=== PATIENT | female | born 1965 | race Caucasian/White ===

== ENCOUNTER 2016-09-29 10:06 | Emergency (ER) | payer BC ==
[~2016-09-29] VITALS: Ht 165.1 cm; Wt 85.0 kg
[~2016-09-29 10:06] MED LIST: ACET-1256 PO; ALBU1AER9 INH; CALCTAB5 PO; CHOL100010 PO; FLAX12003 PO; FRRS300 PO; GLUC10007 PO; MULT-506 PO; OMEG10007 PO; PHYT100T PO; PROP20TA67 PO; VITA100C4 PO
[2016-09-29 10:12] VITALS: TEMP 36.6; Ht 165.1 cm; Wt 85.0 kg
[2016-09-29 10:15] VITALS: O2SAT 99
[2016-09-29 10:58] VITALS: BP 128/77; PULSE 82; O2SAT 97
--- NOTE | 2016-09-29 13:17 | EMERGENCY ROOM VISIT NOTE ---
History Report prepared by Joss: Kristyn Madsen Under the Supervision of: Dr. Deiran Sadnoval M.D. First contact with patient: 10:10 Chief Complaint: CARDIAC ASSESSMENT Stated Complaint: TACHYCARDIA History of Present Illness The patient is a 51 year old female who presents to the Emergency Room as referred by [facility] for a cardiac assessment as she experienced an episode of palpitations and tachycardia just prior to arrival. Currently, patient states that she is feeling better as she had relief after taking Propranolol after the start of her symptoms. At the time of onset of symptoms, patient was at an appointment with [facility] when she suddenly experienced a sensation in her throat that she contracts when she is going into an episode of supraventricular tachycardia, which she notes history of for the past 30 years. Along with the sensation in her throat, patient also felt palpitations to her chest, and she became dizzy and hypotensive. After developing these symptoms, which are all consistent of her past episodes of SVT , patient took Propranolol, as she is instructed to PRN, which did help to relieve her symptoms. Throughout this episode, patient denies having chest pain , shortness of breath, nausea or vomiting. She also denies LOC or other acute complaints. Patient states that she did not experience any new symptoms during this episode that are different than she has had in the past, and as she is now feeling better, she does not wish for additional testing. Source of History: patient Onset: just prior to arrival Position: chest Symptom Intensity: no current pain Quality: other (palpitations) Timing: resolved Modifying Factors (Relieving): other (Propranolol) Associated Symptoms: No LOC, No SOB, No chest pain, No nausea, No vomiting Note: Patient felt dizzy and tachycardic. She was also hypotensive. Review of Systems See HPI for pertinent positives & negatives. A total of 10 systems reviewed and were otherwise negative. Past Medical & Surgical Medical Problems: (1) ATRIAL FIBRILLATION (2) CARDIAC DYSRHYTHMIA NOS (3) Heart disease (4) LYME DISEASE (5) PANIC DISORDER (6) PAROX ATRIAL TACHYCARDIA (7) SOCIAL PHOBIA Family History Lyme disease Social History Smoking Status: Never Smoker Alcohol Use: none Marital Status: Housing Status: lives with significant other Occupation Status: employed Current/Historical Medications Scheduled Acetaminophen (Tylenol), 1,000 MG PO PRN Calcium (Caltrate), 600 MG PO DAILY Cholecalciferol (Vitamin D), 1,000 INTER.UNIT PO DAILY Ferrous Sulfate (Iron Supplement *), 325 MG PO DAILY Fish Oil ([place]-3), 1-2 TABLETS PO DAILY Flaxseed (Linseed) (Flaxseed Oil), 1 CAPSULE PO DAILY Glucosamine Sulfate (Glucosamine), 1,000 MG PO DAILY Multivitamin (Multivitamin), 1 TAB PO DAILY Phytonadione (Vitamin K), 100 MCG PO DAILY Tocopheryl Acet,Dl-Alpha (Vitamin E), 100 INTER.UNIT PO DAILY Scheduled PRN Albuterol (Proair Hfa), 2 PUFFS INH 4-6 hrs PRN for SOB/Wheezing Propranolol (Inderal), 20 MG PO TID PRN for palpitations Allergies Coded Allergies: Penicillins (Verified Allergy, Intermediate, 02/02/15) RASH Cephalosporins (Unverified Allergy, Unknown, [facility], 09/29/16) Physical Exam Vital Signs Date Time Temp Pulse Resp B/P Pulse Ox O2 Delivery O2 Flow Rate FiO2 09/29/16 10:58 82 16 128/77 97 09/29/16 10:15 99 Room Air 09/29/16 10:14 89 09/29/16 10:12 36.6 91 18 109/71 95 Room Air Physical Exam GENERAL: Patient is a healthy-appearing well-nourished 51 year old female. HEAD: Normocephalic atraumatic EYES: Ocular movements intact pupils equal and react to light OROPHARYNX mucous membranes are moist no exudates present no erythema or edema present NECK: Supple no nuchal rigidity CHEST: Good equal expansion LUNGS: Clear and equal to auscultation CARDIAC: Normal S1 and S2 ABDOMEN: Soft nontender no guarding BACK: No CVA tenderness EXTREMITIES: No pain upon palpation normal muscle strength in all groups no clubbing cyanosis or edema NEURO: Patient is following commands is answering questions appropriately. Alert and oriented x3 Cranial Nerves 2-12 grossly intact Medical Decision & Procedures ECG Indication: palpitations Rate (beats per minute): 82 Rhythm: normal sinus Findings: no acute ischemic change, no ectopy ED Course 1013: Past medical records reviewed. The patient was evaluated in room B12. A complete history and physical examination was performed. 1030: I discussed my findings of the patients exam with her at this time. 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 Additional discharge instructions were discussed. She verbalized her understanding and agreement with the treatment plan, and she is now ready for disposition. Medical Decision Differential diagnosis: Etiologies such as premature contractions, electrolyte abnormality, cardiac dysrhythmia, thyroid dysfunction, pulmonary embolism, infection, gastrointestinal, as well as others were entertained. This is a 51-year-old female who presents emergency department complaining of an episode of tachycardia. I will note that the patient has been having these episodes of tachycardia since she was 21 years old. The patient normally takes her propanolol medication and follows up with cardiology. She was sent here by [facility] in [facility]. She currently has no complaints and is refusing IV blood work. The patient feels that she does not need any further workup as she is at her baseline and has been ongoing for the past 20 years. I recommended that she follow up with cardiology. The patient has demonstrated no significant defect in the decision-making capacity to make choices. The encounter had a good level of communication with language the patient can easily understand. I feel trust was present and conveyed that our action/intentions were the best interest of the patient. The patient was given all relevant information and reiterated the explained risks and benefits. The patient explained the reasoning for refusing treatment clearly. The patient possesses and expresses a set of values and goals, the ability to communicate and understand, and an ability to reason and deliberate. Despite acting emphatically, attentively and with the utmost patient's the patient declined further treatment. I offered options, negotiated, and explored every reasonable choice. I must respect the patient's autonomy and that they feel that their choices are best for them despite the associated risks of leaving without completing the evaluation. The patient was informed about the findings as listed above. All questions were answered and he was pleased with the treatment. Return instructions were outlined and the patient was discharged in stable condition. Impression Primary Impression: Supraventricular tachycardia Scribe Attestation The scribe's documentation has been prepared under my direction and personally reviewed by me in its entirety. I confirm that the note above accurately reflects all work, treatment, procedures, and medical decision making performed by me. Departure Information Dispostion Home / Self-Care Referrals Lisa Triana,C.R.N.P. (PCP) Forms IMPORTANT VISIT INFORMATION Patient Instructions A Signature Page, My [facility] Additional Instructions You have been examined and treated today on an emergency basis only. This is not a substitute for, or an effort to provide, complete comprehensive medical care. It is impossible to recognize and treat all injuries or illnesses in a single emergency department visit. It is therefore important that you follow up closely with DR Triana. Call as soon as possible for an appointment. Thank you for your time and consideration. I look forward to speaking with you again soon. Please don't hesitate to call us if you have any questions.
== END 2016-09-29 10:59 | disposition home or self-care (01) ==
LOC: EDBD 10:06 → C.EDB 10:08
DX: I47.1 Supraventricular tachycardia (principal); I48.91 Unspecified atrial fibrillation; I51.9 Heart disease, unspecified; A69.20 Lyme disease, unspecified; Z79.899 Other long term (current) drug therapy; Z88.0 Allergy status to penicillin; Z88.8 Allergy status to other drugs, medicaments and biological substances

== ENCOUNTER 2016-10-11 06:53 | Emergency (ER) | payer BC ==
[~2016-10-11] VITALS: Ht 165.1 cm; Wt 85.3 kg
[2016-10-11 06:57] VITALS: TEMP 36.9; Ht 165.1 cm; Wt 85.3 kg
--- NOTE | 2016-10-11 07:29 | EMERGENCY ROOM VISIT NOTE ---
History First contact with patient: 06:56 Chief Complaint: RESPIRATORY PROBLEMS Stated Complaint: DIFFICULTY BREATHING,WHEEZING,MUCUS THICK Nursing Triage Summary: coughing up thick mucus. having trouble breathing. congestion. History of Present Illness The patient is a 51 year old female who presents to the Emergency Room with complaints of shortness of breath. Shortness of breath started 2 days ago. It is associated with wheezing. Her symptoms are worse at nighttime and in the morning. She does not have ProAir to take PRN, but did not as "it makes my heart go fast " She also notes increased sputum production. She says she has baseline of chronic sputum production, but it has worsened x 2 days. The sputum is yellow. She does note that she has had anxiety since June and she started divorce proceedings at that time. She has been taking Diazepam daily. since that time. She denies symptoms of panic or increased anxiety in the past 2 days. She denies fevers, chills or nightsweats. Her appetite is always variable and this has not changed since symptoms started. She denies any long-haul flights, prolonged immobility, or recent surgery. She denies chest pain, palpitation, pleurisy, pre-syncope or syncope. She denies bowel or bladder symptoms. Review of Systems A 10 point review of systems was negative unless stated above. Past Medical/Surgical History Medical Problems: (1) ATRIAL FIBRILLATION (2) CARDIAC DYSRHYTHMIA NOS (3) Heart disease (4) LYME DISEASE (5) PANIC DISORDER (6) PAROX ATRIAL TACHYCARDIA (7) SOCIAL PHOBIA Family History Lyme disease Diabetes Malignancy, otherwise unspecified Social History Smoking Status: Never Smoker Smokeless Tobacco Use: No Alcohol Use: none Drug Use: none Marital Status: , Occupation Status: employed Current/Historical Medications Scheduled Acetaminophen (Tylenol), 1,000 MG PO PRN Azithromycin (Azithromycin), 1 TAB PO DAILY Calcium Carbonate (Calcium), 600 MG PO DAILY Cholecalciferol (Vitamin D), 1,000 UNIT PO DAILY Diltiazem Hcl Coated Beads (Diltiazem Hcl Er), 120 MG PO QAM Glucosamine Sulfate (Glucosamine), 1,000 MG PO DAILY Multivitamin (Multivitamin), 1 TAB PO DAILY [place]-3 Fatty Acids (Fish Oil), 1 CAP PO DAILY Sertraline HCl (Sertraline HCl), 50 MG PO QAM Tocopheryl Acet,Dl-Alpha (Vitamin E), 100 INTER.UNIT PO DAILY Scheduled PRN Albuterol Hfa (Ventolin Hfa), 2 PUFFS INH Q4-6 HOURS PRN for SOB/Wheezing Dextromethorphan-Guaifenesin (Mucinex Dm), 1 TAB PO Q12 PRN for PRN Propranolol (Inderal), 20 MG PO TID PRN for palpitations Allergies Coded Allergies: Penicillins (Verified Allergy, Intermediate, 10/11/16) RASH Cephalosporins (Unverified Allergy, Unknown, [facility], 10/11/16) Physical Exam Vital Signs Date Time Temp Pulse Resp B/P Pulse Ox O2 Delivery O2 Flow Rate FiO2 10/11/16 07:35 96 Room Air 10/11/16 06:57 36.9 95 18 116/75 96 Room Air 10/11/16 06:57 96 Room Air Pain Rating (0-10): 0 Physical Exam Constitutional: Vital signs as above were reviewed. Eyes: Pupils equal, round, and reactive to light. Extraocular muscles are intact. No proptosis. No photophobia. ENT: Mucous membranes are moist. Oropharynx is clear. No sinus tenderness. TMs are clear bilaterally. Cardiovascular: Heart with a regular rate and rhythm. Pulses are palpable and symmetric in all 4 extremities. No pedal edema appreciated. Respiratory: Subtle crackles noted at right base. No wheezes, rales, or rhonchi appreciated. No accessory muscle use. No retractions. No increased work of breathing. GI: Abdomen soft, nontender, nondistended. Normal active bowel sounds. No abdominal hernias appreciated. No rebound. No guarding. : No CVA tenderness appreciated. Musculoskeletal: No midline cervical or vertebral tenderness. No gross deformities. No bony tenderness. No calf swelling or tenderness. Integumentary: Warm, dry, no rashes appreciated. Neurological: Patient awake, alert, and oriented x 3. Cranial nerves two through 12 grossly intact. Motor 5 out of 5 strength bilateral upper and lower extremities. Lymph: No cervical lymphadenopathy appreciated. Medical Decision & Procedures ER Provider Diagnostic Interpretation: CLINICAL HISTORY: Shortness of breath. COMPARISON STUDY: 02/02/2015 FINDINGS: The cardiac and mediastinal contours remain stable. There is a stable 13 mm nodule at the right lung base. There is a subtle right basilar airspace opacity.[ There is no failure. There are no pleural effusions. IMPRESSION: Interval development of a subtle right basilar airspace opacity, consistent with a focal pneumonitis. Clinical and radiographic follow-up is recommended. Electronically signed by: Manohar Dotson M.D. 10/11/2016 7:57 AM Dictated Date/Time: 10/11/2016 7:55 AM Laboratory Results 10/11/16 07:29 10/11/16 07:29 Test 10/11/16 07:29 10/11/16 07:31 Red Blood Count 4.75 M/uL (4.2-5.4) Mean Corpuscular Volume 90.9 fL (80-100) Mean Corpuscular Hemoglobin 31.2 pg (25-34) Mean Corpuscular Hemoglobin Concent 34.3 g/dl (32-36) RDW Standard Deviation 43.8 fL (36.4-46.3) RDW Coefficient of Variation 13.2 % (11.5-14.5) Mean Platelet Volume 9.0 fL (7.4-10.4) Anion Gap 11.0 mmol/L (3-11) Est Creatinine Clear Calc Drug Dose 103.7 ml/min Estimated GFR () 117.1 Estimated GFR (Non- 101.0 BUN/Creatinine Ratio 7.4 (10-20) Calcium Level 9.0 mg/dl (8.5-10.1) Bedside D-Dimer 266 ng/mlFEU (0-450) Medications Administered Azithromycin 500 mg one dose ECG Change: EKG NSR No ectopy or pauses No acute ST or T wave changes Borderline left atrial enlargement ED Course 0700 - Patient evaluated Orders placed: CBC, BMP, EKG, CXR 07:20 - Reviewed with Dr. Loomis D-dimer ordered 08:00 - Labs reviewed; CBC and BMP WNL D-dimer negative CXR - New right basal opacification; stable right basal nodule 08:05 - Findings discussed with patient. Recommend discharge home, patient agreeable 08:20 - Azithromycin 500 mg one dose ordered 08:30 - Discharge completed; patient discharged in stable condition Medical Decision Patient presents to the ED with shortness of breath. Previous records were reviewed. Differential for presentation includes asthma, bronchitis, pneumonia, arrhythmia , pulmonary embolism. On examination, there was no evidence of wheezing. There were subtle right basilar crackles suggestive of PNA. CXR confirm presence of opacity. D-dimer was negative. No other findings suggestive of PE such as tachycardia, hypoxia or RV strain on EKG. Patient does have history of SVT so arrhythmia was considered. EKG however was unremarkable. Given CXR findings, patient likely has mild community acquired PNA. Curb score is 0, so outpatient treatment is appropriate. She was started on Azithromycin 500 mg in the ED and will be discharged with an additional 4 days of 250 mg per day. Patient was discharged in stable condition. She will follow-up with her PCP. Impression Primary Impression: Community acquired pneumonia Ruled Out: Asthma, Anxiety, SVT (supraventricular tachycardia) Departure Information Dispostion Home / Self-Care Condition GOOD Prescriptions Azithromycin (Azithromycin) 250 Mg Tab 1 TAB PO DAILY for 4 Days, #4 TAB START on Wednesday10/12/2016 Prov: Raul Castillo MD 10/11/16 Referrals Mazin Salguero M.D. (PCP) Patient Instructions My [facility] Additional Instructions You came to the ED for shortness of breath. We did a chest x-ray which did show a possible pneumonia in your right lung. You also have a stable lung nodule that has not changed compared to previous x- ray or CT scans. Your oxygen levels here in the ED are excellent and fortunately, you are not experiencing respiratory difficulties that require admission. As such you can continue your recovery at home. We will give you one dose of antibiotic today in the ED and will send you home with a prescription for an additional 4 days of antibiotics that you should start tomorrow. The antibiotic is Azithromycin. If your symptoms fail to improve, acutely worsen, please seek medical attention immediately by either calling your primary care provider or going to your nearest emergency department. Otherwise, please see your primary care provider in 3-5 days to ensure that your symptoms continue to improve. You will need a chest x-ray in 4-6 to ensure resolution of your pneumonia. It was a pleasure to be involved in your care.
[2016-10-11 07:41] LABS: HEMATOCRIT 43.2 % (37-47); MEAN CELL VOLUME 90.9 fL (80-100); MEAN CORPUSCULAR HEMOGLOBIN 31.2 pg (25-34); MEAN CORPUSCULAR HGB CONC 34.3 g/dl (32-36); PLATELET COUNT 248 K/uL (130-400); RED BLOOD COUNT 4.75 M/uL (4.2-5.4); WHITE BLOOD COUNT 5.27 K/uL (4.8-10.8)
[2016-10-11] MEDS ORDERED: DILT120C PO (07:54)
[2016-10-11] MEDS ORDERED: CALC-393 PO (07:54)
[2016-10-11] MEDS ORDERED: VTME100 PO (07:54)
[2016-10-11] MEDS ORDERED: VNTHFA/IN INH (07:54)
[2016-10-11] MEDS ORDERED: ZLF/50 PO (07:54)
[2016-10-11] MEDS ORDERED: CHOL100010 PO (07:54)
[2016-10-11] MEDS ORDERED: OMEG1CAP81 PO (07:55)
[2016-10-11] MEDS ORDERED: DEXT30TA7 PO (07:55)
[2016-10-11 07:58] LABS: BUN/CREATININE RATIO 7.4 (10-20); CREATININE 0.7 mg/dl (0.60-1.20); POTASSIUM 3.8 mmol/L (3.5-5.1)
--- NOTE | 2016-10-11 07:59 | DIAGNOSTIC IMAGING REPORT ---
CHEST 2 VIEWS ROUTINE CLINICAL HISTORY: Shortness of breath. COMPARISON STUDY: 02/02/2015 FINDINGS: The cardiac and mediastinal contours remain stable. There is a stable 13 mm nodule at the right lung base. There is a subtle right basilar airspace opacity.[ There is no failure. There are no pleural effusions. IMPRESSION: Interval development of a subtle right basilar airspace opacity, consistent with a focal pneumonitis. Clinical and radiographic follow-up is recommended. Electronically signed by: Manohar Dotson M.D. 10/11/2016 7:57 AM Dictated Date/Time: 10/11/2016 7:55 AM
[2016-10-11] MEDS ORDERED: ZTHM250 PO (08:23)
[2016-10-11] MEDS ORDERED: AZITHROMYCIN 250 MG TAB PO ONE (08:30)
--- NOTE | 2016-10-11 08:51 | EMERGENCY ROOM VISIT NOTE ---
History Report prepared by Muibe: Margaret Thompson Under the Supervision of: Dr. Derian Loomis D.O. First contact with patient: 06:56 Chief Complaint: RESPIRATORY PROBLEMS Stated Complaint: DIFFICULTY BREATHING,WHEEZING,MUCUS THICK Nursing Triage Summary: coughing up thick mucus. having trouble breathing. congestion. History of Present Illness The patient is a 51 year old female who presents to the Emergency Room with complaints of shortness of breath that started 2 days ago. It is associated with wheezing. Her symptoms are worse at nighttime and in the morning. She does not have ProAir to take PRN, but did not as "it makes my heart go fast". She also notes increased sputum production. She says she has baseline of chronic sputum production, but it has worsened x 2 days. The sputum is yellow. She does note that she has had anxiety since June and she started divorce proceedings at that time. She has been taking Diazepam daily since that time. She denies symptoms of panic or increased anxiety in the past 2 days. She denies fevers, chills or night-sweats. Her appetite is always variable and this has not changed since symptoms started. She denies any long-haul flights, prolonged immobility, or recent surgery. She denies chest pain, palpitation, pleurisy, pre-syncope or syncope. She denies bowel or bladder symptoms. 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 A total of 10 systems reviewed and were otherwise negative. Past Medical & Surgical Medical Problems: (1) ATRIAL FIBRILLATION (2) CARDIAC DYSRHYTHMIA NOS (3) Heart disease (4) LYME DISEASE (5) PANIC DISORDER (6) PAROX ATRIAL TACHYCARDIA (7) SOCIAL PHOBIA Family History Lyme disease Social History Smoking Status: Never Smoker Alcohol Use: none Marital Status: Housing Status: lives with significant other Occupation Status: employed Current/Historical Medications Scheduled Acetaminophen (Tylenol), 1,000 MG PO PRN Azithromycin (Azithromycin), 1 TAB PO DAILY Calcium Carbonate (Calcium), 600 MG PO DAILY Cholecalciferol (Vitamin D), 1,000 UNIT PO DAILY Diltiazem Hcl Coated Beads (Diltiazem Hcl Er), 120 MG PO QAM Glucosamine Sulfate (Glucosamine), 1,000 MG PO DAILY Multivitamin (Multivitamin), 1 TAB PO DAILY [place]-3 Fatty Acids (Fish Oil), 1 CAP PO DAILY Sertraline HCl (Sertraline HCl), 50 MG PO QAM Tocopheryl Acet,Dl-Alpha (Vitamin E), 100 INTER.UNIT PO DAILY Scheduled PRN Albuterol Hfa (Ventolin Hfa), 2 PUFFS INH Q4-6 HOURS PRN for SOB/Wheezing Dextromethorphan-Guaifenesin (Mucinex Dm), 1 TAB PO Q12 PRN for PRN Propranolol (Inderal), 20 MG PO TID PRN for palpitations Allergies Coded Allergies: Penicillins (Verified Allergy, Intermediate, 10/11/16) RASH Cephalosporins (Unverified Allergy, Unknown, [facility], 10/11/16) Physical Exam Vital Signs Date Time Temp Pulse Resp B/P Pulse Ox O2 Delivery O2 Flow Rate FiO2 10/11/16 07:35 96 Room Air 10/11/16 06:57 36.9 95 18 116/75 96 Room Air 10/11/16 06:57 96 Room Air Physical Exam CONSTITUTIONAL/VITAL SIGNS: Reviewed / noted above. GENERAL: Non-toxic in appearance. INTEGUMENTARY: Warm, dry, and [place]. HEAD: Normocephalic. EYES: without scleral icterus or trauma. ENT/OROPHARYNX: clear and moist. LYMPHADENOPATHY/NECK: Is supple without lymphadenopathy or meningismus. RESPIRATORY: Lungs clear and equal. CARDIOVASCULAR: Regular rate and rhythm. GI/ABDOMEN: Soft and nontender. No organomegaly or pulsatile mass. No rebound or guarding. Normal bowel sounds. EXTREMITIES: Warm and well perfused. BACK: No CVA tenderness. NEUROLOGICAL: Intact without focal deficits. PSYCHIATRIC: normal affect. MUSCULOSKELETAL: Normally developed with good muscle tone. Medical Decision & Procedures ER Provider Diagnostic Interpretation: This X-Ray was reviewed and interpreted by myself and the radiologist. CHEST 2 VIEWS ROUTINE IMPRESSION: Interval development of a subtle right basilar airspace opacity, consistent with a focal pneumonitis. Clinical and radiographic follow-up is recommended. Electronically signed by: Manohar Dotson M.D. 10/11/2016 7:57 AM Laboratory Results 10/11/16 07:29 10/11/16 07:29 Test 10/11/16 07:29 10/11/16 07:31 Red Blood Count 4.75 M/uL (4.2-5.4) Mean Corpuscular Volume 90.9 fL (80-100) Mean Corpuscular Hemoglobin 31.2 pg (25-34) Mean Corpuscular Hemoglobin Concent 34.3 g/dl (32-36) RDW Standard Deviation 43.8 fL (36.4-46.3) RDW Coefficient of Variation 13.2 % (11.5-14.5) Mean Platelet Volume 9.0 fL (7.4-10.4) Anion Gap 11.0 mmol/L (3-11) Est Creatinine Clear Calc Drug Dose 103.7 ml/min Estimated GFR () 117.1 Estimated GFR (Non- 101.0 BUN/Creatinine Ratio 7.4 (10-20) Calcium Level 9.0 mg/dl (8.5-10.1) Bedside D-Dimer 266 ng/mlFEU (0-450) Laboratory results as stated above per my review. ECG Indication: SOB/dyspnea Rate (beats per minute): 77 Rhythm: normal sinus (normal sinus rhythm) Findings: no acute ischemic change, no ectopy ED Course 0733: Previous medical records were reviewed. The patient was evaluated in room B7. A complete history and physical examination was performed. 0825: I reevaluated the patient. She is feeling much better. I discussed her results and discharge instructions and she verbalized complete understanding and agreement. 0830: Azithromycin 500 mg PO. Medical Decision the differential was considered includes acute myocardial infarction, acute coronary syndrome, myocarditis, pericarditis, pericardial effusions /tamponad, esophageal perforation, pulmonary embolism, pneumonia, pneumothorax, cardiomyopathy, congestive heart, anemia , COPD/asthma exacerbation. This is a 51-year-old female who presents to the ED with a chief complaint of shortness of breath. The patient acts she states that she is not experiencing any shortness of breath at this time. She states that it seemed worse at night when she was lying down. She feels that she has mucous buildup and congestion. She has tried Mucinex for this. Further details noted above. The patient's exam is completely normal. There is no wheezing on exam. She is in no respiratory distress. Her lungs are clear. Chest x-ray was suggestive of right base pneumonia. The patient was started on the Zithromax. She is felt to be stable for discharge. Seen with resident. Impression Primary Impression: Congestion of nasal sinus Additional Impression: Community acquired pneumonia Scribe Attestation The scribe's documentation has been prepared under my direction and personally reviewed by me in its entirety. I confirm that the note above accurately reflects all work, treatment, procedures, and medical decision making performed by me. Departure Information Dispostion Home / Self-Care Prescriptions Azithromycin (Azithromycin) 250 Mg Tab 1 TAB PO DAILY for 4 Days, #4 TAB START on Wednesday10/12/2016 Prov: Raul Castillo MD 10/11/16 Referrals Mazin Salguero M.D. (PCP) Patient Instructions My [facility] Problem Qualifiers
[2016-10-11 08:56] VITALS: BP 131/78; PULSE 89; O2SAT 95
== END 2016-10-11 08:56 | disposition home or self-care (01) ==
LOC: C.EDB 06:54
DX: J18.9 Pneumonia, unspecified organism (principal); J45.909 Unspecified asthma, uncomplicated; F41.9 Anxiety disorder, unspecified; I47.1 Supraventricular tachycardia; F40.10 Social phobia, unspecified; Z83.3 Family history of diabetes mellitus; Z79.899 Other long term (current) drug therapy

== ENCOUNTER → 2016-10-22 | Outpatient (CLI) | payer BC ==
[~2016-10-22] MED LIST changes: -ALBU1AER9 INH; +CALC-393 PO; -CALCTAB5 PO; +DEXT30TA7 PO; +DILT120C PO; -FLAX12003 PO; -FRRS300 PO; -OMEG10007 PO; +OMEG1CAP81 PO; -PHYT100T PO; -VITA100C4 PO; +VNTHFA/IN INH; +VTME100 PO; +ZLF/50 PO; +ZTHM250 PO
--- NOTE | 2016-10-22 10:39 | DIAGNOSTIC IMAGING REPORT ---
LUMBAR SPINE 5 VIEWS CLINICAL HISTORY: Low back pain. FINDINGS: 5 views of the lumbar spine are obtained. No prior studies are available for comparison at the time of dictation. The skeletal structures are osteopenic. There is no radiographic evidence of fracture or malalignment. Vertebral body height and alignment are maintained. The transverse and spinous processes are intact. There is no evidence of spondylolysis. Small anterior osteophytes are noted throughout. Mild degenerative disc space narrowing seen at L3-L4 and L5-S1. The remaining intervertebral disc spaces appear preserved. Mild facet arthropathy is noted in the lower lumbar region. The visualized bony pelvis appears intact. Mild sclerotic change is noted in the sacroiliac joints. There is a nonobstructed abdominal bowel gas pattern. Large phleboliths are noted in the pelvis. IMPRESSION: 1. There is no acute bony abnormality seen involving the lumbosacral spine. 2. Osteopenia and mild spondylotic change as above. Electronically signed by: Robbin Boyle M.D. 10/22/2016 10:38 AM Dictated Date/Time: 10/22/2016 10:36 AM
== END | disposition home or self-care (01) ==
LOC: C.RAD1850 10:02
PROVIDERS: ATTEND Internal Medicine
DX: Z02.71 Encounter for disability determination (principal); M85.88 Other specified disorders of bone density and structure, other site

== ENCOUNTER → 2017-01-22 | Outpatient (CLI) | payer OTHER ==
[~2017-01-22] MED LIST changes: +APPL300T3 PO; +AZIT-57 PO; +DOCU100C31 PO; +HYDR25CA PO; +MAGN250T8 PO; +POLY335019 PO; +SERT-234 PO; -ZTHM250 PO
[2017-01-22 12:54] LABS: BLOOD UREA NITROGEN 7 mg/dl (7-18); CALCIUM 9.3 mg/dl (8.5-10.1); CARBON DIOXIDE 29 mmol/L (21-32); CHLORIDE 105 mmol/L (98-107); CREATININE 0.67 mg/dl (0.60-1.20); GLUCOSE 90 mg/dl (70-99); SODIUM 140 mmol/L (136-145)
[2017-01-22 12:57] LABS: CHOLESTEROL 192 mg/dl (0-200); CHOLESTEROL/HDL RATIO 3.8; HDL CHOLESTEROL 50 mg/dl; LDL CHOLESTEROL CALCULATED 125 mg/dl; TRIGLYCERIDES 83 mg/dl (0-150); VERY LOW DENSITY LIPOPROT CALC 17 mg/dl
[2017-01-22 13:29] LABS: ESTIMATED AVERAGE GLUCOSE 114 mg/dl; HA1C FLAG Normal (Normal)
== END | disposition home or self-care (01) ==
LOC: C.LABPVFM 07:08
PROVIDERS: ATTEND Nurse Practitioner Family
DX: R73.01 Impaired fasting glucose (principal); Z30.8 Encounter for other contraceptive management

== ENCOUNTER → 2017-03-19 | Outpatient (CLI) | payer OTHER ==
[~2017-03-19] MED LIST changes: -APPL300T3 PO; -AZIT-57 PO; -DOCU100C31 PO; -HYDR25CA PO; -MAGN250T8 PO; -POLY335019 PO; -SERT-234 PO; +ZTHM250 PO
--- NOTE | 2017-03-19 15:22 | MAMMOGRAPHY REPORT ---
BILATERAL DIGITAL SCREENING MAMMOGRAM TOMOSYNTHESIS WITH CAD: 03/19/2017 CLINICAL HISTORY: Routine screening. TECHNIQUE: Breast tomosynthesis in addition to standard 2D mammography was performed. Current study was also evaluated with a Computer Aided Detection (CAD) system. COMPARISON: Comparison is made to exams dated: 09/17/2015 mammogram, 08/30/2014 mammogram, 3 mammogram, 07/11/2012 mammogram, 06/05/2011 mammogram, and 11/29/2009 mammogram - [facility]. BREAST COMPOSITION: There are scattered areas of fibroglandular density in both breasts. FINDINGS: No suspicious masses, calcifications, or areas of architectural distortion are noted in ei ther breast. There has been no significant interval change compared to prior exams. Bilateral benign -appearing calcifications are not significantly changed. Intramammary lymph nodes in bilateral upper outer quadrants are stable. IMPRESSION: ACR BI-RADS CATEGORY 2: BENIGN There is no mammographic evidence of malignancy. A 1 year screening mammogram is recommended. The pa tient will receive written notification of the results. Approximately 10% of breast cancers are not detected with mammography. A negative mammographic report should not delay biopsy if a clinically suggestive mass is present. Carolyn Mancia M.D. ah/:03/19/2017 13:10:04 Nurse Practitioner Per Diem: Nav CATES(Cresencio)(M), [facility] letter sent: Normal 1/2 BI-RADS Code: ACR BI-RADS Category 2: Benign
== END | disposition home or self-care (01) ==
LOC: C.MAMM 08:44
PROVIDERS: ATTEND Family Medicine
DX: Z12.31 Encounter for screening mammogram for malignant neoplasm of breast (principal)

== ENCOUNTER 2017-07-04 15:55 | Emergency (ER) | payer OTHER ==
[~2017-07-04] VITALS: Ht 165.1 cm; Wt 77.5 kg
[2017-07-04 16:07] VITALS: TEMP 37.1; Ht 165.1 cm; Wt 77.5 kg
[2017-07-04] MEDS ORDERED: POLY335019 PO (16:41)
[2017-07-04] MEDS ORDERED: DOCU100C31 PO (16:41)
[2017-07-04] MEDS ORDERED: HYDR25CA PO (16:41)
[2017-07-04] MEDS ORDERED: MAGN250T8 PO (16:41)
[2017-07-04] MEDS ORDERED: SERT-234 PO (16:41)
[2017-07-04] MEDS ORDERED: APPL300T3 PO (16:41)
--- NOTE | 2017-07-04 16:48 | EMERGENCY ROOM VISIT NOTE ---
History Report prepared by Joss: Elzbieta Castaneda Under the Supervision of: Dr. Connor Tuttle D.O. First contact with patient: 16:11 Chief Complaint: CONSTIPATION Stated Complaint: DIFFICULTY GOING TO THE BATHROOM History of Present Illness The patient is a 51 year old female who presents to the Emergency Room with complaints of persistent constipation starting a few weeks ago. She has been going to the bathroom because she feels like she needs to have a bowel movement , but has been mostly just passing gas. She has had mainly small bowel movements. She has tried taking Miralax and prunes. She has had some medium sized bowel movements after the Miralax and prunes. She last had a decent bowel movement 2 days ago. She feels bloated. She has never had this before. She denies any abdominal pain. She has not had a colonoscopy before. She has a history of heart problems and anxiety. She is not on any new medications. She denies any previous abdominal surgeries. She denies any tobacco or alcohol use. She denies any history of colon cancer. Source of History: patient Onset: few weeks ago Position: other (global) Quality: other (constipation) Timing: other (persistent) Modifying Factors (Relieving): other (miralax, prunes) Associated Symptoms: No abdominal pain Review of Systems See HPI for pertinent positives & negatives. A total of 10 systems reviewed and were otherwise negative. Past Medical & Surgical Medical Problems: (1) ATRIAL FIBRILLATION (2) CARDIAC DYSRHYTHMIA NOS (3) Heart disease (4) LYME DISEASE (5) PANIC DISORDER (6) PAROX ATRIAL TACHYCARDIA (7) SOCIAL PHOBIA Family History Lyme disease Social History Smoking Status: Never Smoker Alcohol Use: none Drug Use: none Marital Status: Housing Status: lives with significant other Occupation Status: employed Current/Historical Medications Scheduled Apple Cider Vinegar (Apple Cider Vinegar), 300 MG PO DAILY Cholecalciferol (Vitamin D), 1,000 UNIT PO DAILY Diltiazem Hcl Coated Beads (Diltiazem Hcl Er), 120 MG PO QAM Docusate Sodium (Docusate Sodium), 100 MG PO BID Hydroxyzine Pamoate (Vistaril), 25 MG PO TID Magnesium Oxide (Mg Supplement (Magnesium), 250 MG PO DAILY [place]-3 Fatty Acids (Fish Oil), 1 CAP PO DAILY Polyethylene Glycol 3350 (Miralax), 17 GM PO DAILY Sertraline (Zoloft), 150 MG PO DAILY Scheduled PRN Propranolol (Inderal), 20 MG PO TID PRN for palpitations Allergies Coded Allergies: Penicillins (Verified Allergy, Intermediate, 07/04/17) RASH Cephalosporins (Unverified Allergy, Unknown, [facility], 07/04/17) Physical Exam Vital Signs Date Time Temp Pulse Resp B/P (MAP) Pulse Ox O2 Delivery O2 Flow Rate FiO2 07/04/17 18:27 88 16 115/76 98 07/04/17 16:07 37.1 99 16 125/77 97 Room Air Physical Exam GENERAL: Patient is awake, alert, and in no acute distress. Patient is resting comfortably and showing no signs of anxiety EYES: The conjunctivae are clear. The pupils are round and reactive. EARS, NOSE, MOUTH AND THROAT: The nose is without any evidence of any deformity. Mucous membranes are moist tongue is midline NECK: The neck is nontender and supple. RESPIRATORY: Normal respiratory effort is noted there is no evidence of wheezing rhonchi or rales CARDIOVASCULAR: Regular rate and rhythm noted there no murmurs rubs or gallops normal S1 normal S2 GASTROINTESTINAL: The abdomen is mildly distended, but soft. No guarding or rigidity. MUSCULOSKELETAL/EXTREMITIES: There is no evidence of gross deformity full range of motion is noted in the hips and shoulders SKIN: There is no obvious evidence of any rash. There are no petechiae, pallor or cyanosis noted. NEUROLOGIC: Patient is awake alert and oriented x3 Medical Decision & Procedures ER Provider Diagnostic Interpretation: X-ray results as stated below per interpretation by me and the radiologist. PA CHEST RADIOGRAPH AND UPRIGHT AND SUPINE AP RADIOGRAPHS OF THE ABDOMEN CLINICAL HISTORY: Constipation. COMPARISON STUDY: Chest radiograph October 11, 2016. FINDINGS: A 1.3 cm nodular density projects over the right lower lung. There is no pneumothorax or pleural effusion. There is no evidence of pulmonary edema. Cardiomediastinal silhouette is normal. There is no free air. The bowel gas pattern is normal. Pelvic calcifications likely reflect phleboliths. There is a moderate amount of stool within the colon. IMPRESSION: 1. No free air or evidence of bowel obstruction. 2. Moderate amount of stool within the colon. 3. 1.3 cm nodular density which projects over the right lower lung. This could reflect a nipple shadow or the right lower lobe nodule shown on chest CT of July 09, 2010. A follow-up nonemergent chest CT is recommended. Electronically signed by: Kam Wellington M.D. 07/04/2017 5:31 PM Dictated Date/Time: 07/04/2017 5:27 PM Medications Administered Medications (Trade) Dose Ordered Sig/Dottie Route Start Time Stop Time Status Last Admin Dose Admin Magnesium Citrate (Citrate Of Magnesia Soln) 296 ml NOW ONCE PO 07/04/17 18:00 07/04/17 18:01 DC 07/04/17 18:00 296 ML ED Course 1616: The patient was evaluated in room C7. A complete history and physical examination were performed. 1751: Upon reevaluation, the patient is resting comfortably. I discussed the results and treatment plan with her. She verbalized agreement of the treatment plan. She was discharged home. 1800: Magnesium Citrate 296 ml PO. Medical Decision Prior records/ancillary studies reviewed. Triage Nursing notes reviewed. The patient's history was concerning for abdominal pain. Differential diagnosis: Etiologies such as appendicitis, diverticulitis, PUD, biliary pathology, UTI, pancreatitis, obstruction, mesenteric ischemia, aortic pathology, infections, inflammatory bowel disease, renal colic, as well as others were entertained. The patient is a 51-year-old female who presented to the emergency department for an evaluation of constipation. The patient does not appear to have a physical exam consistent with an acute surgical abdomen. She was not found have signs of bowel obstruction on x-ray. She was encouraged to use magnesium citrate as prescribed and continue all other medications as prescribed. Otherwise she was encouraged to return to emergency department immediately if symptoms change worsen or the need arises. Medication Reconcilliation Current Medication List: was personally reviewed by me Blood Pressure Screening Patient's blood pressure: Normal blood pressure Blood pressure disposition: Did not require urgent referral Impression Primary Impression: Constipation Scribe Attestation The scribe's documentation has been prepared under my direction and personally reviewed by me in its entirety. I confirm that the note above accurately reflects all work, treatment, procedures, and medical decision making performed by me. Departure Information Dispostion Home / Self-Care Referrals Mazin Salguero M.D. (PCP) Forms HOME CARE DOCUMENTATION FORM, IMPORTANT VISIT INFORMATION Patient Instructions Constipation, My [facility] Additional Instructions Continue all medications as prescribed. Call your family the morning to schedule a follow-up appointment. Drink half of the bottle of the magnesium citrate and then wait 4 hours. Finish the rest of the bottle in 4 hours. Weight 24 hours. If you do not have a significant bowel movement in that time. Be sure to follow-up with your family physician sooner. Otherwise continue the [place] lax as prescribed. Return to the emergency apartment immediately if symptoms change worsen or need arises. Problem Qualifiers Primary Impression: Constipation Constipation type: unspecified constipation type Qualified Codes: K59.00 - Constipation, unspecified
--- NOTE | 2017-07-04 17:32 | DIAGNOSTIC IMAGING REPORT ---
PA CHEST RADIOGRAPH AND UPRIGHT AND SUPINE AP RADIOGRAPHS OF THE ABDOMEN CLINICAL HISTORY: Constipation. COMPARISON STUDY: Chest radiograph October 11, 2016. FINDINGS: A 1.3 cm nodular density projects over the right lower lung. There is no pneumothorax or pleural effusion. There is no evidence of pulmonary edema. Cardiomediastinal silhouette is normal. There is no free air. The bowel gas pattern is normal. Pelvic calcifications likely reflect phleboliths. There is a moderate amount of stool within the colon. IMPRESSION: 1. No free air or evidence of bowel obstruction. 2. Moderate amount of stool within the colon. 3. 1.3 cm nodular density which projects over the right lower lung. This could reflect a nipple shadow or the right lower lobe nodule shown on chest CT of July 09, 2010. A follow-up nonemergent chest CT is recommended. Electronically signed by: Kam Wellington M.D. 07/04/2017 5:31 PM Dictated Date/Time: 07/04/2017 5:27 PM
[2017-07-04] MEDS ORDERED: MAGNESIUM CITRATE 296 ML/BTL PO ONE (18:00)
[2017-07-04 18:27] VITALS: BP 115/76; PULSE 88; O2SAT 98
== END 2017-07-04 18:28 | disposition home or self-care (01) ==
LOC: C.EDB 15:58 → C.EDC 18:28
DX: K59.00 Constipation, unspecified (principal); I48.91 Unspecified atrial fibrillation; I51.9 Heart disease, unspecified; F41.9 Anxiety disorder, unspecified; Z79.899 Other long term (current) drug therapy; Z88.0 Allergy status to penicillin; Z88.8 Allergy status to other drugs, medicaments and biological substances

== ENCOUNTER → 2017-07-14 | Outpatient (CLI) | payer OTHER ==
[~2017-07-14] MED LIST changes: -ACET-1256 PO; +APPL300T3 PO; -CALC-393 PO; -DEXT30TA7 PO; +DOCU100C31 PO; -GLUC10007 PO; +HYDR25CA PO; +MAGN250T8 PO; -MULT-506 PO; +POLY335019 PO; +SERT-234 PO; -VNTHFA/IN INH; -VTME100 PO; -ZLF/50 PO; -ZTHM250 PO
--- NOTE | 2017-07-14 08:24 | DIAGNOSTIC IMAGING REPORT ---
(CHEST) THORAX WITHOUT CT DOSE: 199.88 mGy.cm HISTORY: Lung nodule R91.[address] of the chest for f TECHNIQUE: Multiaxial CT images of the chest were performed without contrast. A dose lowering technique was utilized adhering to the principles of ALARA. COMPARISON: CT 07/09/2010. Chest series dated 07/04/2017 FINDINGS: There is a solitary pulmonary nodule posterior aspect right lower lobe unchanged compared to the prior CT study 2009. This is a maximum dimension of 1.1 cm. Shows no evidence for internal calcification. Margins are well-circumscribed. It is considered stable. Lungs otherwise are clear. This is a considerable improvement compared to the patient's prior CT study. There are no focal infiltrative changes. There are no additional nodular findings. Hilar and mediastinal regions show no significant adenopathy. IMPRESSION: 1. 1.1 cm well-circumscribed nodule right lung base. 2. This is unchanged compared to the CT study of 2009, and represents the nodular density seen on chest series of 07/02/2017. 3. Given its stability compared to 2009, no additional follow-up is indicated. This is considered a benign finding. The above report was generated using voice recognition software. It may contain grammatical, syntax or spelling errors. Electronically signed by: Philip Hirsch M.D. 07/14/2017 8:23 AM Dictated Date/Time: 07/14/2017 8:18 AM
== END | disposition home or self-care (01) ==
LOC: C.CTS 07:47
PROVIDERS: ATTEND Nurse Practitioner Family
DX: R91.1 Solitary pulmonary nodule (principal)

== ENCOUNTER → 2017-10-15 | Day surgery (SDC) | payer BC, OTHER ==
[2017-09-30 07:42] VITALS: Ht 165.1 cm; Wt 81.4 kg
[~2017-10-15] VITALS: Ht 165.1 cm; Wt 81.4 kg
[~2017-10-15] MED LIST changes: +LIDOCAINE HCL 2% 2 ML VIAL (20MG/ML) ONE; +MULT-506 PO; -OMEG1CAP81 PO; +PROPOFOL IV EMULSION 10 MG/ML 20 ML VIAL IV ONE; +SODIUM CHLORIDE 0.9% 500ML 500 ML IV ONE; +[UNRECOGNIZED DRUG - OTHER] PO
--- NOTE | 2017-10-15 09:25 | Endo History and Physical ---
History & Physical Date of Service: Oct 15, 2017. Chief Complaint: Screening Referring Physician: Dr. Salguero History of Present Illness 52 yo CF who presents for screening colonoscopy. Past Medical History Arthritis, Anxiety, Hypertension, Depression Past Surgical History Hx Cardiac Surgery: Yes (CARDIAC ABLATION) Hx Internal Defibrillator: No Hx Pacemaker: No Hx Abdominal Surgery: Yes (D&C) Hx of Implantable Prosthesis: No Hx Post-Op Nausea and Vomiting: No Hx Cancer Surgery: No Hx Thoracic Surgery: No Hx Orthopedic: No Hx Urinary Tract Surgery: No Family History None Social History Smoking Status: Current Some Day Smoker Hx Substance Use: No Hx Alcohol Use: Yes (RARELY) Allergies Coded Allergies: Cephalosporins (Unverified Allergy, Severe, DIFFICULTY BREATHING, 09/30/17) Penicillins (Verified Allergy, Intermediate, RASH, 09/30/17) Current Medications Reported Home Medications Medications Dose Route/Sig Max Daily Dose Days Date Category [Renovator] 1 Tab PO DAILY 09/30/17 Reported Multivitamin (Multivitamins) Tab 1 Tab PO DAILY 09/30/17 Reported Miralax (Polyethylene Glycol 3350) 1 Pow Pow 17 Gm PO DAILY PRN 07/04/17 Reported Docusate Sodium 100 Mg Cap 100 Mg PO BID PRN 07/04/17 Reported Apple Cider Vinegar 300 Mg Tab 300 Mg PO DAILY 07/04/17 Reported Magnesium (Magnesium Oxide (Mg Supplement) 250 Mg Tab 250 Mg PO DAILY 07/04/17 Reported Vistaril (Hydroxyzine Pamoate) 25 Mg Cap 25 Mg PO TID PRN 07/04/17 Reported Zoloft (Sertraline HCl) 100 Mg Tab 1.5 Tab PO QAM 07/04/17 Reported Diltiazem Hcl Er (Diltiazem Hcl Coated Beads) 120 Mg Cap 120 Mg PO QAM 10/11/16 Reported Vitamin D (Cholecalciferol) 1,000 Unit Tab 1,000 Unit PO DAILY 10/11/16 Reported Inderal (Propranolol HCl) 20 Mg Tab 20 Mg PO TID PRN 02/08/14 Reported Vital Signs Weight (Kilograms): 81.36 Height (Feet): 5 Height (Inches): 5 Physical Exam General Appearance: WD/WN, no apparent distress Respiratory/Chest: Auscultation: breath sounds normal Cardiovascular: Heart Auscultation: RRR Abdomen: Bowel Sounds: normal Inspection & Palpation: soft, non-distended, no tenderness, guarding & rebound Assessment and Plan Assessment: 52 yo CF who presents for screening colonoscopy. Plan: Proceed with colonoscopy.
--- NOTE | 2017-10-15 10:57 | Discharge Instructions ---
Endoscopy Patient Instructions Date / Procedure(s) Performed Oct 15, 2017. Colonoscopy Allergy Information Coded Allergies: Cephalosporins (Verified Allergy, Severe, DIFFICULTY BREATHING, 10/15/17) Penicillins (Verified Allergy, Intermediate, RASH, 10/15/17) Discharge Date / Findings Oct 15, 2017. Colon polyps Internal hemorrhoids Medication Instructions OK to resume all medications today as prescribed Reported Home Medications Medications Dose Route/Sig Max Daily Dose Days Date Category [Renovator] 1 Tab PO DAILY 09/30/17 Reported Multivitamin (Multivitamins) Tab 1 Tab PO DAILY 09/30/17 Reported Miralax (Polyethylene Glycol 3350) 1 Pow 17 Gm PO DAILY PRN 07/04/17 Reported Docusate Sodium 100 Mg Cap 100 Mg PO BID PRN 07/04/17 Reported Apple Cider Vinegar 300 Mg Tab 300 Mg PO DAILY 07/04/17 Reported Magnesium (Magnesium Oxide (Mg Supplement) 250 Mg Tab 250 Mg PO DAILY 07/04/17 Reported Vistaril (Hydroxyzine Pamoate) 25 Mg Cap 25 Mg PO TID PRN 07/04/17 Reported Zoloft (Sertraline HCl) 100 Mg Tab 1.5 Tab PO QAM 07/04/17 Reported Diltiazem Hcl Er (Diltiazem Hcl Coated Beads) 120 Mg Cap 120 Mg PO QAM 10/11/16 Reported Vitamin D (Cholecalciferol) 1,000 Unit Tab 1,000 Unit PO DAILY 10/11/16 Reported Inderal (Propranolol HCl) 20 Mg Tab 20 Mg PO TID PRN 02/08/14 Reported Provider Instructions Activity Restrictions - No exercising or heavy lifting for 24 hours. - Do not drink alcohol the day of the procedure. - Do not drive a car or operate machinery until the day after the procedure. - Do not make any important decisions or sign important papers in 24 hours after the procedure. Following Day: - Return to full activity which may include returning to work/school. Diet Start your diet with liquids and light foods (jello, soup, juice, toast). Then eat your usual diet if not nauseated. Treatment For Common After Affects For mild abdominal pain, bloating, or excessive gas: - Rest - Eat lightly - Lie on right side Follow-Up Information Follow-up with BLA[facility] as scheduled Anesthesia Information What You Should Know You have had a procedure that required some medicine to reduce anxiety and discomfort. This treatment is called moderate sedation. After receiving the treatment, you may be sleepy, but you will be able to breathe on your own. The effects of the treatment may last for several hours. Follow these instructions along with Activity/Diet recommendations noted above: * Do NOT do anything where dizziness or clumsiness would be dangerous. * Rest quietly at home today, then you can be up and about tomorrow. * Have a responsible person stay with you the rest of today. * You may have had an I.V. today. If so, you may take the dressing off later today. Recommendations Call your doctor if: * Trouble breathing * Continuous vomiting for more than 24 hours * Temperature above 101 degrees * Severe abdominal pain or bloating * Pain not relieved by pain medicine ordered * There is increased drainage or redness from any incision * A large amount of rectal bleeding greater than 2-3 tablespoons. (If you had a polyp/s removed or have hemorrhoids, a small amount of blood - from the rectum is to be expected.) * You have any unanswered questions or concerns. IN THE EVENT OF A SERIOUS EMERGENCY, GO TO THE NEAREST EMERGENCY ROOM Your discharge instructions were prepared by provider Sp Martinez. Patient Instructions Signature Page Shyanne Landaverde Patient (or Guardian) Signature/Date: I have read and understand the instructions given to me by my caregivers. Caregiver/RN/Doctor Signature/Date: The above-named patient and/or guardian has received patient instructions on this date. + Original Patient Signature Page (only) stays with chart. Please make copy for patient.
--- NOTE | 2017-10-15 11:01 | GI REPORT ---
Procedure Date: 10/15/2017 10:26 AM Procedure: Colonoscopy Indications: Screening for colorectal malignant neoplasm Medicines: Monitored Anesthesia Care Complications: No immediate complications. Estimated Blood Loss: Estimated blood loss: none. Procedure: Pre-Anesthesia Assessment: - Prior to the procedure, a History and Physical was performed, and patient medications and allergies were reviewed. The patient's tolerance of previous anesthesia was also reviewed. The risks and benefits of the procedure and the sedation options and risks were discussed with the patient. All questions were answered, and informed consent was obtained. Prior Anticoagulants: The patient has taken no previous anticoagulant or antiplatelet agents. ASA Grade Assessment: II - A patient with mild systemic disease. After reviewing the risks and benefits, the patient was deemed in satisfactory condition to undergo the procedure. After I obtained informed consent, the scope was passed under direct vision. Throughout the procedure, the patient's blood pressure, pulse, and oxygen saturations were monitored continuously. The Scope was introduced through the anus and advanced to the terminal ileum. The colonoscopy was performed without difficulty. The patient tolerated the procedure well. The quality of the bowel preparation was good. The terminal ileum, ileocecal valve, appendiceal orifice, and rectum were photographed. Findings: The perianal and digital rectal examinations were normal. A 3 mm polyp was found in the ascending colon. The polyp was sessile. The polyp was removed with a cold biopsy forceps. Resection and retrieval were complete. A 4 mm polyp was found in the rectum. The polyp was sessile. The polyp was removed with a cold snare. Resection and retrieval were complete. Non-bleeding internal hemorrhoids were found during retroflexion. The hemorrhoids were small. Impression: - One 3 mm polyp in the ascending colon, removed with a cold biopsy forceps. Resected and retrieved. - One 4 mm polyp in the rectum, removed with a cold snare. Resected and retrieved. - Non-bleeding internal hemorrhoids. Recommendation: - Resume previous diet. - Continue present medications. - Repeat colonoscopy for surveillance based on pathology results. - Return to primary care physician as previously scheduled. Sp Martinez, DO 10/15/2017 11:00:29 AM This report has been signed electronically. Note Initiated On: 10/15/2017 10:26 AM I attest to the content of the Intraoperative Record and orders documented therein, exceptions below
--- NOTE | 2017-10-15 11:14 | Anesthesiology Progress Note ---
Anesthesia Post Op Note Date & Time Oct 15, 2017 at 11:14 Vital Signs Pain Intensity: 0 Vital Signs Past 12 Hours Date Time Temp Pulse Resp B/P (MAP) Pulse Ox O2 Delivery O2 Flow Rate FiO2 10/15/17 10:58 58 16 118/56 (76) 98 Room Air 10/15/17 09:34 36.5 70 18 108/66 (80) 96 Room Air Notes Mental Status: alert / awake / arousable, participated in evaluation Pt Amnestic to Procedure: Yes Nausea / Vomiting: adequately controlled Pain: adequately controlled Airway Patency, RR, SpO2: stable & adequate BP & HR: stable & adequate Hydration State: stable & adequate Anesthetic Complications: no major complications apparent
[2017-10-15 11:29] VITALS: BP 105/54; PULSE 92; O2SAT 99
== END | disposition home or self-care (01) ==
LOC: C.GI 09:11
PROVIDERS: ATTEND Internal Medicine
DX: Z12.11 Encounter for screening for malignant neoplasm of colon (principal); D12.2 Benign neoplasm of ascending colon; K62.1 Rectal polyp; K64.8 Other hemorrhoids; Z88.0 Allergy status to penicillin; I10 Essential (primary) hypertension; F32.9 Major depressive disorder, single episode, unspecified; G47.33 Obstructive sleep apnea (adult) (pediatric); F17.200 Nicotine dependence, unspecified, uncomplicated; Z79.899 Other long term (current) drug therapy; Z98.890 Other specified postprocedural states

== ENCOUNTER 2017-11-19 13:06 | Emergency (ER) | payer OTHER ==
[~2017-11-19] VITALS: Ht 165.1 cm; Wt 81.6 kg
[~2017-11-19 13:06] MED LIST changes: -LIDOCAINE HCL 2% 2 ML VIAL (20MG/ML) ONE; -PROPOFOL IV EMULSION 10 MG/ML 20 ML VIAL IV ONE; -SODIUM CHLORIDE 0.9% 500ML 500 ML IV ONE
[2017-11-19 13:11] VITALS: TEMP 37; Ht 165.1 cm; Wt 81.6 kg
--- NOTE | 2017-11-19 13:41 | EMERGENCY ROOM VISIT NOTE ---
History Report prepared by Joss: Carlos Roberts Under the Supervision of: Dr. Connor Tuttle D.O. First contact with patient: 13:16 Chief Complaint: MENTAL HEALTH EVALUATION Stated Complaint: DEPRESSION History of Present Illness The patient is a 52 year old female who presents to the Emergency Room with concerns of her worsening depression and anxiety that she has been dealing with for sometime. The patient admits that she has been struggling with depression for a while, as well as anxiety, stress, memory loss, headaches, loss of appetite, and struggles with her self-worth. The patient states that she calls [facility] and the Crisis Hotline intermittently just so she has people to talk to. She does visit with a therapist commonly, and is currently going through a change as her original therapist is moving. She was also placed in [facility] as an inpatient following her first visit with her Therapist. She feels that her symptoms now are NOT as bad as they were at the time of this inpatient stay. She is currently denying any suicidal thoughts, but she does think about running away sometimes. She is currently living alone and does not have a home, she states that "I am a bum." The family member at bedside notes that she was at an appointment with her Therapist this morning who recommended she come to the emergency department. The patient finished that "sometimes I hate myself, sometimes I think I am ugly" "sometimes I do not care if I am here or not." Source of History: patient Onset: Many years Position: other (Psych) Quality: other (Depression/Anxiety) Associated Symptoms: + headache Note: Negative suicidal Review of Systems See HPI for pertinent positives & negatives. A total of 10 systems reviewed and were otherwise negative. Past Medical & Surgical Medical Problems: (1) ATRIAL FIBRILLATION (2) CARDIAC DYSRHYTHMIA NOS (3) Heart disease (4) LYME DISEASE (5) PANIC DISORDER (6) PAROX ATRIAL TACHYCARDIA (7) SOCIAL PHOBIA Family History Lyme disease Social History Smoking Status: Never Smoker Alcohol Use: none Drug Use: none Marital Status: Housing Status: lives with significant other Occupation Status: employed Current/Historical Medications Scheduled Cholecalciferol (Vitamin D), 1,000 UNIT PO DAILY Diltiazem Hcl Coated Beads (Diltiazem Hcl Er), 120 MG PO QAM Multivitamin (Multivitamin), 1 TAB PO DAILY Sertraline (Zoloft), 150 MG PO QAM Scheduled PRN Docusate Sodium (Docusate Sodium), 100 MG PO BID PRN for Constipation Hydroxyzine Pamoate (Vistaril), 25 MG PO TID PRN for Anxiety Melatonin (Melatonin), 5 MG PO HS PRN for Sleep Propranolol (Inderal), 20 MG PO TID PRN for palpitations Allergies Coded Allergies: Cephalosporins (Verified Allergy, Severe, DIFFICULTY BREATHING, 11/19/17) Penicillins (Verified Allergy, Intermediate, RASH, 11/19/17) Physical Exam Vital Signs Date Time Temp Pulse Resp B/P (MAP) Pulse Ox O2 Delivery O2 Flow Rate FiO2 11/19/17 15:11 78 16 123/76 98 Room Air 11/19/17 13:11 37.0 101 20 129/77 96 Room Air Physical Exam GENERAL: Patient is awake, alert, and in no acute distress. Patient is keeping her eyes closed, responding to questions appropriately. EYES: The conjunctivae are clear. The pupils are round and reactive. EARS, NOSE, MOUTH AND THROAT: The nose is without any evidence of any deformity. Mucous membranes are moist tongue is midline NECK: The neck is nontender and supple. RESPIRATORY: Normal respiratory effort is noted there is no evidence of wheezing rhonchi or rales CARDIOVASCULAR: Regular rate and rhythm noted there no murmurs rubs or gallops normal S1 normal S2 GASTROINTESTINAL: The abdomen is soft. Bowel sounds are present in all quadrants. Abdomen is nontender MUSCULOSKELETAL/EXTREMITIES: There is no evidence of gross deformity full range of motion is noted in the hips and shoulders SKIN: There is no obvious evidence of any rash. There are no petechiae, pallor or cyanosis noted. NEUROLOGIC: Patient is awake alert and oriented x3 strength is symmetric patellar reflexes are 2+ bilaterally PSYCH: Patient's affect was flat, patient was very depressed and hopeless. Currently denying any active suicidal ideation, but thought process is very tangental. Medical Decision & Procedures Laboratory Results 11/19/17 14:07 Red Blood Count 4.58, Mean Corpuscular Volume 93.7, Mean Corpuscular Hemoglobin 32.5, Mean Corpuscular Hemoglobin Concent 34.7, Mean Platelet Volume 8.7, Neutrophils (%) (Auto) 73.2, Lymphocytes (%) (Auto) 18.9, Monocytes (%) (Auto) 6.4, Eosinophils (%) (Auto) 0.9, Basophils (%) (Auto) 0.3, Neutrophils # (Auto) 6.67, Lymphocytes # (Auto) 1.72, Monocytes # (Auto) 0.58, Eosinophils # (Auto) 0.08, Basophils # (Auto) 0.03 11/19/17 14:07 Test 11/19/17 14:01 11/19/17 14:07 Urine Color PINK Urine Appearance SL CLOUDY (CLEAR) Urine pH 5.5 (4.5-7.5) Urine Specific [place] 1.010 (1.000-1.030) Urine Protein TRACE (NEG) Urine Glucose (UA) NEG (NEG) Urine Ketones NEG (NEG) Urine Occult Blood 3+ (NEG) Urine Nitrite NEG (NEG) Urine Bilirubin NEG (NEG) Urine Urobilinogen NEG (NEG) Urine Leukocyte Esterase TRACE (NEG) Urine RBC >30 /hpf (0-4) Urine WBC 5-10 /hpf (0-5) Urine Epithelial Cells >30 /lpf (0-5) Urine Bacteria NEG (NEG) Urine Opiates Screen NEG (NEG) Urine Methadone, Qualitative NEG (NEG) Urine Barbiturates NEG (NEG) Urine Phencyclidine (PCP) Level NEG (NEG) Ur Amphetamine/Methamphetamine NEG (NEG) MDMA (Ecstasy) Screen NEG (NEG) Urine Benzodiazepines Screen NEG (NEG) Urine Cocaine Metabolite NEG (NEG) Urine Marijuana (THC) NEG (NEG) White Blood Count 9.11 K/uL (4.8-10.8) Red Blood Count 4.58 M/uL (4.2-5.4) Hemoglobin 14.9 g/dL (12.0-16.0) Hematocrit 42.9 % (37-47) Mean Corpuscular Volume 93.7 fL (80-100) Mean Corpuscular Hemoglobin 32.5 pg (25-34) Mean Corpuscular Hemoglobin Concent 34.7 g/dl (32-36) Platelet Count 284 K/uL (130-400) Mean Platelet Volume 8.7 fL (7.4-10.4) Neutrophils (%) (Auto) 73.2 % Lymphocytes (%) (Auto) 18.9 % Monocytes (%) (Auto) 6.4 % Eosinophils (%) (Auto) 0.9 % Basophils (%) (Auto) 0.3 % Neutrophils # (Auto) 6.67 K/uL (1.4-6.5) Lymphocytes # (Auto) 1.72 K/uL (1.2-3.4) Monocytes # (Auto) 0.58 K/uL (0.11-0.59) Eosinophils # (Auto) 0.08 K/uL (0-0.5) Basophils # (Auto) 0.03 K/uL (0-0.2) RDW Standard Deviation 43.8 fL (36.4-46.3) RDW Coefficient of Variation 12.7 % (11.5-14.5) Immature Granulocyte % (Auto) 0.3 % Immature Granulocyte # (Auto) 0.03 K/uL (0.00-0.02) Anion Gap 8.0 mmol/L (3-11) Est Creatinine Clear Calc Drug Dose 93.6 ml/min Estimated GFR () 107.0 Estimated GFR (Non- 92.3 BUN/Creatinine Ratio 11.6 (10-20) Calcium Level 8.9 mg/dl (8.5-10.1) Total Bilirubin 1.0 mg/dl (0.2-1) Direct Bilirubin 0.1 mg/dl (0-0.2) Aspartate Amino Transf (AST/SGOT) 14 U/L (15-37) Alanine Aminotransferase (ALT/SGPT) 27 U/L (12-78) Alkaline Phosphatase 58 U/L (45-117) Total Protein 7.5 gm/dl (6.4-8.2) Albumin 3.8 gm/dl (3.4-5.0) Thyroid Stimulating Hormone (TSH) 1.640 uIu/ml (0.300-4.500) Ethyl Alcohol mg/dL < 3.0 mg/dl (0-3) Laboratory results per my review. Medications Administered Medications (Trade) Dose Ordered Sig/Dottie Route Start Time Stop Time Status Last Admin Dose Admin Lorazepam (Ativan Tab) 0.5 mg NOW STAT SL 11/19/17 15:14 11/19/17 15:16 DC 11/19/17 15:14 0.5 MG Acetaminophen (Tylenol Tab) 1,000 mg NOW STAT PO 11/19/17 15:14 11/19/17 15:16 DC 11/19/17 15:14 1,000 MG ED Course 1324: The patient was evaluated in room A8. A complete history and physical examination were performed. 1514: Ordered Tylenol 1000 mg PO, Ativan 0.5 mg SL. 1646: The patient has been accepted to [facility] facility. The patient will be discharged when transport is arranged. Medical Decision Differential diagnosis: Etiologies such as mood disorder, infection, hypoglycemia, electrolyte abnormalities, cardiac sources, intracerebral event, toxicologic, neurologic, as well as others were entertained. Nursing notes reviewed. The patient is a 52-year-old female who presented to emergency department for an evaluation of mental health problems. The patient has very significant depression and anxiety issues. This is started to affect her activities as well as her lifestyle significantly. The patient does have an outpatient therapist. She does take medications. The patient was medically cleared in the emergency department. She was evaluated by the mental health trimming caser. The patient was requesting inpatient treatment. A bed search is currently underway. She was treated with medication for headache as well as treated for anxiety while in the emergency department. She was reevaluated multiple times. The patient was accepted to [facility] for inpatient psychiatric treatment. The 201 form as well as the transfer paperwork was filled out by myself. Medication Reconcilliation Current Medication List: was personally reviewed by me Blood Pressure Screening Patient's blood pressure: Normal blood pressure Impression Primary Impression: Depression Additional Impression: Acute anxiety Scribe Attestation The scribe's documentation has been prepared under my direction and personally reviewed by me in its entirety. I confirm that the note above accurately reflects all work, treatment, procedures, and medical decision making performed by me. Departure Information Dispostion [facility] Acute Care ([facility] ) Referrals Mazin Salguero M.D. (PCP) Patient Instructions My [facility] Problem Qualifiers Primary Impression: Depression Depression Type: unspecified Qualified Codes: F32.9 - Major depressive disorder, single episode, unspecified
[2017-11-19 14:17] LABS: BASO % 0.3 %; BASO ABS # 0.03 K/uL (0-0.2); EOS % 0.9 %; EOS ABS # 0.08 K/uL (0-0.5); HEMATOCRIT 42.9 % (37-47); HEMOGLOBIN 14.9 g/dL (12.0-16.0); IG# 0.03 K/uL (0.00-0.02); LYMPH % 18.9 %; LYMPH ABS # 1.72 K/uL (1.2-3.4); MEAN CELL VOLUME 93.7 fL (80-100); MEAN CORPUSCULAR HEMOGLOBIN 32.5 pg (25-34); MEAN CORPUSCULAR HGB CONC 34.7 g/dl (32-36); MEAN PLATELET VOLUME 8.7 fL (7.4-10.4); MONO % 6.4 %; MONO ABS # 0.58 K/uL (0.11-0.59); NEUT % 73.2 %; NEUT ABS # 6.67 K/uL (1.4-6.5); PLATELET COUNT 284 K/uL (130-400); RED CELL DISTRIBUTION WIDTH CV 12.7 % (11.5-14.5); RED CELL DISTRIBUTION WIDTH SD 43.8 fL (36.4-46.3); WHITE BLOOD COUNT 9.11 K/uL (4.8-10.8)
[2017-11-19] MEDS ORDERED: MELA5TAB19 PO (14:38)
[2017-11-19 14:41] LABS: ALBUMIN 3.8 gm/dl (3.4-5.0); CALCIUM 8.9 mg/dl (8.5-10.1); CREATININE 0.75 mg/dl (0.60-1.20); POTASSIUM 3.5 mmol/L (3.5-5.1)
[2017-11-19 14:54] LABS: TOTAL PROTEIN 7.5 gm/dl (6.4-8.2)
[2017-11-19] MEDS ORDERED: LORAZEPAM 0.5 MG TAB SL STA (15:14)
[2017-11-19] MEDS ORDERED: ACETAMINOPHEN 500 MG TAB PO STA (15:14)
[2017-11-19 18:50] VITALS: BP 127/76; PULSE 75; O2SAT 98
== END 2017-11-19 18:51 ==
LOC: C.EDB 13:08 → C.EDA 18:51
DX: F32.9 Major depressive disorder, single episode, unspecified (principal); F41.9 Anxiety disorder, unspecified; I48.91 Unspecified atrial fibrillation; I51.9 Heart disease, unspecified; Z86.19 Personal history of other infectious and parasitic diseases; F40.10 Social phobia, unspecified; Z79.899 Other long term (current) drug therapy; Z88.0 Allergy status to penicillin; Z88.1 Allergy status to other antibiotic agents

== ENCOUNTER 2017-12-17 13:24 | Emergency (ER) | payer OTHER ==
[~2017-12-17] VITALS: Ht 165.1 cm; Wt 85.6 kg
[~2017-12-17 13:24] MED LIST changes: -APPL300T3 PO; +DILT-213 PO; -DILT120C PO; -MAGN250T8 PO; +MELA5TAB19 PO; -POLY335019 PO; -[UNRECOGNIZED DRUG - OTHER] PO
[2017-12-17 13:31] VITALS: TEMP 36.8; Ht 165.1 cm; Wt 85.6 kg
[2017-12-17] MEDS ORDERED: QUET1TAB34 PO (14:38)
[2017-12-17] MEDS ORDERED: MIRT15TA3 PO (14:38)
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
[2017-12-17 15:19] LABS: HEMATOCRIT 41.1 % (37-47); MEAN CELL VOLUME 94.7 fL (80-100); MEAN CORPUSCULAR HEMOGLOBIN 32.3 pg (25-34); MEAN CORPUSCULAR HGB CONC 34.1 g/dl (32-36); PLATELET COUNT 244 K/uL (130-400); RED CELL DISTRIBUTION WIDTH CV 12.4 % (11.5-14.5); RED CELL DISTRIBUTION WIDTH SD 42.9 fL (36.4-46.3); WHITE BLOOD COUNT 8.08 K/uL (4.8-10.8)
[2017-12-17 15:37] LABS: ALBUMIN 3.6 gm/dl (3.4-5.0); CALCIUM 8.6 mg/dl (8.5-10.1); CREATININE 0.76 mg/dl (0.60-1.20)
--- NOTE | 2017-12-17 18:02 | EMERGENCY ROOM VISIT NOTE ---
History Report prepared by Joss: Mague Erazo Under the Supervision of: Dr. Ge Osullivan M.D. First contact with patient: 13:55 Chief Complaint: OTHER COMPLAINT Stated Complaint: NUMBNESS IN ARMS & LEGS, "NOT FEELING RIGHT" History of Present Illness The patient is a 52 year old female who presents to the Emergency Room with complaints of persistent tingling sensation in both hands since this afternoon. She has a history of chronic intermittent numbness and tingling sensations in her feet and hands for 15 years. She describes the numbness as a fire sensation and she can still feel her hands and feet during the episodes. She notes that at baseline the tingling and fire sensations are in her feet intermittently throughout the day. She notes the sensations begin after she has been sitting for more than 15 minutes at a time. She notes that she often has trouble walking initially and has almost fallen a couple of times due to the symptoms. She has informed her PCP of her symptoms, though she has not informed her PCP of the walking difficulties. She notes that she was driving to the bank today when she began to feel the fire and tingling sensation in her hands, which is abnormal for her. She notes that her hands normally develop a fire and tingling sensation when she goes to sleep. She was concerned regarding the fire and tingling sensations in her hands because they have not resolved. She wants to know why she has been having these issues for several years. She denies following up with a neurologist. She notes that she has trouble catching her breath from time to time, though denies any current shortness of breath. The niece states that the patient seems more down than normal. She has a history of anxiety and depression. She has been on her psychiatric medication for over a year. She denies any numbness or weakness to one side of her body. She denies any problems with her speech or swallowing. She denies any history of neuropathy or MS. She notes that she has a history of stress headaches. She denies any vomiting, diarrhea, fevers, or chest pain. She has a history of arthritis and lung disease. Source of History: patient Onset: this afternoon Position: hand (bilateral) Quality: other (tingling and fire sensation) Timing: other (persistent) Associated Symptoms: + numbness (fire sensation and tingling), No fevers, No chest pain, No SOB, No vomiting, No diarrhea, No weakness (to one side of body) Note: She notes walking difficulties. Review of Systems See HPI for pertinent positives & negatives. A total of 10 systems reviewed and were otherwise negative. Past Medical & Surgical Medical Problems: (1) ATRIAL FIBRILLATION (2) CARDIAC DYSRHYTHMIA NOS (3) Heart disease (4) LYME DISEASE (5) PANIC DISORDER (6) PAROX ATRIAL TACHYCARDIA (7) SOCIAL PHOBIA Family History Lyme disease Social History Smoking Status: Never Smoker Alcohol Use: none Drug Use: none Marital Status: Housing Status: lives with significant other Occupation Status: employed Current/Historical Medications Scheduled Cholecalciferol (Vitamin D), 1,000 UNIT PO DAILY Diltiazem Hcl Coated Beads (Diltiazem Hcl Er), 120 MG PO QAM Mirtazapine (Remeron), 15 MG PO HS Multivitamin (Multivitamin), 1 TAB PO DAILY Quetiapine Fumarate (Seroquel), 100 MG PO HS Sertraline (Zoloft), 150 MG PO QAM Scheduled PRN Docusate Sodium (Docusate Sodium), 100 MG PO BID PRN for Constipation Hydroxyzine Pamoate (Vistaril), 25 MG PO TID PRN for Anxiety Melatonin (Melatonin), 5 MG PO HS PRN for Sleep Propranolol (Inderal), 20 MG PO TID PRN for palpitations Allergies Coded Allergies: Cephalosporins (Verified Allergy, Severe, DIFFICULTY BREATHING, 12/17/17) Penicillins (Verified Allergy, Intermediate, RASH, 12/17/17) Physical Exam Vital Signs Date Time Temp Pulse Resp B/P (MAP) Pulse Ox O2 Delivery O2 Flow Rate FiO2 12/17/17 17:44 70 20 127/84 100 Room Air 12/17/17 15:01 70 20 119/75 98 Room Air 12/17/17 13:31 36.8 99 18 134/86 96 Room Air Physical Exam Constitutional: Vital signs reviewed. Eyes: Pupils are equal round reactive to light. Conjunctiva are noninjected. Binocular diplopia. No monocular diplopia. No change with looking up, down her left or right. No change with distance from her face. ENT: Pharynx is clear without erythema or exudate. Mucous membranes are moist. Neck supple without meningeal signs. Respiratory: Clear to auscultation bilaterally. Breath sounds are equal bilaterally. Cardiovascular: Regular rate and rhythm. No rubs or gallops. GI: Soft, nondistended and nontender. Bowel sounds are present. Musculoskeletal: No peripheral edema. No lower extremity tenderness. Integumentary: No cyanosis. Neurological: The patient is awake and alert. Cranial nerves II-XII are intact. Motor is 5 out of 5 all extremities. Sensation is intact to light touch all extremities. Normal speech. No pronator drift. No limb ataxia. Psychiatric: Normal affect. Medical Decision & Procedures Laboratory Results 12/17/17 15:05 12/17/17 15:05 Test 12/17/17 15:05 Red Blood Count 4.34 M/uL (4.2-5.4) Mean Corpuscular Volume 94.7 fL (80-100) Mean Corpuscular Hemoglobin 32.3 pg (25-34) Mean Corpuscular Hemoglobin Concent 34.1 g/dl (32-36) RDW Standard Deviation 42.9 fL (36.4-46.3) RDW Coefficient of Variation 12.4 % (11.5-14.5) Mean Platelet Volume 9.0 fL (7.4-10.4) Anion Gap 7.0 mmol/L (3-11) Est Creatinine Clear Calc Drug Dose 94.6 ml/min Estimated GFR () 105.3 Estimated GFR (Non- 90.8 BUN/Creatinine Ratio 11.9 (10-20) Calcium Level 8.6 mg/dl (8.5-10.1) Total Bilirubin 0.3 mg/dl (0.2-1) Aspartate Amino Transf (AST/SGOT) 14 U/L (15-37) Alanine Aminotransferase (ALT/SGPT) 18 U/L (12-78) Alkaline Phosphatase 63 U/L (45-117) Total Protein 7.0 gm/dl (6.4-8.2) Albumin 3.6 gm/dl (3.4-5.0) Globulin 3.4 gm/dl (2.5-4.0) Albumin/Globulin Ratio 1.1 (0.9-2) Thyroid Stimulating Hormone (TSH) 1.620 uIu/ml (0.300-4.500) Free Thyroxine 0.61 ng/dl (0.80-1.60) Laboratory results as reviewed by me. ED Course 1443: The patient was evaluated in room A10. A complete history and physical exam was performed. Medical Decision This is a 52-year-old female who presents with paresthesias and double vision. Differential diagnosis includes neuropathy, demyelinating disease, intracranial mass, intracranial hemorrhage, CVA, metabolic derangement. I did perform a limited focused review of portions of the patient's old chart on the electronic medical record. The patient was seen for depression November 19, 2017 and transferred to [facility]. Resident Physician Supervision Note: I did evaluate and examine this patient myself. I did guide management for the patient. I agree with the resident's [Dr. Brink] assessment as discussed. Please see the resident's dictation for further details. I did evaluate the patient as noted above. Patient is presenting with paresthesias which she has had for 15 years. While examining the patient she stated that she developed double vision. She has never had double vision in the past. It does appear to be binocular. IV access was established. The patient was placed on a continuous media monitor. I did order and personally review the patient's 12-lead EKG and chest x-ray as described above. I did order and review the patient's blood work as noted in the electronic medical record. I did order an MRI of the brain as well as MRA of the brain and neck. This is pending at this time. If the results are negative we will consult neurology and dispel as appropriate. Please see the resident's note for further details. Medication Reconcilliation Current Medication List: was personally reviewed by me Blood Pressure Screening Patient's blood pressure: Normal blood pressure Impression Primary Impression: Paresthesias Additional Impression: Diplopia Scribe Attestation The scribe's documentation has been prepared under my direct and personally reviewed by me in its entirety. I confirm that the note above accurately reflects all work, treatment, procedures, and medical decision making performed by me. Departure Information Dispostion Still a Patient Referrals Mazin Salguero M.D. (PCP) Patient Instructions My [facility] Problem Qualifiers
--- NOTE | 2017-12-17 21:11 | DIAGNOSTIC IMAGING REPORT ---
MR ANGIOGRAM OF THE BRAIN CLINICAL HISTORY: Numbness in the hands and feet. COMPARISON STUDY: MRI of the brain performed concurrently on 12/17/2017. TECHNIQUE: 3-D [id number] MR angiography of the intracranial circulation is performed. 3-D tumble views are created and assessed. IV contrast was not administered for this examination. The examination is modestly degraded by motion artifact. FINDINGS: The internal carotid arteries are widely patent bilaterally, as are the anterior and middle cerebral arteries. The vertebrobasilar system and posterior cerebral arteries are widely patent. The vertebral arteries are codominant. There is no aneurysm, high-grade stenosis, or focal vessel cutoff seen throughout the intracranial circulation. The brain parenchyma is normal as visualized. IMPRESSION: Unremarkable MR angiogram of the brain. Electronically signed by: Robbin Boyle M.D. 12/17/2017 9:10 PM Dictated Date/Time: 12/17/2017 9:08 PM
--- NOTE | 2017-12-17 21:30 | DIAGNOSTIC IMAGING REPORT ---
MRI OF THE BRAIN COMBO CLINICAL HISTORY: Numbness in the hands and feet. COMPARISON STUDY: CT of the brain dated 04/11/2011. TECHNIQUE: MRI of the brain was performed utilizing various T1 and T2-weighted sequences in the axial, sagittal, and coronal planes. Contrast-enhanced sequences were acquired following the administration of 8.5 cc of Gadavist. FINDINGS: Brain parenchyma: The brain parenchyma is normal in appearance. There is no hemorrhage or mass effect. There is no restricted diffusion to suggest acute ischemia. No enhancing mass lesion is identified on the postcontrast images. Chirinos-white matter differentiation is preserved. No extra-axial fluid collection is seen. The cerebellar tonsils are normal in configuration. Ventricles, sulci, and cisterns: Normal in configuration. Pituitary and sella: Unremarkable. Intracranial vasculature: Normal flow voids are maintained at the skull base. Orbits: The bony orbits are grossly intact. Orbital contents are normal in appearance. Sinuses and mastoids: There is complete opacification of the left maxillary antrum. A retention cyst is noted in the right maxillary antrum. The remaining paranasal sinuses and the mastoid air cells are clear. Calvarium: Unremarkable. Cervical cord: Partially visualized cervical spinal cord is normal in morphology and signal intensity. IMPRESSION: 1. No acute intracranial abnormality. 2. There is opacification of the left maxillary antrum Electronically signed by: Robbin Boyle M.D. 12/17/2017 9:29 PM Dictated Date/Time: 12/17/2017 9:26 PM
--- NOTE | 2017-12-17 21:36 | DIAGNOSTIC IMAGING REPORT ---
MR ANGIOGRAM OF THE NECK COMBO CLINICAL HISTORY: Numbness of the hands and feet. COMPARISON STUDY: No priors. TECHNIQUE: Axial 3-D [id number] MR angiography of the neck is performed. Subsequently, following the IV administration of 8.5 cc of Gadavist. Coronal MR angiogram of the neck was performed to corroborate the findings. 3-D reformats are created and assessed. All measurements were calculated based on NASCET criteria. FINDINGS: Visualized portions of the thoracic aorta are normal in caliber. The aortic arch demonstrates bovine variant anatomy. The subclavian arteries are widely patent bilaterally. The right common carotid artery is widely patent, as are the right internal and external carotid arteries. The left common carotid artery is widely patent, as are the left internal and external carotid arteries. The vertebral arteries are widely patent. The vertebral arteries are codominant. The visualized intracranial vessels at the skull base appear patent. IMPRESSION: Unremarkable MR angiogram of the neck. Electronically signed by: Robbin Boyle M.D. 12/17/2017 9:35 PM Dictated Date/Time: 12/17/2017 9:33 PM
[2017-12-17 22:36] VITALS: BP 121/83; PULSE 99; O2SAT 96
== END 2017-12-17 22:37 | disposition home or self-care (01) ==
LOC: C.EDB 13:26 → C.EDA 22:37
DX: R20.2 Paresthesia of skin (principal); H53.2 Diplopia; I48.91 Unspecified atrial fibrillation; I51.9 Heart disease, unspecified; F41.0 Panic disorder [episodic paroxysmal anxiety]; F40.10 Social phobia, unspecified; Z86.59 Personal history of other mental and behavioral disorders; Z86.19 Personal history of other infectious and parasitic diseases; Z88.1 Allergy status to other antibiotic agents; Z88.0 Allergy status to penicillin

== ENCOUNTER → 2017-12-21 | Outpatient (CLI) | payer OTHER ==
[~2017-12-21] MED LIST changes: +MIRT15TA3 PO; +QUET1TAB34 PO
[2017-12-21 17:49] LABS: BLOOD UREA NITROGEN 17 mg/dl (7-18); CALCIUM 9.2 mg/dl (8.5-10.1); CARBON DIOXIDE 26 mmol/L (21-32); CREATININE 0.81 mg/dl (0.60-1.20); GLUCOSE 90 mg/dl (70-99); SODIUM 136 mmol/L (136-145)
== END | disposition home or self-care (01) ==
LOC: C.LABPVFM 13:41
PROVIDERS: ATTEND Nurse Practitioner Family
DX: R14.0 Abdominal distension (gaseous) (principal); R19.7 Diarrhea, unspecified; R73.01 Impaired fasting glucose

== ENCOUNTER 2018-01-05 22:33 | Emergency (ER) | payer OTHER ==
[~2018-01-05] VITALS: Ht 165.1 cm; Wt 88.3 kg
[2018-01-05 22:35] VITALS: TEMP 36.7; O2SAT 93; Ht 165.1 cm; Wt 88.3 kg
[2018-01-05] MEDS ORDERED: SODIUM CHLORIDE 0.9% 1000ML 1,000 ML IV ONE (23:15)
[2018-01-05 23:59] LABS: BASO % 0.5 %; BASO ABS # 0.04 K/uL (0-0.2); EOS % 2.9 %; EOS ABS # 0.24 K/uL (0-0.5); HEMATOCRIT 41.2 % (37-47); HEMOGLOBIN 14.2 g/dL (12.0-16.0); IG# 0.04 K/uL (0.00-0.02); LYMPH ABS # 1.99 K/uL (1.2-3.4); MEAN CELL VOLUME 93.8 fL (80-100); MEAN CORPUSCULAR HEMOGLOBIN 32.3 pg (25-34); MEAN CORPUSCULAR HGB CONC 34.5 g/dl (32-36); MEAN PLATELET VOLUME 9.5 fL (7.4-10.4); MONO % 10.9 %; NEUT % 61.2 %; NEUT ABS # 5.08 K/uL (1.4-6.5); PLATELET COUNT 237 K/uL (130-400); RED CELL DISTRIBUTION WIDTH CV 12.8 % (11.5-14.5); RED CELL DISTRIBUTION WIDTH SD 43.7 fL (36.4-46.3); WHITE BLOOD COUNT 8.29 K/uL (4.8-10.8)
[2018-01-06 00:12] LABS: ALBUMIN 3.8 gm/dl (3.4-5.0); CALCIUM 8.6 mg/dl (8.5-10.1); CREATININE 0.74 mg/dl (0.60-1.20); POTASSIUM 3.9 mmol/L (3.5-5.1); TOTAL PROTEIN 7.5 gm/dl (6.4-8.2)
[2018-01-06 01:48] VITALS: BP 110/68; PULSE 78; O2SAT 99
--- NOTE | 2018-01-06 23:05 | EMERGENCY ROOM VISIT NOTE ---
History First contact with patient: 23:14 Chief Complaint: WEAKNESS Stated Complaint: WEAKNESS Nursing Triage Summary: Pt. arrives via ALS transport from home. Pt. states that she has had weakness of arms and legs for years and has history of lymes disease. Pt. reports that she called EMS tonight because her friend received a call from a doctor's office telling her that she needed to go to the hospital because of a lab test being elevated. The patient states she was looking up foods high in Vitamin K for her friend then "I just dropped to the floor." Pt. also with history of anxiety and depression per EMS. Pt. A/O x4 and able to move arms and legs off bed upon arriving to ED. History of Present Illness The patient is a 52 year old female who presents to the Emergency Room with complaints of bilateral leg weakness. Patient states that she was at home trying to help take care of a friend who is getting ready to go to the hospital due to abnormal outpatient labs. The patient herself was looking up foods that were high in vitamin K for her friend, which she states that she began to feel weak in her legs, and had to lay herself on the ground. The patient did not fall and was able to ambulate afterwards. She evidently has a long-standing history of similar symptoms for the past 15 years. The patient has not had fever or chills. She is concerned about her friend who is also being seen by another provider. The patient has a history of mental health disease. She rates her current discomfort a 1/10. Review of Systems More than 10 systems were reviewed and otherwise negative with the exception of history of present illness. Past Medical/Surgical History Medical Problems: (1) ATRIAL FIBRILLATION (2) CARDIAC DYSRHYTHMIA NOS (3) Heart disease (4) LYME DISEASE (5) PANIC DISORDER (6) PAROX ATRIAL TACHYCARDIA (7) SOCIAL PHOBIA Family History Lyme disease Social History Smoking Status: Never Smoker Alcohol Use: none Drug Use: none Marital Status: Housing Status: lives with significant other Occupation Status: employed Current/Historical Medications Scheduled Cholecalciferol (Vitamin D), 1,000 UNIT PO DAILY Diltiazem Hcl Coated Beads (Diltiazem Hcl Er), 120 MG PO QAM Mirtazapine (Remeron), 15 MG PO HS Multivitamin (Multivitamin), 1 TAB PO DAILY Quetiapine Fumarate (Seroquel), 100 MG PO HS Sertraline (Zoloft), 150 MG PO QAM Scheduled PRN Docusate Sodium (Docusate Sodium), 100 MG PO BID PRN for Constipation Hydroxyzine Pamoate (Vistaril), 25 MG PO TID PRN for Anxiety Melatonin (Melatonin), 5 MG PO HS PRN for Sleep Propranolol (Inderal), 20 MG PO TID PRN for palpitations Physical Exam Vital Signs Date Time Temp Pulse Resp B/P (MAP) Pulse Ox O2 Delivery O2 Flow Rate FiO2 01/06/18 01:48 78 18 110/68 99 01/06/18 00:31 124/73 98 Room Air 01/06/18 00:30 70 15 01/06/18 00:01 98/86 01/06/18 00:00 80 17 01/05/18 23:59 111/76 01/05/18 23:57 109/72 01/05/18 23:57 70 16 109/72 95 Room Air 77 118/82 78 111/76 01/05/18 23:31 117/68 01/05/18 23:30 71 18 95 01/05/18 22:44 77 01/05/18 22:35 93 Room Air 01/05/18 22:35 36.7 79 14 105/71 93 Room Air Physical Exam VITALS: Vitals are noted on the nurse's note and reviewed by myself. Vital signs stable. GENERAL: Well-developed, well-nourished, white female, who is in no acute distress and resting comfortably. Patient is cooperative with the examination. HEART: Regular rate and rhythm without murmurs gallops or rubs. LUNGS: Clear to auscultation bilaterally without wheezes, rales or rhonchi. No retractions or accessory muscle use. ABDOMEN: Positive normal bowel sounds x 4. Soft, nontender, without masses or organomegaly. No guarding or rebound tenderness. MUSCULOSKELETAL: No muscle atrophy, erythema, or edema noted. Full range of motion in all extremities. No tenderness to palpation. Normal gait. Strength 5/5 throughout. NEURO: Patient was alert and oriented to person place and time. CN II through XII grossly intact. No focal neurological deficits. Medical Decision & Procedures Laboratory Results 01/05/18 22:52 Red Blood Count 4.39, Mean Corpuscular Volume 93.8, Mean Corpuscular Hemoglobin 32.3, Mean Corpuscular Hemoglobin Concent 34.5, Mean Platelet Volume 9.5, Neutrophils (%) (Auto) 61.2, Lymphocytes (%) (Auto) 24.0, Monocytes (%) (Auto) 10.9, Eosinophils (%) (Auto) 2.9, Basophils (%) (Auto) 0.5, Neutrophils # (Auto ) 5.08, Lymphocytes # (Auto) 1.99, Monocytes # (Auto) 0.90, Eosinophils # (Auto ) 0.24, Basophils # (Auto) 0.04 01/05/18 22:52 Test 01/05/18 22:52 01/05/18 23:26 01/06/18 00:46 White Blood Count 8.29 K/uL (4.8-10.8) Red Blood Count 4.39 M/uL (4.2-5.4) Hemoglobin 14.2 g/dL (12.0-16.0) Hematocrit 41.2 % (37-47) Mean Corpuscular Volume 93.8 fL (80-100) Mean Corpuscular Hemoglobin 32.3 pg (25-34) Mean Corpuscular Hemoglobin Concent 34.5 g/dl (32-36) Platelet Count 237 K/uL (130-400) Mean Platelet Volume 9.5 fL (7.4-10.4) Neutrophils (%) (Auto) 61.2 % Lymphocytes (%) (Auto) 24.0 % Monocytes (%) (Auto) 10.9 % Eosinophils (%) (Auto) 2.9 % Basophils (%) (Auto) 0.5 % Neutrophils # (Auto) 5.08 K/uL (1.4-6.5) Lymphocytes # (Auto) 1.99 K/uL (1.2-3.4) Monocytes # (Auto) 0.90 K/uL (0.11-0.59) Eosinophils # (Auto) 0.24 K/uL (0-0.5) Basophils # (Auto) 0.04 K/uL (0-0.2) RDW Standard Deviation 43.7 fL (36.4-46.3) RDW Coefficient of Variation 12.8 % (11.5-14.5) Immature Granulocyte % (Auto) 0.5 % Immature Granulocyte # (Auto) 0.04 K/uL (0.00-0.02) Anion Gap 6.0 mmol/L (3-11) Est Creatinine Clear Calc Drug Dose 98.7 ml/min Estimated GFR () 108.7 Estimated GFR (Non- 93.8 BUN/Creatinine Ratio 19.0 (10-20) Calcium Level 8.6 mg/dl (8.5-10.1) Magnesium Level 2.4 mg/dl (1.8-2.4) Total Bilirubin 0.3 mg/dl (0.2-1) Aspartate Amino Transf (AST/SGOT) 19 U/L (15-37) Alanine Aminotransferase (ALT/SGPT) 24 U/L (12-78) Alkaline Phosphatase 55 U/L (45-117) Total Protein 7.5 gm/dl (6.4-8.2) Albumin 3.8 gm/dl (3.4-5.0) Globulin 3.7 gm/dl (2.5-4.0) Albumin/Globulin Ratio 1.0 (0.9-2) Chemistry Specimen Hemolysis Lyme Disease IgG Antibody NEG (NEG) Lyme Disease IgM Antibody NEG (NEG) Bedside Troponin I < 0.030 ng/ml (0-0.045) Urine Color YELLOW Urine Appearance CLEAR (CLEAR) Urine pH 7.5 (4.5-7.5) Urine Specific [place] 1.008 (1.000-1.030) Urine Protein NEG (NEG) Urine Glucose (UA) NEG (NEG) Urine Ketones NEG (NEG) Urine Occult Blood NEG (NEG) Urine Nitrite NEG (NEG) Urine Bilirubin NEG (NEG) Urine Urobilinogen NEG (NEG) Urine Leukocyte Esterase NEG (NEG) Medications Administered Medications (Trade) Dose Ordered Sig/Dottie Route Start Time Stop Time Status Last Admin Dose Admin Sodium Chloride 1,000 ml @ 999 mls/hr Q1H1M ONCE IV 01/05/18 23:15 01/06/18 00:15 DC 01/05/18 23:31 999 MLS/HR ED Course Physical exam and history were performed. Nursing notes, EMR, and Medication List were personally reviewed. Patient appears to have reports of weakness in both of her legs that was exacerbated tonight, causing her to lay herself on the ground. On examination the patient appears well and nontoxic. She does not have obvious neurologic deficit. She is able to ambulate and her reflexes are intact. IV access was established and labs are obtained. The patient was hydrated with normal saline. Patient's blood work is as above and was reviewed. She does not have a significantly elevated white blood cell count, gross anemia, bandemia, or significant electrolyte imbalance. Transaminases are not diagnostic. Troponin 1 is negative. Remaining labs are fairly noncontributory. On reevaluation the patient was sleeping very comfortably in her emergency department bed. She continues to be in no acute distress, and is without neurologic deficit. I discussed options of care with the patient, and she does seem well for discharge home. She will need to follow with her primary care physician for ongoing care and evaluation. I do suspect there is some component of mental health to her visit today, and this will need to be followed up by her PCP. She was otherwise invited back to the ER with any new, worsening, or concerning symptoms. The chart was completed utilizing [employer] Speech Voice Recognition Software. Grammatical errors, random word insertions, pronoun errors, and incomplete sentences are an occasional consequence of this system due to software limitations, ambient noise, and hardware issues. Any formal questions or concerns about the content, text, or information contained within the body of this dictation should be directly addressed to the provider for clarification. . Medical Decision Differential diagnosis: Etiologies such as metabolic, infection, hypo/hyperglycemia, electrolyte abnormalities, cardiac sources, intracerebral event, toxicologic, neurologic, as well as others were entertained. Impression Primary Impression: Weakness of both legs Departure Information Dispostion Home / Self-Care Condition GOOD Forms HOME CARE DOCUMENTATION FORM, IMPORTANT VISIT INFORMATION Patient Instructions My [facility] Additional Instructions You were seen and evaluated today on an emergency basis only. This is not a substitute for, or an effort to provide, complete comprehensive medical care. It is not possible to recognize and treat all injuries or illnesses in a single emergency department visit. For this reason it is recommended that you followup with your primary care physician next week for recheck of your condition. You are welcome to return to the emergency department anytime with new, worsening, or concerning symptoms.
== END 2018-01-06 01:48 | disposition home or self-care (01) ==
LOC: EDBD 22:33 → C.EDA 22:34
DX: R53.1 Weakness (principal); I48.91 Unspecified atrial fibrillation; I25.10 Atherosclerotic heart disease of native coronary artery without angina pectoris

== ENCOUNTER → 2018-01-05 | Outpatient (CLI) | payer OTHER | END | disposition home or self-care (01) | LOC: C.LABPVFM 13:26 | PROVIDERS: ATTEND Nurse Practitioner Family | DX: R14.0 Abdominal distension (gaseous) (principal) ==

== ENCOUNTER 2018-02-08 08:25 | Inpatient (IN) | payer OTHER ==
[~2018-02-08] VITALS: Ht 165.1 cm; Wt 88.6 kg
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
[2018-02-08 09:20] LABS: BASO % 0.3 %; BASO ABS # 0.02 K/uL (0-0.2); EOS % 1.8 %; EOS ABS # 0.12 K/uL (0-0.5); HEMATOCRIT 42.5 % (37-47); HEMOGLOBIN 14.6 g/dL (12.0-16.0); IG# 0.02 K/uL (0.00-0.02); LYMPH % 16.4 %; MEAN CELL VOLUME 94.9 fL (80-100); MEAN CORPUSCULAR HEMOGLOBIN 32.6 pg (25-34); MEAN CORPUSCULAR HGB CONC 34.4 g/dl (32-36); MONO % 8.5 %; MONO ABS # 0.57 K/uL (0.11-0.59); NEUT % 72.7 %; NEUT ABS # 4.86 K/uL (1.4-6.5); PLATELET COUNT 222 K/uL (130-400); RED CELL DISTRIBUTION WIDTH SD 45.1 fL (36.4-46.3); WHITE BLOOD COUNT 6.69 K/uL (4.8-10.8)
[2018-02-08] MEDS ORDERED: ALBU18002 INH (09:28)
[2018-02-08] MEDS ORDERED: HYDR-3124 PO (09:28)
[2018-02-08] MEDS ORDERED: NAPR1TAB9 PO (09:28)
[2018-02-08] MEDS ORDERED: GLUC10007 PO (09:28)
[2018-02-08] MEDS ORDERED: CALC-214 PO (09:28)
[2018-02-08] MEDS ORDERED: OMEGCAP2 PO (09:28)
[2018-02-08] MEDS ORDERED: MELA1CAP PO (09:28)
[2018-02-08 09:47] LABS: CALCIUM 8.8 mg/dl (8.5-10.1); CREATININE 0.76 mg/dl (0.60-1.20); POTASSIUM 4.2 mmol/L (3.5-5.1); TOTAL PROTEIN 7.5 gm/dl (6.4-8.2)
[2018-02-08] MEDS ORDERED: ALUMINUM/MAGNESIUM SUSP 30 ML UDC PO PRN (11:30)
[2018-02-08] MEDS ORDERED: GLUCOSAMINE SULFATE 500 MG CAP PO PRN (11:30)
[2018-02-08] MEDS ORDERED: PROPRANOLOL HCL 20 MG TAB PO PRN (11:30)
[2018-02-08] MEDS ORDERED: hydrOXYzine HCL 25 MG TAB PO PRN ×2 (11:30)
[2018-02-08] MEDS ORDERED: NON-FORMULARY MEDICATION (Melatonin 1 MG) PO PRN (11:30)
[2018-02-08] MEDS ORDERED: BISMUTH SUBSALICYLATE PER ML OMNICELL CHARGE PO PRN (11:30)
[2018-02-08] MEDS ORDERED: SODIUM CHLORIDE 0.65% NA SOLN 45 ML (OCEAN) PRN (11:30)
[2018-02-08] MEDS ORDERED: NAPROXEN 250 MG TAB PO PRN (11:30)
[2018-02-08] MEDS ORDERED: ACETAMINOPHEN 325 MG TAB PO PRN (11:30)
[2018-02-08] MEDS ORDERED: MAGNESIUM HYDROXIDE SUSP 30 ML UDC PO PRN (11:30)
[2018-02-08 13:00] VITALS: O2SAT 97
[2018-02-08] MEDS ORDERED: GABA-112 PO (14:04)
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
[2018-02-08 14:46] VITALS: BP 103/69; PULSE 77; TEMP 36.8; BMI 32.5
[2018-02-08 14:50] VITALS: Ht 165.1 cm; Wt 88.6 kg
[2018-02-08] MEDS ORDERED: VENLAFAXINE HCL XR 37.5 MG CAPXR PO ONE (15:00)
[2018-02-08] MEDS ORDERED: ALBUTEROL HFA 8 GM INHALER INH SCH (16:00)
[2018-02-08] MEDS: MIRTAZAPINE TAB 15 MG TAB PO SCH (21:39)
[2018-02-08] MEDS: QUETIAPINE FUMARATE 100 MG TAB PO SCH (21:39)
[2018-02-08] MEDS: GABAPENTIN 100 MG CAP PO SCH (21:39)
[2018-02-09 06:21] VITALS: BP_SYST 107; BP_SYST 111; BP_DIAS 70; BP_DIAS 76; PULSE 82; PULSE 87; TEMP 36.8
[2018-02-09] MEDS: DILTIAZEM HCL 120 MG CAPCR PO SCH (08:29)
[2018-02-09] MEDS: CALCIUM 600MG + VIT D 400 IU TAB PO SCH (08:29)
[2018-02-09] MEDS: VENLAFAXINE HCL XR 75 MG CAPXR PO SCH (08:32)
[2018-02-09] MEDS: GABAPENTIN 100 MG CAP PO SCH ×3 (08:32→21:09)
[2018-02-09] MEDS: MULTIVITAMIN TAB PO SCH (08:32)
[2018-02-09] MEDS: CHOLECALCIFEROL 1000 INTER.UNIT TAB PO SCH (08:33)
[2018-02-09] MEDS: SERTRALINE HCL 100 MG TAB PO SCH (08:33)
[2018-02-09] MEDS: OMEGA-3 (PURIFIED FISH OIL) 1 GM CAP PO SCH (08:33)
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
[2018-02-09 08:51] VITALS: BP 103/64; PULSE 79
[2018-02-09] MEDS ORDERED: SERTRALINE HCL 100 MG TAB PO SCH (09:00)
[2018-02-09] MEDS: MIRTAZAPINE TAB 15 MG TAB PO SCH (21:09)
[2018-02-09] MEDS: QUETIAPINE FUMARATE 100 MG TAB PO SCH (21:10)
[2018-02-10 06:59] VITALS: BP_SYST 107; BP_SYST 117; BP_DIAS 73; BP_DIAS 78; PULSE 84; PULSE 93; TEMP 36.4
[2018-02-10] MEDS: DILTIAZEM HCL 120 MG CAPCR PO SCH (07:29)
[2018-02-10] MEDS: CALCIUM 600MG + VIT D 400 IU TAB PO SCH (07:29)
[2018-02-10] MEDS: VENLAFAXINE HCL XR 75 MG CAPXR PO SCH (07:29)
[2018-02-10] MEDS: SERTRALINE HCL 100 MG TAB PO SCH (07:30)
[2018-02-10] MEDS: MULTIVITAMIN TAB PO SCH (07:30)
[2018-02-10] MEDS: OMEGA-3 (PURIFIED FISH OIL) 1 GM CAP PO SCH (07:30)
[2018-02-10] MEDS: CHOLECALCIFEROL 1000 INTER.UNIT TAB PO SCH (07:30)
[2018-02-10] MEDS: GABAPENTIN 100 MG CAP PO SCH ×3 (07:30→22:23)
--- NOTE | 2018-02-10 10:54 | Psychiatric Progress Notes ---
Progress Note Date of Service February 10, 2018. Interval History 52-year-old female with known depression and anxiety, currently treated at [facility] , admitted with severe depression and suicidality, having attempted to jump from a car last week. Chief Complaint "I still feel anxious.". Subjective Patient was seen & assessed interval progress reviewed with Treatment Team. Nursing reports that additional information was obtained from the patient's sister in law who said that she has observed the patient to be spending money, and being preoccupied with this friend Stanislaw. She confirms that Stanislaw has been banned from family activities. The patient today continues to talk about Stanislaw and wants us to call him to tell him about what meds she's on. When I ask the purpose of the contact, she says that she forgets her meds, and can't tell him what they are. She says that her mood is improved since admission, but is still anxious about managing her life outside of the hospital. She would eventually like to get her own place, renting either an apartment or house with a roommate but isn't sure when she would be able to do that. She talks about her spending, saying that she used to go out to dinner a lot, but then stopped. She said she started crying more and so started to eat out again. She has also been taking others out to dinner as a kindness to some friends who are less fortunate. She feels like she is helping them and paying them back for past kindnesses extended to her. She goes on to say that she recently bought some friends a picnic table, planters and soil as a gift. She said that she realizes she will need to get a job as well if her disability is denied. She is in the process of this currently. In the past she has gone to [employer], and was assisted to become a nurses aid, but says "My body gave out.". 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 She denies any further SI, and denies side effects to meds. Review of Systems Constitutional: No fever, No chills, No sweats, No weight loss, No weakness, No fatigue, No problem reported ENT: No hearing loss, No unusual epistaxis, No nasal symptoms, No sore throat, No tinnitus, No dental problems, No trouble swallowing, No problem reported Respiratory: No cough, No sputum, No wheezing, No shortness of breath, No dyspnea on exertion, No dyspnea at rest, No hemoptysis, No problem reported Cardiovascular: No chest pain, No orthopnea, No PND, No edema, No claudication , No palpitations, No problem reported Abdomen: No pain, No nausea, No vomiting, No diarrhea, No constipation, No GI bleeding, No problem reported Neurologic: No memory loss, No paralysis, No weakness, No numbness/tingling, No vertigo, No balance problems, No problem reported Psychiatric: + depression symptoms (improving) Integumentary: No rash, No itch, No new/changing skin lesions, No color change , No bleeding, No problem reported Sleep Information Total Hours of Sleep: 7.00 Meal Information Percent of Breakfast Consumed: 100 Percent of Lunch Consumed: 100 Percent of Dinner Consumed: 100 Mental Status Exam During interview pt is: alert and oriented, cooperative Appearance: appropriately dressed, appropriately groomed Eye contact is: fair Motor behavior is: steady gait & station, no abnormal motor movements Speech: normal in rate, rhythm & volume Affect: blunted Mood is: depressed Thought process: goal directed Thought content: reality based without delusions Suicidal thought are: denied, Plan: present (cut wrists or jump from a care), Intent: present (attempted to jump from car last week. ) Homicidal thoughts are: denied Hallucinations: denies auditory, denies visual Cognition: attention grossly intact, language grossly intact Intelligence estimated to be: average Insight: impaired Judgement: impaired Impression adjusting well to the structure and support of the milieu. Will continue the cross taper to Effexor by DCing Zoloft and increasing Effexor to 150 mg for tomorrow. Family meeting planned for this afternoon with her daughter. Plan (1) Depression 02/08 - Will taper Zoloft in favor of a trial of Effexor XR. Zoloft decrease to 100 mg. and start Effexor XR 37.5 mg today increasing to 75 mg tomorrow. R/B/A reviewed and accepted including black box warning. - Obtain OP records from current providers and coordinate aftercare - Family meeting if indicated - Assist the patient to explore healthy coping strategies. - Consider the benefit of Psych Rehab - Q 15 min checks for safety - Encourage participation in group and individual counseling 02/10 - DC Zoloft -Increase Effexor to 150 mg. daily - Family meeting with daughter this afternoon. (2) Supraventricular tachycardia 02/08 - Continue home meds including propranolol and ditiazem Discharge / Aftercare Planning Primary Care Physician: Name: [facility] [address] [place] [address] [address] [place] Appointment Notes: as needed [facility] Date of Appointment: Feb 25, 2018 Time of Appointment: 10:00 Therapist: Name: [facility]- Tanisha Conn Date of Appointment: Feb 18, 2018 Time of Appointment: 11:00 Service And Repair Supervisor: Name: n/a Visit Code E&M Code: 44867 Inventory Assets Strengths: Support from daughter and friend Needs: Support from daughter and friend to learn additional healthy coping strategies Risk Factors Assessment : Yes /single/: Yes Health problems: Yes Mental Health Diagnoses: Yes Substance use disorders: No Previous attempt: No Family history of suicide: No Previous psychiatric stay: Yes Smoker: No Protective Factors Assessment Zoroastrianism beliefs: Yes : No Responsible for young children: No Employed: No Stable relationships: Yes Good rapport with provider: Yes Data Vital Signs Last 24 Hrs: Date Time Temp Pulse Resp B/P (MAP) Pulse Ox O2 Delivery O2 Flow Rate FiO2 02/10/18 06:59 36.4 84 16 117/78 93 107/73 Meds Administered Last 24 Hrs: Meds Administered (Past 24Hrs) Medications (Trade) Dose Ordered Sig/Dottie Route Start Time Stop Time Status Last Admin Dose Admin Cholecalciferol (Vitamin D Tab) 1,000 inter.unit DAILY PO 02/09/18 09:00 03/11/18 08:59 02/10/18 07:30 1,000 INTER.UNIT Diltiazem HCl (Cardizem Cd Cap) 120 mg QAM PO 02/09/18 09:00 03/11/18 08:59 02/10/18 07:29 120 MG Mirtazapine (Remeron Tab) 15 mg HS PO 02/08/18 21:00 03/10/18 20:59 02/09/18 21:09 15 MG Multivitamins (Multivitamin Tab) 1 tab DAILY PO 02/09/18 09:00 03/11/18 08:59 02/10/18 07:30 1 TAB Quetiapine Fumarate (seroQUEL TAB) 100 mg HS PO 02/08/18 21:00 03/10/18 20:59 02/09/18 21:10 100 MG Calcium/Vitamin D (Caltrate Plus Tab) 1 tab DAILY PO 02/09/18 09:00 03/11/18 08:59 02/10/18 07:29 1 TAB Fish Oil (Fishs Eddy-3 (Purified Fish Oil) Cap) 1 gm DAILY PO 02/09/18 09:00 03/11/18 08:59 02/10/18 07:30 1 GM Gabapentin (Neurontin Cap) 100 mg TID PO 02/08/18 22:00 03/10/18 21:59 02/10/18 07:30 100 MG Sertraline HCl (Zoloft Tab) 100 mg QAM PO 02/09/18 09:00 02/10/18 10:35 DC 02/10/18 07:30 100 MG Venlafaxine HCl (effeXOR EXTENDED REL CAP) 75 mg QAM PO 02/09/18 09:00 02/10/18 10:35 DC 02/10/18 07:29 75 MG Venlafaxine HCl (effeXOR EXTENDED REL CAP) 37.5 mg 1500 ONCE PO 02/08/18 15:00 02/08/18 15:01 DC 02/08/18 15:25 37.5 MG Lab Results Last 24 Hrs: 02/08/18 09:03 Red Blood Count 4.48, Mean Corpuscular Volume 94.9, Mean Corpuscular Hemoglobin 32.6, Mean Corpuscular Hemoglobin Concent 34.4, Mean Platelet Volume 9.0, Neutrophils (%) (Auto) 72.7, Lymphocytes (%) (Auto) 16.4, Monocytes (%) (Auto) 8.5, Eosinophils (%) (Auto) 1.8, Basophils (%) (Auto) 0.3, Neutrophils # (Auto) 4.86, Lymphocytes # (Auto) 1.10, Monocytes # (Auto) 0.57, Eosinophils # (Auto) 0.12, Basophils # (Auto) 0.02 02/08/18 09:03 Test 02/08/18 08:45 02/08/18 09:03 02/09/18 07:05 Urine Color YELLOW Urine Appearance CLEAR (CLEAR) Urine pH 6.0 (4.5-7.5) Urine Specific [place] 1.008 (1.000-1.030) Urine Protein NEG (NEG) Urine Glucose (UA) NEG (NEG) Urine Ketones NEG (NEG) Urine Occult Blood TRACE (NEG) Urine Nitrite NEG (NEG) Urine Bilirubin NEG (NEG) Urine Urobilinogen NEG (NEG) Urine Leukocyte Esterase NEG (NEG) Urine WBC (Auto) 1-5 /hpf (0-5) Urine RBC (Auto) 0-4 /hpf (0-4) Urine Hyaline Casts (Auto) 0 /lpf (0-5) Urine Epithelial Cells (Auto) 5-10 /lpf (0-5) Urine Bacteria (Auto) NEG (NEG) Urine Synthetic Stimulants see note Urine Opiates Screen NEG (NEG) Urine Methadone, Qualitative NEG (NEG) Urine Barbiturates NEG (NEG) Urine Phencyclidine (PCP) Level NEG (NEG) Ur Amphetamine/Methamphetamine NEG (NEG) MDMA (Ecstasy) Screen NEG (NEG) Urine Benzodiazepines Screen NEG (NEG) Urine Cocaine Metabolite NEG (NEG) Cannabinoids Comment see note Urine Synthetic Cannabinoids NEGATIVE (Negative) Ur Synthetic Cannabinoids Confirm (()) Urine Marijuana (THC) NEG (NEG) White Blood Count 6.69 K/uL (4.8-10.8) Red Blood Count 4.48 M/uL (4.2-5.4) Hemoglobin 14.6 g/dL (12.0-16.0) Hematocrit 42.5 % (37-47) Mean Corpuscular Volume 94.9 fL (80-100) Mean Corpuscular Hemoglobin 32.6 pg (25-34) Mean Corpuscular Hemoglobin Concent 34.4 g/dl (32-36) Platelet Count 222 K/uL (130-400) Mean Platelet Volume 9.0 fL (7.4-10.4) Neutrophils (%) (Auto) 72.7 % Lymphocytes (%) (Auto) 16.4 % Monocytes (%) (Auto) 8.5 % Eosinophils (%) (Auto) 1.8 % Basophils (%) (Auto) 0.3 % Neutrophils # (Auto) 4.86 K/uL (1.4-6.5) Lymphocytes # (Auto) 1.10 K/uL (1.2-3.4) Monocytes # (Auto) 0.57 K/uL (0.11-0.59) Eosinophils # (Auto) 0.12 K/uL (0-0.5) Basophils # (Auto) 0.02 K/uL (0-0.2) RDW Standard Deviation 45.1 fL (36.4-46.3) RDW Coefficient of Variation 13.0 % (11.5-14.5) Immature Granulocyte % (Auto) 0.3 % Immature Granulocyte # (Auto) 0.02 K/uL (0.00-0.02) Anion Gap 5.0 mmol/L (3-11) Est Creatinine Clear Calc Drug Dose 96.3 ml/min Estimated GFR () 105.3 Estimated GFR (Non- 90.8 BUN/Creatinine Ratio 18.6 (10-20) Calcium Level 8.8 mg/dl (8.5-10.1) Total Bilirubin 0.6 mg/dl (0.2-1) Direct Bilirubin 0.1 mg/dl (0-0.2) Aspartate Amino Transf (AST/SGOT) 14 U/L (15-37) Alanine Aminotransferase (ALT/SGPT) 22 U/L (12-78) Alkaline Phosphatase 48 U/L (45-117) Total Protein 7.5 gm/dl (6.4-8.2) Albumin 4.0 gm/dl (3.4-5.0) Thyroid Stimulating Hormone (TSH) 1.400 uIu/ml (0.300-4.500) Salicylates Level < 1.7 mg/dl (2.8-20) Acetaminophen Level < 2 ug/ml (10-30) Ethyl Alcohol mg/dL < 3.0 mg/dl (0-3) Fasting Glucose 96 mg/dl (70-99) Triglycerides Level 94 mg/dl (0-150) Cholesterol Level 249 mg/dl (0-200) HDL Cholesterol 63 mg/dl LDL Cholesterol, Calculated 167 mg/dl VLDL Cholesterol, Calculated 19 mg/dl Cholesterol/HDL Ratio 4.0 Problem Qualifiers (1) Depression: Depression Type: major depressive disorder Major depression recurrence: recurrent Major depression episode severity: severe Psychotic features: without psychotic features
[2018-02-10] MEDS: QUETIAPINE FUMARATE 100 MG TAB PO SCH (22:23)
[2018-02-10] MEDS: MIRTAZAPINE TAB 15 MG TAB PO SCH (22:23)
[2018-02-11 06:36] VITALS: BP_SYST 119; BP_DIAS 77; BP_DIAS 80; PULSE 112; PULSE 98; TEMP 36.6
[2018-02-11] MEDS: CALCIUM 600MG + VIT D 400 IU TAB PO SCH (08:10)
[2018-02-11] MEDS: GABAPENTIN 100 MG CAP PO SCH ×3 (08:11→21:41)
[2018-02-11] MEDS: MULTIVITAMIN TAB PO SCH (08:11)
[2018-02-11] MEDS: CHOLECALCIFEROL 1000 INTER.UNIT TAB PO SCH (08:11)
[2018-02-11] MEDS: DILTIAZEM HCL 120 MG CAPCR PO SCH (08:11)
[2018-02-11] MEDS: OMEGA-3 (PURIFIED FISH OIL) 1 GM CAP PO SCH (08:11)
[2018-02-11] MEDS: VENLAFAXINE HCL XR 150 MG CAPXR PO SCH (08:11)
--- NOTE | 2018-02-11 11:22 | Psychiatric Progress Notes ---
Progress Note Date of Service February 11, 2018. Interval History 52-year-old female with known depression and anxiety, currently treated at [facility] , admitted with severe depression and suicidality, having attempted to jump from a car last week. Chief Complaint "Today is a good day". Subjective Patient was seen & assessed interval progress reviewed with Treatment Team. Staff reports the patient had a phone session with her daughter yesterday. Pt is planning to live with her daughter post-discharge, with additional outpatient supports. Pt was seen today to assess progress since admission. Pt reports feeling like the day has started out well. She states the meeting with her daughter was "good" and that she is feeling better. Pt continues to process concerns about feeling lonely and inquires about ways to help her supports "handle me". Pt continues to participate in group programming regularly and has been finding it beneficial. Pt denies thoughts of SI, but states, "it still scares me - to think about what my life could be". Pt continues to share with this provider her difficulty adjusting from being highly functional to having several inpatient psychiatric admissions. Pt was encouraged to continue this process of wellness, which she is agreeable to. Pt denies onset of new psychiatric concerns today. Review of Systems Psych: denies symptoms other than stated above Constitutional: denied Cardiovascular: denied GI: denied Neurologic: denied Remainder of 10 body systems also reviewed and denied other than noted above. Sleep Information Total Hours of Sleep: 6.25 Meal Information Percent of Breakfast Consumed: 100 Percent of Lunch Consumed: 100 Percent of Dinner Consumed: 75 Mental Status Exam During interview pt is: alert and oriented, cooperative Appearance: appropriately dressed, appropriately groomed Eye contact is: good Motor behavior is: steady gait & station, no abnormal motor movements Speech: normal in rate, rhythm & volume Affect: blunted (overall, but smiling and responsive at times) Mood is: depressed Thought process: goal directed, clear, coherent Thought content: reality based without delusions Suicidal thought are: denied, Plan: present (cut wrists or jump from a care), Intent: present (attempted to jump from car last week. ) Homicidal thoughts are: denied Hallucinations: denies auditory, denies visual Cognition: attention grossly intact, language grossly intact Intelligence estimated to be: average Insight: fair Judgement: fair Impression Pt reports feeling good about the family session with her daughter, continuing to work on putting additional outpatient supports in place. Plan is for her to live with her daughter after discharge. Pt denies side effects or concerns with cross taper to Effexor and is feeling "more energized". Discussed sustaining 150mg dose for a period of time, and outpatient adjustments can be made as necessary. Pt is feeling more comfortable with the idea of discharge, and feels she may be ready to go Wednesday. Reviewed the importance of stability and stringing several good days together prior to discharge to decrease risk of decompensation. Pt requires ongoing inpatient mental health treatment at this time to encourage development and use of health coping skills to manage depression and anxiety, continue to observe for side effects to recent medication changes, and ensuring patient is no longer a risk of harm to self or others. Plan (1) Depression 02/08 - Will taper Zoloft in favor of a trial of Effexor XR. Zoloft decrease to 100 mg. and start Effexor XR 37.5 mg today increasing to 75 mg tomorrow. R/B/A reviewed and accepted including black box warning. - Obtain OP records from current providers and coordinate aftercare - Family meeting if indicated - Assist the patient to explore healthy coping strategies. - Consider the benefit of Psych Rehab - Q 15 min checks for safety - Encourage participation in group and individual counseling 02/10 - DC Zoloft -Increase Effexor to 150 mg. daily - Family meeting with daughter this afternoon. 02/11 - Continue Effexor 150mg daily - Encourage development and use of healthy coping skills (2) Supraventricular tachycardia 02/08 - Continue home meds including propranolol and ditiazem Discharge / Aftercare Planning Primary Care Physician: Name: [address] [place] Appointment Notes: as needed Psychiatrist: [facility] Date of Appointment: Feb 25, 2018 Time of Appointment: 10:00 Appointment Notes: [address] [place] [address] Therapist: Name: LATOYARobb Conn Date of Appointment: Feb 18, 2018 Time of Appointment: 11:00 Appointment Notes: [address] [facility] [place] [address] Maintenance Person: Name: n/a Visit Code E&M Code: 60083 Inventory Assets Strengths: Support from daughter and friend Needs: Support from daughter and friend to learn additional healthy coping strategies Risk Factors Assessment : Yes /single/: Yes Health problems: Yes Mental Health Diagnoses: Yes Substance use disorders: No Previous attempt: No Family history of suicide: No Previous psychiatric stay: Yes Smoker: No Protective Factors Assessment Mosque beliefs: Yes : No Responsible for young children: No Employed: No Stable relationships: Yes Good rapport with provider: Yes Data Vital Signs Last 24 Hrs: Date Time Temp Pulse Resp B/P (MAP) Pulse Ox O2 Delivery O2 Flow Rate FiO2 02/11/18 06:36 36.6 98 18 119/77 112 119/80 Meds Administered Last 24 Hrs: Meds Administered (Past 24Hrs) Medications (Trade) Dose Ordered Sig/Dottie Route Start Time Stop Time Status Last Admin Dose Admin Venlafaxine HCl (effeXOR EXTENDED REL CAP) 150 mg QAM PO 02/11/18 09:00 03/13/18 08:59 02/11/18 08:11 150 MG Problem Qualifiers (1) Depression: Depression Type: major depressive disorder Major depression recurrence: recurrent Major depression episode severity: severe Psychotic features: without psychotic features
[2018-02-11] MEDS: QUETIAPINE FUMARATE 100 MG TAB PO SCH (21:41)
[2018-02-11] MEDS: MIRTAZAPINE TAB 15 MG TAB PO SCH (21:41)
[2018-02-12 07:09] VITALS: BP_SYST 103; BP_SYST 113; BP_DIAS 70; BP_DIAS 74; PULSE 84; PULSE 89; TEMP 36.8
[2018-02-12] MEDS: CALCIUM 600MG + VIT D 400 IU TAB PO SCH (08:47)
[2018-02-12] MEDS: CHOLECALCIFEROL 1000 INTER.UNIT TAB PO SCH (08:48)
[2018-02-12] MEDS: OMEGA-3 (PURIFIED FISH OIL) 1 GM CAP PO SCH (08:48)
[2018-02-12] MEDS: MULTIVITAMIN TAB PO SCH (08:48)
[2018-02-12] MEDS: GABAPENTIN 100 MG CAP PO SCH ×3 (08:48→21:17)
[2018-02-12] MEDS: VENLAFAXINE HCL XR 150 MG CAPXR PO SCH (08:48)
[2018-02-12] MEDS: DILTIAZEM HCL 120 MG CAPCR PO SCH (08:48)
--- NOTE | 2018-02-12 12:52 | Psychiatric Progress Notes ---
Progress Note Date of Service February 12, 2018. Interval History 52-year-old female with known depression and anxiety, currently treated at [facility] , admitted with severe depression and suicidality, having attempted to jump from a car. Chief Complaint "my memory makes all this hard". Subjective Patient was seen & assessed interval progress reviewed with Nursing. more relaxed yesterday following phone meeting with daughter. Was having difficulty safety planning given the holiday weekend. has agreed to attend [facility] for structure following discharge. Review of Systems Psych: denies symptoms other than stated above Constitutional: denied Cardiovascular: denied GI: denied Neurologic: denied Remainder of 10 body systems also reviewed and denied other than noted above. Sleep Information Total Hours of Sleep: 7.50 Meal Information Percent of Breakfast Consumed: 100 Percent of Lunch Consumed: 100 Percent of Dinner Consumed: 100 Mental Status Exam During interview pt is: alert and oriented, cooperative Appearance: appropriately dressed, appropriately groomed Eye contact is: good Motor behavior is: steady gait & station, no abnormal motor movements Speech: normal in rate, rhythm & volume Affect: constricted Mood is: depressed Thought process: goal directed, clear, coherent Thought content: reality based without delusions Suicidal thought are: denied, Plan: denied, Intent: denied Homicidal thoughts are: denied Hallucinations: denies auditory, denies visual Cognition: attention grossly intact, language grossly intact Intelligence estimated to be: average Insight: fair Judgement: fair Impression Patient is encourage to use visual prompts/written materials from her patient handbook Plan (1) Depression 02/08 - Will taper Zoloft in favor of a trial of Effexor XR. Zoloft decrease to 100 mg. and start Effexor XR 37.5 mg today increasing to 75 mg tomorrow. R/B/A reviewed and accepted including black box warning. - Obtain OP records from current providers and coordinate aftercare - Family meeting if indicated - Assist the patient to explore healthy coping strategies. - Consider the benefit of Psych Rehab - Q 15 min checks for safety - Encourage participation in group and individual counseling 02/10 - DC Zoloft -Increase Effexor to 150 mg. daily - Family meeting with daughter this afternoon. 02/11 - Continue Effexor 150mg daily - Encourage development and use of healthy coping skills (2) Supraventricular tachycardia 02/08 - Continue home meds including propranolol and ditiazem Discharge / Aftercare Planning Primary Care Physician: Name: [facility] [address] [place] Appointment Notes: as needed Psychiatrist: [facility] Date of Appointment: Feb 25, 2018 Time of Appointment: 10:00 Appointment Notes: [address] [facility] [place] [address] [facility]rapist: [facility] Date of Appointment: Feb 18, 2018 Time of Appointment: 11:00 Appointment Notes: [address] [facility] [place] [address] Technical Coordinator: Name: n/a Visit Code E&M Code: 63019 Inventory Assets Strengths: Support from daughter and friend Needs: Support from daughter and friend to learn additional healthy coping strategies Risk Factors Assessment : Yes /single/: Yes Health problems: Yes Mental Health Diagnoses: Yes Substance use disorders: No Previous attempt: No Family history of suicide: No Previous psychiatric stay: Yes Smoker: No Protective Factors Assessment Jainism beliefs: Yes : No Responsible for young children: No Employed: No Stable relationships: Yes Good rapport with provider: Yes Data Vital Signs Last 24 Hrs: Date Time Temp Pulse Resp B/P (MAP) Pulse Ox O2 Delivery O2 Flow Rate FiO2 02/12/18 07:09 36.8 89 16 103/70 84 113/74 Meds Administered Last 24 Hrs: Meds Administered (Past 24Hrs) Medications (Trade) Dose Ordered Sig/Dottie Route Start Time Stop Time Status Last Admin Dose Admin Venlafaxine HCl (effeXOR EXTENDED REL CAP) 150 mg QAM PO 02/11/18 09:00 03/13/18 08:59 02/12/18 08:48 150 MG Problem Qualifiers (1) Depression: Depression Type: major depressive disorder Major depression recurrence: recurrent Major depression episode severity: severe Psychotic features: without psychotic features
[2018-02-12] MEDS: MIRTAZAPINE TAB 15 MG TAB PO SCH (21:17)
[2018-02-12] MEDS: QUETIAPINE FUMARATE 100 MG TAB PO SCH (21:17)
[2018-02-13 07:03] VITALS: BP_SYST 103; BP_SYST 106; BP_DIAS 68; BP_DIAS 69; PULSE 81; PULSE 99; TEMP 36.6
[2018-02-13] MEDS: CALCIUM 600MG + VIT D 400 IU TAB PO SCH (08:13)
[2018-02-13] MEDS: VENLAFAXINE HCL XR 150 MG CAPXR PO SCH (08:14)
[2018-02-13] MEDS: OMEGA-3 (PURIFIED FISH OIL) 1 GM CAP PO SCH (08:14)
[2018-02-13] MEDS: DILTIAZEM HCL 120 MG CAPCR PO SCH (08:14)
[2018-02-13] MEDS: GABAPENTIN 100 MG CAP PO SCH ×2 (08:14→13:29)
[2018-02-13] MEDS: MULTIVITAMIN TAB PO SCH (08:14)
[2018-02-13] MEDS: CHOLECALCIFEROL 1000 INTER.UNIT TAB PO SCH (08:15)
[2018-02-13] MEDS ORDERED: EFFSR150 PO (08:49)
--- NOTE | 2018-02-13 08:54 | Discharge Instructions ---
Discharge Information Report Includes Report will include the: Discharge Instructions & Summary Admission Admission Date / Time: February 08, 2018 at 11:21 Reason for Admission: Depression Discharge Discharge Diagnosis / Problem: same Condition at Discharge: Fair Discharge Goals Goal(s): Improve function, Improve disease control Activity Recommendations Activity Limitations: resume your previous activity . Instructions / Follow-Up Instructions / Follow-Up . SPECIAL CARE INSTRUCTIONS: 1. Follow through with your scheduled aftercare appointments. If unable to keep an appointment, please call to reschedule. 2. Take your medication only as prescribed. Medication should not be changed or stopped without the approval of your doctor. In the event of worsening symptoms or concerns about side effects, contact your doctor immediately. 3. Utilize new healthy coping skills, anger management skills, and stress management skills learned during your hospitalization. Journal feelings and process them with a support person. Identify stressors or situations that may result in relapse, deterioration or inappropriate behaviors and develop a plan to deal with those issues. 4. If your coping skills are ineffective and you are in crisis, contact your outpatient providers for direction. If unable to reach your providers, please call the CAN HELP LINE AT or go to the closest Emergency Room. 5. Avoid alcohol and un-prescribed drugs. 6. You have been provided with the Mental Health Advance Directives Pamphlet for your review. AFTERCARE APPOINTMENTS: * Please call your insurance company prior to your scheduled appointment to confirm your aftercare providers are covered. Take your insurance information to your appointments. . Discharge / Aftercare Planning Primary Care Physician: Name: [address] [place] Appointment Notes: as needed [facility]: [facility] Date of Appointment: Feb 25, 2018 Time of Appointment: 10:00 [facility]ment Notes[facility] [address] [facility] [place] [id number] Therapist: Name Of Therapist: MARK Conn Date of Appointment: Feb 18, 2018 Time of Appointment: 11:00 Appointment Comments: [address] [facility] [place] [id number] Motorcycle Maker: Name: n/a . Follow-Up Care Plan for Follow-Up Care: CONTENTS OF TRANSITION OF CARE RECORD WERE REVIEWED WITH THE PATIENT Current Hospital Diet Patient's current hospital diet: Regular Diet Discharge Diet Recommended Diet: Regular Diet Procedures Procedures Performed: No Pending Studies Pending Studies at Discharge: No Medical Emergencies . Who to Call and When: Medical Emergencies: For questions or emergencies related to your hospital stay, please contact the Inpatient Behavioral Health Unit at [phone]. A leadership intern is on-call 12/04 for the Behavioral Health Unit for emergencies At any time you feel your situation is an emergency, you may also call 911 immediately. . Non-Emergent Contact Non-Emergency issues call your: Primary Care Provider Call Non-Emergent contact if: you have any medication questions Advance Directives Existing Advance Directive: No Do You Have an Existing Mental: No Existing Living Will: No Existing Power of Child Center Assistant: No Advance Directives Info Given: To Pt/S.O. Advance Directives Reason: Declines as Mental Health Visit. Discharge Summary Admission HPI Per the Admitting provider: The patient is a 52-year-old woman with depression and anxiety dating back to the . She is currently in treatment with Joy LICEA at [facility] and therapist Tanisha. She indicates that she first became depressed as a child and was depressed off and on until she got her first treatment in 1998. This occurred at a time when she was from her fianc and felt that she could not function. She has poor memory of any medication trials at that time. She was also on our mental health unit here at [facility] in [address] the care of Dr. Maradiaga. Similarly, she was having suicidal ideation at that time. She was treated with trazodone and Celexa. The patient thinks that she remembers doing well on Celexa and thinks that she stopped taking it because she was better but questions her own memory of these events. She started seeing the provider at [facility] a year or more ago and has been on Zoloft at escalating doses. About 1 year ago, she was hospitalized at [facility] for depression and feeling "out of control". More recently, the patient seems to be denying any specific stressors that precipitated the worsening of her mood , however has deteriorated to the point of having suicidal thinking and has made at least one attempt. Apparently she was driving with her friend Stanislaw in his car last week, was wearing a seatbelt, but attempted to open the car door to jump. This upset Stanislaw, and an argument ensued. Yesterday, she was feeling extremely "upset", having thoughts of suicide. She admits that she tried to open the knife drawer to get a knife to cut her wrists, but for some reason the door would not open. She then decided to present to the [facility] for evaluation but admits that she did not tell them she was having suicidal ideation, and was safety planned home to follow-up with her outpatient provider on Wednesday. From the [facility], she proceeded to go to her daughter's where she did tell her about the suicidal thinking and the daughter brought her to the emergency department. The patient admits to severe depression over the course of the last f4 or 5 days. She has also been having suicidal thinking in that time. She reports good sleep however due to her current medications. Her appetite varies and she reports having put on about 25 pounds over an unspecified time, but has started to take some of that weight off. her energy is described as "tired" and describes that her mind races with worry. She describes that her anxiety is chronic but denies panic attacks. She denies auditory or visual hallucinations. She denies self-injurious behaviors other than thoughts to bite her fingers which she has never followed through on. She denies any eating disordered behaviors. When asked about any problems with anger she says yes but will only refer to the recent argument with her friend Stanislaw after she attempted to jump from the car. She denies discrete episodes of euphoric mood, sleeplessness or pleasure seeking behaviors that would be congruent with a bipolar disorder. Hospital Course (1) Depression 02/08 - Will taper Zoloft in favor of a trial of Effexor XR. Zoloft decrease to 100 mg. and start Effexor XR 37.5 mg today increasing to 75 mg tomorrow. R/B/A reviewed and accepted including black box warning. - Obtain OP records from current providers and coordinate aftercare - Family meeting if indicated - Assist the patient to explore healthy coping strategies. - Consider the benefit of Psych Rehab - Q 15 min checks for safety - Encourage participation in group and individual counseling 02/10 - DC Zoloft -Increase Effexor to 150 mg. daily - Family meeting with daughter this afternoon. 5/25 - Continue Effexor 150mg daily - Encourage development and use of healthy coping skills (2) Supraventricular tachycardia 02/08 - Continue home meds including propranolol and ditiazem Risk Factors Assessment : Yes /single/: Yes Health problems: Yes Mental Health Diagnoses: Yes Substance use disorders: No Previous attempt: No Family history of suicide: No Previous psychiatric stay: Yes Smoker: No Protective Factors Assessment Christianity beliefs: Yes : No Responsible for young children: No Employed: No Stable relationships: Yes Good rapport with provider: Yes Day of Discharge Assessment Reviewed safety plan with patient and current supports. She denies issues overnight and is tolerating medication well. She continues to deny SI and has arranged for daughter to pick her up this afternoon. The patient presented as alert and cooperative. The patient was casually dressed and groomed. Eye contact was fair. No psychomotor restlessness or agitation was noted. Speech was normal in rate, rhythm, and volume. Affect was mood congruent. The patients mood appeared euthymic. Thought processes were clear, coherent and goal directed without evidence of loose associations or flight of ideas. Thought content/perception was reality based without delusions. The patient denied suicidal and homicidal ideation. The patient denied hallucinations and did not appear to be responding to internal stimuli. Laboratory Test 02/08/18 08:45 02/08/18 09:03 02/09/18 07:05 Urine Color YELLOW Urine Appearance CLEAR Urine pH 6.0 Urine Specific Valentine 1.008 Urine Protein NEG Urine Glucose (UA) NEG Urine Ketones NEG Urine Occult Blood TRACE Urine Nitrite NEG Urine Bilirubin NEG Urine Urobilinogen NEG Urine Leukocyte Esterase NEG Urine WBC (Auto) 1-5 Urine RBC (Auto) 0-4 Urine Hyaline Casts (Auto) 0 Urine Epithelial Cells (Auto) 5-10 Urine Bacteria (Auto) NEG Urine Synthetic Stimulants see note Urine Opiates Screen NEG Urine Methadone, Qualitative NEG Urine Barbiturates NEG Urine Phencyclidine (PCP) Level NEG Ur Amphetamine/Methamphetamine NEG MDMA (Ecstasy) Screen NEG Urine Benzodiazepines Screen NEG Urine Cocaine Metabolite NEG Cannabinoids Comment see note Urine Synthetic Cannabinoids NEGATIVE Ur Synthetic Cannabinoids Confirm Urine Marijuana (THC) NEG White Blood Count 6.69 Red Blood Count 4.48 Hemoglobin 14.6 Hematocrit 42.5 Mean Corpuscular Volume 94.9 Mean Corpuscular Hemoglobin 32.6 Mean Corpuscular Hemoglobin Concent 34.4 Platelet Count 222 Mean Platelet Volume 9.0 Neutrophils (%) (Auto) 72.7 Lymphocytes (%) (Auto) 16.4 Monocytes (%) (Auto) 8.5 Eosinophils (%) (Auto) 1.8 Basophils (%) (Auto) 0.3 Neutrophils # (Auto) 4.86 Lymphocytes # (Auto) 1.10 Monocytes # (Auto) 0.57 Eosinophils # (Auto) 0.12 Basophils # (Auto) 0.02 RDW Standard Deviation 45.1 RDW Coefficient of Variation 13.0 Immature Granulocyte % (Auto) 0.3 Immature Granulocyte # (Auto) 0.02 Sodium Level 140 Potassium Level 4.2 Chloride Level 110 Carbon Dioxide Level 26 Anion Gap 5.0 Blood Urea Nitrogen 14 Creatinine 0.76 Est Creatinine Clear Calc Drug Dose 96.3 Estimated GFR () 105.3 Estimated GFR (Non- 90.8 BUN/Creatinine Ratio 18.6 Random Glucose 96 Calcium Level 8.8 Total Bilirubin 0.6 Direct Bilirubin 0.1 Aspartate Amino Transferase (AST) 14 Alanine Aminotransferase (ALT) 22 Alkaline Phosphatase 48 Total Protein 7.5 Albumin 4.0 Thyroid Stimulating Hormone (TSH) 1.400 Salicylates Level < 1.7 Acetaminophen Level < 2 Ethyl Alcohol mg/dL < 3.0 Fasting Glucose 96 Triglycerides Level 94 Cholesterol Level 249 HDL Cholesterol 63 LDL Cholesterol, Calculated 167 VLDL Cholesterol, Calculated 19 Cholesterol/HDL Ratio 4.0 Total Time Total Time Spent (min): Greater than 30 minutes Total Time Included: examination of the patient, medication reconciliation Tobacco Cessation at Discharge Smoking Status: Never Smoker FDA approved Prescription: non-smoker Problem Qualifiers (1) Depression: Depression Type: major depressive disorder Major depression recurrence: recurrent Major depression episode severity: severe Psychotic features: without psychotic features
== END 2018-02-13 14:00 | disposition home or self-care (01) | DRG 885 ==
LOC: C.EDB 08:26 → C.MHU 11:21
PROVIDERS: ADMIT Psychiatry & Neurology Psychiatry; ATTEND Psychiatry & Neurology Psychiatry
DX: F33.9 Major depressive disorder, recurrent, unspecified (principal); I47.1 Supraventricular tachycardia; R45.851 Suicidal ideations; F41.9 Anxiety disorder, unspecified; Z79.899 Other long term (current) drug therapy; Z88.0 Allergy status to penicillin; Z88.1 Allergy status to other antibiotic agents; Z81.8 Family history of other mental and behavioral disorders

== ENCOUNTER 2021-08-18 06:58 | Observation (INO) ==
[2021-08-18] MEDS ORDERED: ADENOSINE IV SOLN 3 MG/ML 2 ML VIAL IV STA ×3 (07:23→08:40)
[2021-08-18] MEDS ORDERED: SODIUM CHLORIDE 0.9% 1000ML 1,000 ML IV ONE ×2 (07:23→10:11)
--- NOTE | 2021-08-18 07:26 | Emergency Department Note ---
Impression & Plan Atrial fibrillation with rapid ventricular response, Shortness of breath, Weakness ED Provider Note NAME: TONIA ANDREWS AGE: 55 SEX: F : 1965 ARRIVES VIA: Walk-In INFORMANT: Patient ED PROVIDER(S): Josesito Hernández DO CHIEF COMPLAINT: Chest pain and shortness of breath HPI: Patient is a 55-year-old female who presents to the ER for chest pain, shortness of breath, associated with increased heart rate which started over gi. It has been coming and going intermittently. She notes that she had a for the most part yesterday and persistently this morning. She offers that she does have bad memory and does not remember everything. Denies any belly pain nausea vomiting or diarrhea. No dysuria urgency or frequency. She does feel gaseous. No fevers. She believes that she previously had an ablation but does not remember for what rhythms. ROS: See above HPI for pertinent positives & negatives. A total of 10 systems reviewed and were otherwise negative. PAST MEDICAL HISTORY:See Below PAST SURGICAL HISTORY:See Below FAMILY HISTORY:See Below SOCIAL HISTORY:See Below HOME MEDICATIONS:See Below ALLERGIES:See Below VITALS:See Below PHYSICAL EXAMINATION: GENERAL: Sitting up in bed, alert, well appearing, well nourished, no distress, non-toxic EYE EXAM: normal conjunctiva. OROPHARYNX: no exudate, no erythema, lips, buccal mucosa, and tongue normal and mucous membranes are moist NECK: supple, no nuchal rigidity, no adenopathy, non-tender LUNGS: Clear to auscultation. Normal chest wall mechanics HEART: Tachycardic and irregular regular, S1 normal and S2 normal ABDOMEN: abdomen soft, non-tender, normo-active bowel sounds, no masses, no rebound or guarding. UPPER EXTREMITIES: upper extremities are grossly normal. LOWER EXTREMITIES: No pitting edema. NEURO EXAM: Normal sensorium, cranial nerves II-XII grossly intact, normal speech, no gross weakness of arms, no gross weakness of legs. MEDICAL DECISION MAKING: Patient is a 55-year-old female who presents the ER for increased heart rate. Upon evaluation she is found to be tachycardic with heart rate in the 190s. She was given initially 6 of adenosine and then 2 boluses of 12. She would not break. IV was established but order was obtained and showed no significant leukocytosis or anemia. BMP with a slightly low CO2 at 20. Troponin was negative. She was asymptomatic while in the ER. Chest x-ray shows subtle infiltrates and she does have some upper respiratory symptoms question if this is Covid. She was switched to Lopressor and her heart rate trended down to the 140s but she became a little hypotensive with this. She was given a bolus of f luids. Consulted cardiology as well as the hospitalist for further evaluation. Systolic pressures remained 99 or above for the majority of the time in the ER. She was never really symptomatic and when she sits up. She was not initially cardioverted has her pressures only dropped after the Lopressor and uncertain of when she actually went into this. Triage Nursing notes reviewed. Limited review of prior medical records performed Vital Signs: reviewed and remarkable for tachy Differential diagnosis: Differential diagnoses includes but is not limited to acute coronary syndrome, myocardial infarction, pericarditis, pulmonary embolus, aortic dissection, pneumonia, pneumothorax, musculoskeletal, shingles, esophageal. ER treatment provided: See below Diagnostics interpreted by me: ECG: SVT rate of 181 Normal axis No PVCs T wave flattening with ST depressions in the lateral leads QTC 448 Cardiac Monitoring: An order was placed for continuous cardiac monitoring. The monitor shows a rate of 154 with sinus rhythm. Laboratory studies: As stated above and show below. Imaging studies: Chest x-ray with bilateral infiltrates Consultation(s): Consult Steven Andrea from cardiology Discussed with Clare Galvan from the hospital service Procedures: none Critical Care: I have personally spent 35 minutes of critical care time in the direct management of this patient. This includes bedside care, interpretation of diagnostic studies, and testing, discussion with consultants, patient, and family members, and other required patient management activities. This 35 minutes is in excess of all separately billable procedures. Past Med/Surg History Medical History Abdominal bloating Arthritis Atrial fibrillation (04/06/13) Bronchitis Depression Depression with anxiety Encounter for immunization Encounter for pre-operative examination Encounter for routine gynecological examination Encounter for tubal ligation counseling Generalized anxiety disorder History of Lyme disease Lipid screening Lyme disease (04/06/13) Panic disorder (04/06/13) Seasonal allergies Sleep apnea Stomach problems Urinary problem Surgical History History of cardiac radiofrequency ablation (RFA) Hx of oral surgery Hx of removal of cyst Family History Grandfather (Paternal) Myocardial infarction Grandfather (Maternal) Stroke Other Cancer Diabetes Heart disease No pertinent family history in first degree relatives Ovarian cancer Denies family history of Prostate cancer Breast cancer Colorectal cancer Social History Smoking Status: Never smoker Second Hand Exposure: Yes (social occassions); Hx Alcohol Use: No Hx Substance Use: No (has medical marijuana card, not currently using) Preferred Language: Filipino Communication Ability: Effective Beliefs That Will Affect Care: None marital status: Current Living Situation: Alone and Family Current Living Situation Comment: Lives with daughter and/or father current occupational status: disabled Feels Safe at Home: Yes caffeine: Yes (coffee) Dental Care, Regularly: Yes Physical Activity Frequency: 3-4 Times per Week Seatbelt Use: always Sunscreen Use: Yes Assistive Devices: Cane and Glasses Allergies Allergies Allergy/AdvReac Type Severity Reaction Status Date / Time Cephalosporins Allergy Severe DIFFICULTY Verified 08/18/21 08:56 BREATHING Penicillins Allergy Intermediate RASH Verified 08/18/21 08:56 Home Meds Home Medications Medication Instructions Recorded Confirmed cholecalciferol (vitamin D3) 25 1,000 unit PO QAM cap 02/10/19 08/18/21 mcg (1,000 unit) capsule multivitamin with iron (Daily 1 tab PO QAM 03/11/19 08/18/21 Multiple Vitamins/Iron) omega-3 fatty acids 1,000 mg 1,000 mg PO DAILY PRN 03/11/19 08/18/21 capsule (Fish Oil Concentrate) glucosamine sulfate 2KCl 1,000 mg 1,000 mg PO DAILY tab 09/15/19 08/18/21 tablet Previous Rx's Medication Instructions Recorded hydroxyzine HCl 25 mg tablet 25 mg PO TID PRN #30 tab 03/11/19 melatonin 1 mg tablet 1 mg PO HS PRN #30 tab 03/11/19 propranolol 20 mg tablet 20 mg PO TID PRN #30 tab 03/11/19 ibuprofen 600 mg tablet 600 mg PO Q6H #30 tab 05/19/19 albuterol sulfate 90 mcg/actuation 2 puff INH .q4-6h PRN #8.5 g 05/30/20 aerosol inhaler (ProAir HFA) diltiazem HCl 120 mg 120 mg PO QAM #90 cap 06/02/21 capsule,extended release 24 hr Results & Data (ED) Vital Signs Vital Signs - 24 hr 08/18/21 07:08 08/18/21 08:47 08/18/21 11:31 Temperature 36.0 C L 37 C Temperature Source Oral Oral Pulse Rate 146 H Pulse Rate [Apical] 168 H 153 H Pulse Rhythm Regular Pulse Rhythm [Apical] Regular Regular Pulse Strength Normal Pulse Strength [Apical] Normal Respiratory Rate 20 20 16 Respiratory Effort / Characteristics Non-Labored Spontaneous Non-Labored Spontaneous Respiratory Depth Normal Normal Normal Respiratory Pattern Regular Regular Blood Pressure 105/86 Blood Pressure [Right Arm] 121/73 84/66 L Blood Pressure Mean 92 Blood Pressure Mean [Right Arm] 89 72 Blood Pressure Position Sitting Blood Pressure Position [Right Arm] Lying Pulse Oximetry 98 98 96 Oxygen Delivery Method Room Air Room Air Room Air Sepsis Recent Fever Within 48 Hours No Sepsis New/Unexplained Change in Mental Status No Sepsis Action Taken by Nursing No Action Required Laboratory Data Result diagrams: 08/18/21 07:21 08/18/21 07:21 Lab Results 08/18/21 08/18/21 08/18/21 Range/Units 07:21 07:21 09:07 WBC 10.26 (4.8-10.8) K/uL RBC 4.50 (4.2-5.4) M/uL Hgb 14.2 (12.0-16.0) g/dL Hct 42.1 (37-47) % MCV 93.6 (80-100) fL MCH 31.6 (25-34) pg MCHC 33.7 (32-36) g/dL RDW Std Deviation 45.6 (36.4-46.3) fL RDW Coeff of Chaya 13.4 (11.5-14.5) % Plt Count 404 H (130-400) K/uL MPV 9.6 (7.4-10.4) fL Immature Gran % (Auto) 0.4 % Neut % (Auto) 56.8 % Lymph % (Auto) 30.0 % Nye % (Auto) 10.4 % Eos % (Auto) 1.9 % Baso % (Auto) 0.5 % Neut # (Auto) 5.83 (1.4-6.5) K/uL Lymph # (Auto) 3.08 (1.2-3.4) K/uL Nye # (Auto) 1.07 H (0.11-0.59) K/uL Eos # (Auto) 0.19 (0-0.5) K/uL Baso # (Auto) 0.05 (0-0.2) K/uL Immature Gran # (Auto) 0.04 H (0.00-0.02) K/uL Sodium 141 (136-145) mmol/L Potassium 4.2 (3.5-5.1) mmol/L Chloride 110 H (98-107) mmol/L Carbon Dioxide 20 L (21-32) mmol/L Anion Gap 11.0 (3-11) BUN 15 (7-18) mg/dl Creatinine 0.84 (0.6-1.2) mg/dl Est Cr Clr Drug Dosing 85.6 ml/min Est GFR ( Amer) 91.3 ml/min Est GFR (Non-Af Amer) 78.8 ml/min BUN/Creatinine Ratio 17.5 (10-20) Glucose 111 H (70-99) mg/dl Calcium 8.9 (8.5-10.1) mg/dl Total Bilirubin 0.6 (0.2-1) mg/dl AST 18 (15-37) U/L ALT 23 (12-78) U/L Alkaline Phosphatase 71 (45-117) U/L Troponin I < 0.015 (0-0.045) ng/ml Total Protein 7.2 (6.4-8.2) gm/dl Albumin 3.3 L (3.4-5.0) gm/dl Globulin 3.9 (2.5-4.0) gm/dl Albumin/Globulin Ratio 0.9 (0.9-2) Lipase 109 (73-393) U/L Adenovirus (PCR) (NotDetected) B. pertussis DNA (PCR) (NotDetected) B.parapertussis DNA PCR (NotDetected) C. pneumoniae DNA (PCR) (NotDetected) Coronavirus OC43 (PCR) (NotDetected) Coronavirus HKU1 (PCR) (NotDetected) Coronavirus 229E (PCR) (NotDetected) SARS-CoV-2 (PCR) NEGATIVE (Negative) Coronavirus NL63 (PCR) (NotDetected) Human Metapneumovir PCR (NotDetected) Influenza Type A (PCR) (NotDetected) Influenza Type B (PCR) (NotDetected) M. pneumoniae (PCR) (NotDetected) Parainfluenza 1 (PCR) (NotDetected) Parainfluenza 2 (PCR) (NotDetected) Parainfluenza 3 (PCR) (NotDetected) Parainfluenza 4 (PCR) (NotDetected) RSV (PCR) (NotDetected) Entero/Rhino (PCR) (NotDetected) 08/18/21 Range/Units 09:07 WBC (4.8-10.8) K/uL RBC (4.2-5.4) M/uL Hgb (12.0-16.0) g/dL Hct (37-47) % MCV (80-100) fL MCH (25-34) pg MCHC (32-36) g/dL RDW Std Deviation (36.4-46.3) fL RDW Coeff of Chaya (11.5-14.5) % Plt Count (130-400) K/uL MPV (7.4-10.4) fL Immature Gran % (Auto) % Neut % (Auto) % Lymph % (Auto) % Nye % (Auto) % Eos % (Auto) % Baso % (Auto) % Neut # (Auto) (1.4-6.5) K/uL Lymph # (Auto) (1.2-3.4) K/uL Nye # (Auto) (0.11-0.59) K/uL Eos # (Auto) (0-0.5) K/uL Baso # (Auto) (0-0.2) K/uL Immature Gran # (Auto) (0.00-0.02) K/uL Sodium (136-145) mmol/L Potassium (3.5-5.1) mmol/L Chloride (98-107) mmol/L Carbon Dioxide (21-32) mmol/L Anion Gap (3-11) BUN (7-18) mg/dl Creatinine (0.6-1.2) mg/dl Est Cr Clr Drug Dosing ml/min Est GFR ( Amer) ml/min Est GFR (Non-Af Amer) ml/min BUN/Creatinine Ratio (10-20) Glucose (70-99) mg/dl Calcium (8.5-10.1) mg/dl Total Bilirubin (0.2-1) mg/dl AST (15-37) U/L ALT (12-78) U/L Alkaline Phosphatase (45-117) U/L Troponin I (0-0.045) ng/ml Total Protein (6.4-8.2) gm/dl Albumin (3.4-5.0) gm/dl Globulin (2.5-4.0) gm/dl Albumin/Globulin Ratio (0.9-2) Lipase (73-393) U/L Adenovirus (PCR) Not Detected (NotDetected) B. pertussis DNA (PCR) Not Detected (NotDetected) B.parapertussis DNA PCR Not Detected (NotDetected) C. pneumoniae DNA (PCR) Not Detected (NotDetected) Coronavirus OC43 (PCR) Not Detected (NotDetected) Coronavirus HKU1 (PCR) Not Detected (NotDetected) Coronavirus 229E (PCR) Not Detected (NotDetected) SARS-CoV-2 (PCR) Not Detected (Negative) Coronavirus NL63 (PCR) Not Detected (NotDetected) Human Metapneumovir PCR Not Detected (NotDetected) Influenza Type A (PCR) Not Detected (NotDetected) Influenza Type B (PCR) Not Detected (NotDetected) M. pneumoniae (PCR) Not Detected (NotDetected) Parainfluenza 1 (PCR) Not Detected (NotDetected) Parainfluenza 2 (PCR) Not Detected (NotDetected) Parainfluenza 3 (PCR) Not Detected (NotDetected) Parainfluenza 4 (PCR) Not Detected (NotDetected) RSV (PCR) Not Detected (NotDetected) Entero/Rhino (PCR) Not Detected (NotDetected) Administered Medications Metoprolol Tartrate (Metoprolol Tartrate 1 Mg/Ml Vial) 5 mg IV Q5M PRN PRN Reason: Tachycardia Stop: 09/17/21 09:06 Last Admin: 08/18/21 09:34 Dose: 5 mg Documented by: [id number] Admin: 08/18/21 09:14 Dose: 5 mg Documented by: [id number] Discontinued Medications Adenosine (Adenosine Iv Soln 3 Mg/Ml 2 Ml Vial) 6 mg IV NOW STA Stop: 08/18/21 07:24 Last Admin: 08/18/21 08:32 Dose: 6 mg Documented by: [id number] Adenosine (Adenosine Iv Soln 3 Mg/Ml 2 Ml Vial) 12 mg IV NOW STA Stop: 08/18/21 08:40 Last Admin: 08/18/21 08:41 Dose: 12 mg Documented by: [id number] Adenosine (Adenosine Iv Soln 3 Mg/Ml 2 Ml Vial) 12 mg IV NOW STA Stop: 08/18/21 08:41 Last Admin: 08/18/21 08:41 Dose: 12 mg Documented by: [id number] Sodium Chloride (Nss 1000ml) 1,000 mls @ 999 mls/hr IV .Q1H1M ONE Stop: 08/18/21 08:23 Last Infusion: 08/18/21 11:33 Dose: 0 mls/hr Documented by: [id number] Admin: 08/18/21 08:33 Dose: 999 mls/hr Documented by: [id number] Sodium Chloride (Nss 1000ml) 1,000 mls @ 999 mls/hr IV .Q1H1M ONE Stop: 08/18/21 11:11 Last Admin: 08/18/21 11:34 Dose: 999 mls/hr Documented by: [id number] Imaging Data Radiologist's Impression: Chest X-Ray 08/18/21 07:22 XR chest 1V portable CLINICAL HISTORY: Chest Pain. COMPARISON STUDY: 12/26/2018 TECHNIQUE: 1 view of the chest FINDINGS: Single frontal view of the chest demonstrates the cardiomediastinal silhouette to be within normal limits. Patchy interstitial and alveolar opacities are present particularly at the lung bases bilaterally. The findings are most characteristic of a viral type pneumonitis. Covid 19 pneumonia should be excluded. There is no evidence for pleural effusion. There is no evidence for vascular congestion. There is no acute osseous pathology. IMPRESSION: Patchy interstitial and alveolar opacities are seen particularly at the lung bases bilaterally characteristic of a viral type pneumonitis and probable early Covid 19 pneumonia. ACT 112: Negative or not required by law. Electronically signed by: Keven Zeng M.D. 08/18/2021 8:17 AM Discharge Plan Visit Data Chief Complaint: Respiratory Problems Stated Complaint: BRONCHITIS?,CRACKLING/WHEEZING,TIGHTNESS IN CHEST ED Provider: Josesito Hernández Discharge Problem: Atrial fibrillation with rapid ventricular response, Shortness of breath, Weakness Forms Stand Alone Forms: [facility] [place] [facility] Prescriptions Prescriptions: No Action cholecalciferol (vitamin D3) 1,000 unit capsule 1,000 unit PO QAM RF: 0 omega-3 fatty acids [Fish Oil Concentrate] 1,000 mg capsule 1,000 mg PO DAILY PRN (Reason: NEEDED) RF: 0 multivitamin with iron [Daily Multiple Vitamins/Iron] tablet 1 tab PO QAM RF: 0 hydroxyzine HCl 25 mg tablet 25 mg PO TID PRN (Reason: anxiety) Qty: 30 RF: 0 propranolol 20 mg tablet 20 mg PO TID PRN (Reason: palpitations) Qty: 30 RF: 0 melatonin 1 mg tablet 1 mg PO HS PRN (Reason: sleep) Qty: 30 RF: 0 albuterol sulfate [ProAir HFA] 90 mcg/actuation HFA aerosol inhaler 2 puff INH .q4-6h PRN (Reason: shortness of breath or wheezing) Qty: 8.5 RF: 3 glucosamine sulfate 2KCl 1,000 mg tablet 1,000 mg PO DAILY RF: 0 diltiazem HCl 120 mg capsule,extended release 24hr 120 mg PO QAM Qty: 90 RF: 3 ibuprofen 600 mg tablet 600 mg PO Q6H Qty: 30 RF: 0 Referrals Referrals: Chai Macedo, [Primary Care Provider] -
[2021-08-18 07:49] LABS: Basophils # (auto) 0.05 K/uL (0-0.2); Basophils % (auto) 0.5 %; Eosinophils # (auto) 0.19 K/uL (0-0.5); Eosinophils % (auto) 1.9 %; Hematocrit (blood only) 42.1 % (37-47); Hemoglobin 14.2 g/dL (12.0-16.0); Immature Granulocytes # (auto) 0.04 K/uL (0.00-0.02); Immature Granulocytes % (auto) 0.4 %; Lymphocytes # (auto) 3.08 K/uL (1.2-3.4); Mean Corpuscular Hemoglobin 31.6 pg (25-34); Mean Corpuscular Hgb Conc 33.7 g/dL (32-36); Mean Corpuscular Volume 93.6 fL (80-100); Mean Platelet Volume 9.6 fL (7.4-10.4); Monocytes # (auto) 1.07 K/uL (0.11-0.59); Monocytes % (auto) 10.4 %; Neutrophils # (auto) 5.83 K/uL (1.4-6.5); Neutrophils % (auto) 56.8 %; Platelet Count 404 K/uL (130-400); RDW Coefficient of Variation 13.4 % (11.5-14.5); RDW Standard Deviation 45.6 fL (36.4-46.3); White Blood Count 10.26 K/uL (4.8-10.8)
[2021-08-18 08:06] LABS: Alanine Aminotransferase 23 U/L (12-78); Albumin Level 3.3 gm/dl (3.4-5.0); Aspartate Aminotransferase 18 U/L (15-37); BUN Creatinine Ratio 17.5 (10-20); Blood Urea Nitrogen 15 mg/dl (7-18); Calcium 8.9 mg/dl (8.5-10.1); Carbon Dioxide 20 mmol/L (21-32); Chloride 110 mmol/L (98-107); Creatinine Clr Calc Pharmacy 85.6 ml/min; Est GFR (African American) 91.3 ml/min; Est GFR (Non-African American) 78.8 ml/min; Glucose 111 mg/dl (70-99); Lipase 109 U/L (73-393); Potassium 4.2 mmol/L (3.5-5.1); Sodium 141 mmol/L (136-145)
[2021-08-18 08:11] LABS: Albumin Globulin Ratio 0.9 (0.9-2); Alkaline Phosphatase 71 U/L (45-117); Bilirubin,Total 0.6 mg/dl (0.2-1); Globulin 3.9 gm/dl (2.5-4.0); Total Protein 7.2 gm/dl (6.4-8.2); Troponin I < 0.015 ng/ml (0-0.045)
--- NOTE | 2021-08-18 08:18 | XRay Report ---
XR chest 1V portable CLINICAL HISTORY: Chest Pain. COMPARISON STUDY: 12/26/2018 TECHNIQUE: 1 view of the chest FINDINGS: Single frontal view of the chest demonstrates the cardiomediastinal silhouette to be within normal li mits. Patchy interstitial and alveolar opacities are present particularly at the lung bases bilateral ly. The findings are most characteristic of a viral type pneumonitis. Covid 19 pneumonia should be ex cluded. There is no evidence for pleural effusion. There is no evidence for vascular congestion. Ther e is no acute osseous pathology. IMPRESSION: Patchy interstitial and alveolar opacities are seen particularly at the lung bases bilate rally characteristic of a viral type pneumonitis and probable early Covid 19 pneumonia. ACT 112: Negative or not required by law. Electronically signed by: Keven Zeng M.D. 08/18/2021 8:17 AM
[2021-08-18] MEDS: METOPROLOL TARTRATE 1 MG/ML VIAL IV PRN ×2 (09:14→09:34)
--- NOTE | 2021-08-18 11:41 | History & Physical Report ---
Date of Service August 18, 2021 Assessment & Plan (1) Supraventricular tachycardia: Plan: Patient presented with SVT that was persistent at home for at least 4 days. Came in when she developed ankle edema, shortness of breath and cough likely secondary to pulmonary edema seen on chest x-ray, and significant fatigue SVT was not converting after 4 rounds of adenosine and 2 doses of IV Lopressor, however she did become hypotensive from the Lopressor. She was lightheaded with sitting up in bed and had evidence of pulmonary edema on examination but was not hypoxic. -Admitted to PCU -Cardiology took her to the EP lab after admission and was able to terminate the tachycardia with catheter introduction and pacing -She was to be discharged in the evening after recovery from the procedure, but then she did not feel comfortable driving herself home without further observation overnight -Monitor on telemetry overnight -Follow electrolytes and replete as needed -Continue diltiazem but cardiology increased 180 mg daily -Continue propranolol as needed SVT plus vagal maneuvers after discharge (2) Shortness of breath: Plan: Likely secondary to mild pulmonary edema secondary to SVT as well as the SVT itself Was given 1 dose of IV Lasix Not hypoxic Monitor Likely will not need diuretics on discharge (3) Hyperlipidemia: Plan: Continue omega-3 fatty acid on discharge (4) Anxiety and depression: Plan: Continue hydroxyzine as needed (5) Memory impairment: Plan: Reports she has difficulty with short-term memory since having Lyme disease She is on disability for issues with this plus chronic pain due to arthritis (6) Impaired fasting glucose: Plan: Hemoglobin A1c 5.7% in 2019 Follow with PCP (7) Sleep apnea: Plan: Mild, cannot tolerate CPAP Plan: DVT prophylaxis-SCDs Disposition-admit to PCU History of Present Illness Chief Complaint: Fatigue, rapid heartbeat, chest pressure Primary Care Provider: hCai Macedo, This patient is a 55-year-old female with a history of SVT/AVNRT with ablation in 2013, atrial fibrillation, osteoarthritis, Lyme disease, gluten sensitivity, and perimenopausal symptoms, who presents to the ER with rapid heartbeat that is been ongoing since . She took her as needed propranolol and it improved somewhat the first day but then came back. She finally got to the point where her legs were feeling very heavy, her ankles were starting to swell and she was starting to hear herself wheeze and felt crackly in her chest and had a slight cough She had some chest pressure as well. In the ER, she was found to be in SVT with heart rates in the upper 160s. She was given adenosine x3 and IV Lopressor x2 without converting. Her rate did not slow down at all, but her blood pressure dropped to the 80s systolic and she felt lightheaded. When I saw her, she continued to feel lightheaded even with sitting up in bed. Troponin was negative. I discussed her case with cardiology who came to the ER and attempted to give adenosine again without conversion. She will be admitted for SVT. Cardiology plans on taking her for possible AALIYAH with cardioversion later this afternoon. Allergies Allergy/AdvReac Type Severity Reaction Status Date / Time Cephalosporins Allergy Severe DIFFICULTY Verified 08/18/21 08:56 BREATHING Penicillins Allergy Intermediate RASH Verified 08/18/21 08:56 Home Medications Medication Instructions Recorded Confirmed Type cholecalciferol (vitamin D3) 25 1,000 unit PO QAM cap 02/10/19 08/18/21 History mcg (1,000 unit) capsule hydroxyzine HCl 25 mg tablet 25 mg PO TID PRN #30 tab 03/11/19 08/18/21 Rx melatonin 1 mg tablet 1 mg PO HS PRN #30 tab 03/11/19 08/18/21 Rx multivitamin with iron (Daily 1 tab PO QAM 03/11/19 08/18/21 History Multiple Vitamins/Iron) omega-3 fatty acids 1,000 mg 1,000 mg PO DAILY PRN 03/11/19 08/18/21 History capsule (Fish Oil Concentrate) ibuprofen 600 mg tablet 600 mg PO Q6H #30 tab 05/19/19 08/18/21 Rx glucosamine sulfate 2KCl 1,000 mg 1,000 mg PO DAILY tab 09/15/19 08/18/21 History tablet albuterol sulfate 90 mcg/actuation 2 puff INH .q4-6h PRN #8.5 g 05/30/20 08/18/21 Rx aerosol inhaler (ProAir HFA) diltiazem HCl 180 mg 180 mg PO DAILY #30 cap 08/18/21 Rx capsule,extended release 24 hr, controlled propranolol 20 mg tablet 20 mg PO TID PRN #30 tab 08/18/21 Rx Past Med/Surg History Medical History Abdominal bloating Arthritis Atrial fibrillation (04/06/13) s/p RFA. Still has occasional palpitations, takes Propranolol as needed Bronchitis Depression Depression with anxiety Encounter for immunization Encounter for pre-operative examination Encounter for routine gynecological examination Encounter for tubal ligation counseling Generalized anxiety disorder History of Lyme disease Lipid screening Lyme disease (04/06/13) Panic disorder (04/06/13) Seasonal allergies HAS ALBUTEROL FOR THIS, HAS NOT USED X 3 YEARS Sleep apnea COULD NOT TOLERATE CPAP Stomach problems Urinary problem Surgical History History of cardiac radiofrequency ablation (RFA) Hx of oral surgery Hx of removal of cyst AXILLA AND NECK Family History Grandfather (Paternal) Myocardial infarction Grandfather (Maternal) Stroke Other Cancer Diabetes Heart disease No pertinent family history in first degree relatives Ovarian cancer Denies family history of Prostate cancer Breast cancer Colorectal cancer Social History Smoking Status: Never smoker Second Hand Exposure: Yes (social occassions); Hx Alcohol Use: No Hx Substance Use: No Preferred Language: Faroese Communication Ability: Effective Pmo Consultant Required: No Beliefs That Will Affect Care: None marital status: Current Living Situation: Family Current Living Situation Comment: Lives with daughter and/or father current occupational status: disabled Feels Safe at Home: Yes Safety Concerns: Feels Safe At This Time caffeine: Yes (coffee) Dental Care, Regularly: Yes Physical Activity Frequency: 3-4 Times per Week Seatbelt Use: always Sunscreen Use: Yes Assistive Devices: Cane and Glasses Review of Systems Review of Systems: All systems reviewed & are unremarkable except as noted in HPI & below Physical Exam Constitutional: WD/WN, vitals as above Eyes: PERRL, conjunctivae normal, anicteric sclerae ENMT: external ear and nose normal, oropharynx normal Neck: trachea midline, no thyromegaly Respiratory: normal respiratory effort; no cough Auscultation: + crackles (Bibasilar); no rhonchi and no wheezes Cardiovascular: Rate/Rhythm: regular rhythm and + tachycardic Heart Sounds: no murmur Extremities: + edema (Trace ankle edema bilaterally) Chest (Breasts): Chest: normal inspection of chest Gastrointestinal (Abdomen): normal bowel sounds, soft, nontender, no hepatosplenomegaly Musculoskeletal: Extremities: extremities normal to inspection; no cyanosis and no clubbing Skin: no rashes, warm and dry Neurologic: moves all extremities and awake; no focal motor deficits Psychiatric: A+Ox3, euthymic affect Lymphatic: no lymphedema Results & Data Results & Data ([facility]) Vital Signs (Past 12 Hours) Vital Signs Temp Pulse Pulse Resp BP BP Pulse Ox 08/18/21 11:31 153 H 16 84/66 L 96 08/18/21 08:47 37 C 168 H 20 121/73 98 08/18/21 07:08 36.0 C L 146 H 20 105/86 98 Laboratory Results 08/18/21 08/18/21 08/18/21 Range/Units 09:07 09:07 07:21 WBC (4.8-10.8) K/uL RBC (4.2-5.4) M/uL Hgb (12.0-16.0) g/dL Hct (37-47) % MCV (80-100) fL MCH (25-34) pg MCHC (32-36) g/dL RDW Std Deviation (36.4-46.3) fL RDW Coeff of Chaya (11.5-14.5) % Plt Count (130-400) K/uL MPV (7.4-10.4) fL Immature Gran % (Auto) % Neut % (Auto) % Lymph % (Auto) % [place]ois % (Auto) % Eos % (Auto) % Baso % (Auto) % Neut # (Auto) (1.4-6.5) K/uL Lymph # (Auto) (1.2-3.4) K/uL [place] # (Auto) (0.11-0.59) K/uL Eos # (Auto) (0-0.5) K/uL Baso # (Auto) (0-0.2) K/uL Immature Gran # (Auto) (0.00-0.02) K/uL Sodium 141 (136-145) mmol/L Potassium 4.2 (3.5-5.1) mmol/L Chloride 110 H (98-107) mmol/L Carbon Dioxide 20 L (21-32) mmol/L Anion Gap 11.0 (3-11) BUN 15 (7-18) mg/dl Creatinine 0.84 (0.6-1.2) mg/dl Est Cr Clr Drug Dosing 85.6 ml/min Est GFR ( Amer) 91.3 ml/min Est GFR (Non-Af Amer) 78.8 ml/min BUN/Creatinine Ratio 17.5 (10-20) Glucose 111 H (70-99) mg/dl Calcium 8.9 (8.5-10.1) mg/dl Total Bilirubin 0.6 (0.2-1) mg/dl AST 18 (15-37) U/L ALT 23 (12-78) U/L Alkaline Phosphatase 71 (45-117) U/L Troponin I < 0.015 (0-0.045) ng/ml Total Protein 7.2 (6.4-8.2) gm/dl Albumin 3.3 L (3.4-5.0) gm/dl Globulin 3.9 (2.5-4.0) gm/dl Albumin/Globulin Ratio 0.9 (0.9-2) Lipase 109 (73-393) U/L Adenovirus (PCR) Not Detected (NotDetected) B. pertussis DNA (PCR) Not Detected (NotDetected) B.parapertussis DNA PCR Not Detected (NotDetected) C. pneumoniae DNA (PCR) Not Detected (NotDetected) Coronavirus OC43 (PCR) Not Detected (NotDetected) Coronavirus HKU1 (PCR) Not Detected (NotDetected) Coronavirus 229E (PCR) Not Detected (NotDetected) SARS-CoV-2 (PCR) Not Detected NEGATIVE (Negative) Coronavirus NL63 (PCR) Not Detected (NotDetected) Human Metapneumovir PCR Not Detected (NotDetected) Influenza Type A (PCR) Not Detected (NotDetected) Influenza Type B (PCR) Not Detected (NotDetected) M. pneumoniae (PCR) Not Detected (NotDetected) Parainfluenza 1 (PCR) Not Detected (NotDetected) Parainfluenza 2 (PCR) Not Detected (NotDetected) Parainfluenza 3 (PCR) Not Detected (NotDetected) Parainfluenza 4 (PCR) Not Detected (NotDetected) RSV (PCR) Not Detected (NotDetected) Entero/Rhino (PCR) Not Detected (NotDetected) 08/18/21 Range/Units 07:21 WBC 10.26 (4.8-10.8) K/uL RBC 4.50 (4.2-5.4) M/uL Hgb 14.2 (12.0-16.0) g/dL Hct 42.1 (37-47) % MCV 93.6 (80-100) fL MCH 31.6 (25-34) pg MCHC 33.7 (32-36) g/dL RDW Std Deviation 45.6 (36.4-46.3) fL RDW Coeff of Chaya 13.4 (11.5-14.5) % Plt Count 404 H (130-400) K/uL MPV 9.6 (7.4-10.4) fL Immature Gran % (Auto) 0.4 % Neut % (Auto) 56.8 % Lymph % (Auto) 30.0 % [place]ois % (Auto) 10.4 % Eos % (Auto) 1.9 % Baso % (Auto) 0.5 % Neut # (Auto) 5.83 (1.4-6.5) K/uL Lymph # (Auto) 3.08 (1.2-3.4) K/uL [place] # (Auto) 1.07 H (0.11-0.59) K/uL Eos # (Auto) 0.19 (0-0.5) K/uL Baso # (Auto) 0.05 (0-0.2) K/uL Immature Gran # (Auto) 0.04 H (0.00-0.02) K/uL Sodium (136-145) mmol/L Potassium (3.5-5.1) mmol/L Chloride (98-107) mmol/L Carbon Dioxide (21-32) mmol/L Anion Gap (3-11) BUN (7-18) mg/dl Creatinine (0.6-1.2) mg/dl Est Cr Clr Drug Dosing ml/min Est GFR ( Amer) ml/min Est GFR (Non-Af Amer) ml/min BUN/Creatinine Ratio (10-20) Glucose (70-99) mg/dl Calcium (8.5-10.1) mg/dl Total Bilirubin (0.2-1) mg/dl AST (15-37) U/L ALT (12-78) U/L Alkaline Phosphatase (45-117) U/L Troponin I (0-0.045) ng/ml Total Protein (6.4-8.2) gm/dl Albumin (3.4-5.0) gm/dl Globulin (2.5-4.0) gm/dl Albumin/Globulin Ratio (0.9-2) Lipase (73-393) U/L Adenovirus (PCR) (NotDetected) B. pertussis DNA (PCR) (NotDetected) B.parapertussis DNA PCR (NotDetected) C. pneumoniae DNA (PCR) (NotDetected) Coronavirus OC43 (PCR) (NotDetected) Coronavirus HKU1 (PCR) (NotDetected) Coronavirus 229E (PCR) (NotDetected) SARS-CoV-2 (PCR) (Negative) Coronavirus NL63 (PCR) (NotDetected) Human Metapneumovir PCR (NotDetected) Influenza Type A (PCR) (NotDetected) Influenza Type B (PCR) (NotDetected) M. pneumoniae (PCR) (NotDetected) Parainfluenza 1 (PCR) (NotDetected) Parainfluenza 2 (PCR) (NotDetected) Parainfluenza 3 (PCR) (NotDetected) Parainfluenza 4 (PCR) (NotDetected) RSV (PCR) (NotDetected) Entero/Rhino (PCR) (NotDetected) Diagnostic Findings Chest x-ray image personally reviewed by me-consistent with pulmonary edema Code Status & VTE Plan Code Status Full code VTE Prophylaxis Plan VTE Prophylaxis will be ordered: Yes PG Care Time/CCT Total # of Minutes Spent Total Time Spent with Patient: Total time spent is greater than 50% in coordination of care (as documented) at patient's floor/unit and/or counseling patient: Coding Level of Care Code 41672 Initial Inpt Care Lvl 3 Diagnoses Shortness of breath R06.02 Hyperlipidemia E78.5 Anxiety and depression F41.9; F32.9 Memory impairment R41.3 Supraventricular tachycardia I47.1 Impaired fasting glucose R73.01 Sleep apnea G47.30
[2021-08-18] MEDS ORDERED: ADENOSINE IV SOLN 3 MG/ML 2 ML VIAL IV ONE ×3 (12:40→14:36)
[2021-08-18 12:47] LABS: Adenovirus PCR Not Detected (NotDetected); Bordetella parapertussis PCR Not Detected (NotDetected); Bordetella pertussis PCR Not Detected (NotDetected); Chlamydia pneumoniae PCR Not Detected (NotDetected); Coronavirus 229E PCR Not Detected (NotDetected); Coronavirus CoV-2 (COVID19)PCR Not Detected (NotDetected); Coronavirus HKU1 PCR Not Detected (NotDetected); Coronavirus NL63 PCR Not Detected (NotDetected); Coronavirus OC43PCR Not Detected (NotDetected); Human Metapneumovirus PCR Not Detected (NotDetected); Influenza A PCR Not Detected (NotDetected); Influenza B PCR Not Detected (NotDetected); Mycoplasma pneumoniae PCR Not Detected (NotDetected); Parainfluenza Virus 1 PCR Not Detected (NotDetected); Parainfluenza Virus 2 PCR Not Detected (NotDetected); Parainfluenza Virus 3 PCR Not Detected (NotDetected); Parainfluenza Virus 4 PCR Not Detected (NotDetected); Respiratory Syncytial VirusPCR Not Detected (NotDetected); Rhinovirus/Enterovirus PCR Not Detected (NotDetected)
--- NOTE | 2021-08-18 14:27 | Electrocardiogram Report ---
Test Reason : Blood Pressure : / mmHG Vent. Rate : 181 BPM Atrial Rate : 197 BPM P-R Int : 000 ms QRS Dur : 094 ms QT Int : 258 ms P-R-T Axes : 000 037 236 degrees QTc Int : 448 ms Supraventricular tachycardia Nonspecific ST and T wave abnormality Abnormal ECG When compared with ECG of 26-DEC-2018 22:12, Vent. rate has increased BY [address] now depressed in Lateral leads Nonspecific T wave abnormality, worse in Inferior leads Nonspecific T wave abnormality now evident in Anterolateral leads Confirmed by David Andrea ([id number]) on 08/18/2021 2:27:16 PM Referred By: REFERRED SELF Confirmed By:Daniel Andrea
[2021-08-18] MEDS ORDERED: fentaNYL citrate 100 MCG/2 ML VIAL ONE (14:36)
[2021-08-18] MEDS ORDERED: MIDAZOLAM HCL 5 MG/ML 1 ML VIAL ONE (14:36)
--- NOTE | 2021-08-18 14:37 | Pre Anesthesia Assessment ---
Date of Service August 18, 2021 Pre Sedation Assessment Vital Signs Temp Pulse Pulse Resp BP BP Pulse Ox 08/18/21 14:31 159 H 16 100/76 93 08/18/21 13:35 160 H 17 122/85 95 08/18/21 11:31 153 H 16 84/66 L 96 08/18/21 08:47 37 C 168 H 20 121/73 98 08/18/21 07:08 36.0 C L 146 H 20 105/86 98 Cardiovascular + regular rhythm and + tachycardic Respiratory + respiratory effort normal Pre-Sedation Airway Assessment Smoking Status: Never smoker Hx Sleep Apnea: No Hx Difficult Intubation: No Short, Thick Neck: No Thyromental Distance: > or= 3.5 Finger Breadths Oral Cavity: + WNL Mallampati Class: III ASA: ASA3 NPO Status Date of Last Intake of Fluids: 08/17/21 Date of Last Intake of Solid Food: 08/17/21 Procedure Planning Contraindications for Sedation: none Current Medications Reviewed: Yes Notes The planned sedation has been discussed with the patient. Informed Consent was obtained. I have identified the patient, determined the appropriateness of sedation and have assessed the patient immediately prior to the procedure. All medicine(s) and interventions are by my order.
--- NOTE | 2021-08-18 15:17 | Electrophysiology Report ---
Date of Service August 18, 2021 Electrophysiology Procedure Electrophysiology Procedure Report Procedure performed: Electrophysiologic testing and program stimulation. Ultrasound-guided vascular access Staff electronic assembler: David Andrea MD Indication: The patient is a 55-year-old woman with a history of SVT and prior ablation for AVNRT who presented the emergency room in a narrow complex tachycardia. Attempts at termination with adenosine were not successful. She was brought to the electrophysiology suite for additional diagnostic purposes. Procedure detail: The patient was informed the risks benefits and alternatives to the intended procedure. She understood which proceed. She was taken to the electrophysiology suite where she was placed in the supine position. Conscious sedation was administered per protocol. Patient was monitored electrocardiographically throughout today's procedure. The right internal jugular area was prepped and draped in usual sterile fashion. The right internal jugular vein was subsequently accessed using modified Seldinger t echnique under ultrasound guidance and a sheath was placed over guidewire this site. The sheath was used facilitate passage of an electrophysiologic catheter into the coronary sinus. Patient's rhythm was identified and program stimulation was performed in order to induce the tachycardia. On the elements of the tachycardia were known pacing was employed in order to terminate the arrhythmia. At the conclusion of the case the catheter and sheath were withdrawn. Hemostasis was achieved at the access site using manual pressure. The patient tolerated procedure well. There were no immediate complications. Findings: The patient's tachycardia terminated with catheter introduction. With programmed stimulation from the atrium a tachycardia was induced. The tachycardia cycle length was 358 milliseconds. The VA time was 35 milliseconds. Burst atrial pacing terminated the tachycardia. Impression: Typical AVNRT [facility] Electrophysiology codes EP Procedure 1: Electrophysiology: 63729 Intra-atrial recording Procedure 2: Electrophysiology: [id number] RV recording Procedure 3: Electrophysiology: 98966 Arrhythmia induction Miscellaneous Procedures Procedure 1: EP Miscellaneous: 51039-75 Intracardiac echo add on PG Moderate Sedation Codes Moderate Sedation Codes Procedure 1: Sedation/Anesthesia: 03318 Mod Sedation by the same physician;Init15 Min Child Age 5 & Up
--- NOTE | 2021-08-18 15:17 | Post Anesthesia Assessment ---
Date of Service August 18, 2021 Post Sedation Assessment Vital Signs Temp Pulse Pulse Resp BP BP Pulse Ox 08/18/21 14:31 159 H 16 100/76 93 08/18/21 13:35 160 H 17 122/85 95 08/18/21 11:31 153 H 16 84/66 L 96 08/18/21 08:47 37 C 168 H 20 121/73 98 08/18/21 07:08 36.0 C L 146 H 20 105/86 98 Recovery Score Activity: Moves 4 extremities Respiration: Deep Breath/Cough Circulation: +/-20% PreAnes Value Consciousness: Fully Awake Oxygen Saturation: > 92% On Room Air Discharge Sedation Level of Care: Fast Track Phase II Post Sedation Plan On clinical assessment, the patient appears to have tolerated the sedation without complications. Patient is recovering as anticipated. Patient will continue to be monitored by nursing and may be discharged when sedation discharge criteria are met per below protocol. Upon Completions of procedure up to 15 minutes continue every 5 minute vital signs and the P.A.R. score; then discharge to a Phase I or Fast Track to Phase II per the following guidelines: * Discharge Patient to appropriate Phase II area if PAR is 8 or greater or return to pre- procedure baseline. The post - procedure orders will be as directed. * If PAR score is less than 8 or not return to pre-procedure baseline then patient will follow Phase I monitoring till PAR is reached for Phase II. The Phase I may be done in procedure room or may call to secure a Phase I area. * If naloxone or flumazenil are used for reversal, hold in Phase I for continued monitoring from when last reversal dose was given for a minimum of 60 minutes or longer pending the nurse and/or physician discretion of patient condition before discharge to Phase II. Please call the Sedation Physician to re-evaluate and complete post-note for discharge to Phase II area. Do NOT discharge from procedure sedation or Phase 1 until post- sedation evaluation note is complete by procedure /sedation MD Sedation Discharge Instructions to be given to the patient at discharge to home.
[2021-08-18] MEDS ORDERED: FUROSEMIDE 40 MG/4 ML VIAL IV STA (16:51)
--- NOTE | 2021-08-18 16:56 | Cardiology Consultation ---
Date of Consultation August 18, 2021 Assessment & Plan (1) Supraventricular tachycardia: 1. Supraventricular tachycardia: The patient has a history of AV zan reentrant tachycardia. She underwent slow pathway ablation in 2013. However, she has had some recurrences since that time. Her rhythm today was quite regular and narrow complex. The overall heart rate was somewhat variable. It did not appear to be a typical atrial flutter. However, attempts administering adenosine not successful in terminating the arrhythmia. This may have been due to the peripheral location of her IV. Due to the unknown mechanism of her arrhythmia and a concern over an atypical atrial flutter she was brought to the electrophysiology suite where right internal jugular access was obtained and an EP catheter was advanced into the coronary sinus. This maneuver initially terminated the arrhythmia. Programmed stimulation did induce typical AV node reentrant tachycardia with a short VA time. The patient was subsequently paced out of the arrhythmia. We did discuss options for treatment moving forward. I think the best option is repeat slow pathway modification. We will see about arranging an ablation in the near future. In the interim will advise her to increase her diltiazem to 180 mg daily. I will provide her with a prescription for p.r.n. beta-blockade. She will continue to attempt vagal maneuvers if she has recurrent episodes of tachycardia. History of Present Illness Reason for Consultation: Tachycardia Requesting Physician: Mandy Attending Physician: Clare Galvan MD History of Present Illness The patient is a 55-year-old woman with a history of SVT having previously undergone slow pathway modification in 2013. Since her ablation she has had some recurrent episodes of tachycardia that seemed to be controlled with p.r.n. use of beta-blockade and occasional vagal maneuvers. The episodes are infrequent and generally short-lived. Approximately 4 days ago the patient began to experience symptoms of palpitations and rapid heartbeat. She states that these symptoms were somewhat intermittent in nature but generally sustained over that period of time. She had an element of dyspnea in some mild chest discomfort. She did not report overt dizziness or presyncope. She presented to the emergency room for evaluation. She was discovered to have a supraventricular tachycardia that did not respond to several attempts at adenosine administ ration. In the time I interviewed the patient continued to have some symptoms of tachycardia. She has some element of dyspnea that was fairly mild. She did not describe chest pain. He states she has been maintaining her usual level of activity until the past 4 days. Allergies Allergy/AdvReac Type Severity Reaction Status Date / Time Cephalosporins Allergy Severe DIFFICULTY Verified 08/18/21 08:56 BREATHING Penicillins Allergy Intermediate RASH Verified 08/18/21 08:56 Home Medications Medication Instructions Recorded Confirmed Type cholecalciferol (vitamin D3) 25 1,000 unit PO QAM cap 02/10/19 08/18/21 History mcg (1,000 unit) capsule hydroxyzine HCl 25 mg tablet 25 mg PO TID PRN #30 tab 03/11/19 08/18/21 Rx melatonin 1 mg tablet 1 mg PO HS PRN #30 tab 03/11/19 08/18/21 Rx multivitamin with iron (Daily 1 tab PO QAM 03/11/19 08/18/21 History Multiple Vitamins/Iron) omega-3 fatty acids 1,000 mg 1,000 mg PO DAILY PRN 03/11/19 08/18/21 History capsule (Fish Oil Concentrate) propranolol 20 mg tablet 20 mg PO TID PRN #30 tab 03/11/19 08/18/21 Rx ibuprofen 600 mg tablet 600 mg PO Q6H #30 tab 05/19/19 08/18/21 Rx glucosamine sulfate 2KCl 1,000 mg 1,000 mg PO DAILY tab 09/15/19 08/18/21 History tablet albuterol sulfate 90 mcg/actuation 2 puff INH .q4-6h PRN #8.5 g 05/30/20 08/18/21 Rx aerosol inhaler (ProAir HFA) diltiazem HCl 120 mg 120 mg PO QAM #90 cap 06/02/21 08/18/21 Rx capsule,extended release 24 hr Patient History Medical History Abdominal bloating Arthritis Atrial fibrillation (04/06/13) Bronchitis Depression Depression with anxiety Encounter for immunization Encounter for pre-operative examination Encounter for routine gynecological examination Encounter for tubal ligation counseling Generalized anxiety disorder History of Lyme disease Lipid screening Lyme disease (04/06/13) Panic disorder (04/06/13) Seasonal allergies Sleep apnea Stomach problems Urinary problem Surgical History History of cardiac radiofrequency ablation (RFA) Hx of oral surgery Hx of removal of cyst Family History Grandfather (Paternal) Myocardial infarction Grandfather (Maternal) Stroke Other Cancer Diabetes Heart disease No pertinent family history in first degree relatives Ovarian cancer Denies family history of Prostate cancer Breast cancer Colorectal cancer Social History Smoking Status: Never smoker Second Hand Exposure: Yes (social occassions); Hx Alcohol Use: No Hx Substance Use: No Preferred Language: Finnish Communication Ability: Effective Beliefs That Will Affect Care: None marital status: Current Living Situation: Alone and Family Current Living Situation Comment: Lives with daughter and/or father current occupational status: disabled Feels Safe at Home: Yes caffeine: Yes (coffee) Dental Care, Regularly: Yes Physical Activity Frequency: 3-4 Times per Week Seatbelt Use: always Sunscreen Use: Yes Assistive Devices: Cane and Glasses Review of Systems Review of Systems: Per HPI Physical Exam Physical Exam: She is alert and oriented x3. Mood affect appear normal. She answered all questions appropriately. HEENT: Sclerae are anicteric. Pupils are equal and reactive to light and accommodation. Extraocular movements were intact. Neuro: Cranial nerves intact Lungs: Lungs are clear to auscultation bilaterally. There are no rales wheezes or rhonchi. She has normal respiratory effort without use of accessory muscles. There is normal pulmonary excursion. Cardiac: The rhythm was regular but fast. S1 and S2 were normal. There are no murmurs on examination. The PMI was not markedly displaced on palpation. Abdomen: The abdomen was soft and nontender. Obese Extremities: Patient has bilateral radial pulses that are equal in intensity. There is no evidence cyanosis or clubbing. There was no evidence of significant peripheral edema bilaterally. Skin: There are no rashes noted on examination today. Antecubital ecchymosis. Results & Data ([facility]) Vital Signs (Past 12 Hours) Vital Signs Temp Pulse Pulse Resp BP BP Pulse Ox 08/18/21 15:36 81 16 125/94 91 08/18/21 15:25 84 16 152/90 H 91 08/18/21 14:31 159 H 16 100/76 93 08/18/21 13:35 160 H 17 122/85 95 11/29/21 11:31 153 H 16 84/66 L 96 08/18/21 08:47 37 C 168 H 20 121/73 98 08/18/21 07:08 36.0 C L 146 H 20 105/86 98 Laboratory Results Abnormal Lab Results 08/18/21 08/18/21 08/18/21 07:21 07:21 09:07 WBC 10.26 RBC 4.50 Hgb 14.2 Hct 42.1 MCV 93.6 MCH 31.6 MCHC 33.7 RDW Std Deviation 45.6 RDW Coeff of Chaya 13.4 Plt Count 404 H MPV 9.6 Immature Gran % (Auto) 0.4 Neut % (Auto) 56.8 Lymph % (Auto) 30.0 Bartholomew % (Auto) 10.4 Eos % (Auto) 1.9 Baso % (Auto) 0.5 Neut # (Auto) 5.83 Lymph # (Auto) 3.08 Bartholomew # (Auto) 1.07 H Eos # (Auto) 0.19 Baso # (Auto) 0.05 Immature Gran # (Auto) 0.04 H Sodium 141 Potassium 4.2 Chloride 110 H Carbon Dioxide 20 L Anion Gap 11.0 BUN 15 Creatinine 0.84 Est Cr Clr Drug Dosing 85.6 Est GFR ( Amer) 91.3 Est GFR (Non-Af Amer) 78.8 BUN/Creatinine Ratio 17.5 Glucose 111 H Calcium 8.9 Total Bilirubin 0.6 AST 18 ALT 23 Alkaline Phosphatase 71 Troponin I < 0.015 Total Protein 7.2 Albumin 3.3 L Globulin 3.9 Albumin/Globulin Ratio 0.9 Lipase 109 Adenovirus (PCR) B. pertussis DNA (PCR) B.parapertussis DNA PCR C. pneumoniae DNA (PCR) Coronavirus OC43 (PCR) Coronavirus HKU1 (PCR) Coronavirus 229E (PCR) SARS-CoV-2 (PCR) NEGATIVE Coronavirus NL63 (PCR) Human Metapneumovir PCR Influenza Type A (PCR) Influenza Type B (PCR) M. pneumoniae (PCR) Parainfluenza 1 (PCR) Parainfluenza 2 (PCR) Parainfluenza 3 (PCR) Parainfluenza 4 (PCR) RSV (PCR) Entero/Rhino (PCR) 08/18/21 09:07 WBC RBC Hgb Hct MCV MCH MCHC RDW Std Deviation RDW Coeff of Chaya Plt Count MPV Immature Gran % (Auto) Neut % (Auto) Lymph % (Auto) Bartholomew % (Auto) Eos % (Auto) Baso % (Auto) Neut # (Auto) Lymph # (Auto) Bartholomew # (Auto) Eos # (Auto) Baso # (Auto) Immature Gran # (Auto) Sodium Potassium Chloride Carbon Dioxide Anion Gap BUN Creatinine Est Cr Clr Drug Dosing Est GFR ( Amer) Est GFR (Non-Af Amer) BUN/Creatinine Ratio Glucose Calcium Total Bilirubin AST ALT Alkaline Phosphatase Troponin I Total Protein Albumin Globulin Albumin/Globulin Ratio Lipase Adenovirus (PCR) Not Detected B. pertussis DNA (PCR) Not Detected B.parapertussis DNA PCR Not Detected C. pneumoniae DNA (PCR) Not Detected Coronavirus OC43 (PCR) Not Detected Coronavirus HKU1 (PCR) Not Detected Coronavirus 229E (PCR) Not Detected SARS-CoV-2 (PCR) Not Detected Coronavirus NL63 (PCR) Not Detected Human Metapneumovir PCR Not Detected Influenza Type A (PCR) Not Detected Influenza Type B (PCR) Not Detected M. pneumoniae (PCR) Not Detected Parainfluenza 1 (PCR) Not Detected Parainfluenza 2 (PCR) Not Detected Parainfluenza 3 (PCR) Not Detected Parainfluenza 4 (PCR) Not Detected RSV (PCR) Not Detected Entero/Rhino (PCR) Not Detected Diagnostic Findings The patient did undergo electrophysiologic testing which terminated the arrhythmia. Programmed stimulation did induce typical AV node reentry. PG Care Time/CCT Total # of Minutes Spent Total Time Spent with Patient: Total time spent is greater than 50% in coordination of care (as documented) at patient's floor/unit and/or counseling patient: Coding Level of Care Code 13204 Office/OBS Consult Lvl 4 Diagnoses Supraventricular tachycardia I47.1
--- NOTE | 2021-08-18 17:52 | Discharge Summary ---
Date of Service August 18, 2021 Admission HPI Per Admitting Provider Patient presented with symptoms of tachycardia was discovered to be in SVT. Attempts at termination in the emergency room included administration of adenosine without success. Patient did not have symptoms of significant chest pain but did have some element of dyspnea. Principal Diagnosis Supraventricular tachycardia Discharge Exam She is alert and oriented x3. Mood affect appear normal. She answered all questions appropriately. HEENT: Sclerae are anicteric. Pupils are equal and reactive to light and accom modation. Extraocular movements were intact. Neuro: Cranial nerves intact Lungs: Lungs are clear to auscultation bilaterally. There are no rales wheezes or rhonchi. She has normal respiratory effort without use of accessory muscles. There is normal pulmonary excursion. Cardiac: The rhythm was regular but fast. S1 and S2 were normal. There are no murmurs on examination. The PMI was not markedly displaced on palpation. Abdomen: The abdomen was soft and nontender. Obese Extremities: Patient has bilateral radial pulses that are equal in intensity. There is no evidence cyanosis or clubbing. There was no evidence of significant peripheral edema bilaterally. Skin: There are no rashes noted on examination today. Antecubital ecchymosis. ENMT Mallampati Class: III Respiratory normal respiratory effort Cardiovascular Rate/Rhythm: regular rhythm and + tachycardic Discharge Data Allergies Allergy/AdvReac Type Severity Reaction Status Date / Time Cephalosporins Allergy Severe DIFFICULTY Verified 08/18/21 08:56 BREATHING Penicillins Allergy Intermediate RASH Verified 08/18/21 08:56 Consultations 08/18/21 10:50 ED Decision to Admit Stat 08/18/21 11:40 Consult Cardiology Routine Procedures Performed Operation Date: 08/18/21 14:00 Actual Procedures p EPS with Induction (RA,HIS, RV) - Mau Andrea MD s Ultrasound Vascular Access - Mau Andrea MD Ordered Studies 08/18/21 14:00 EP Lab Images for PACS ONCE Hospital Course (1) Supraventricular tachycardia: 1. Supraventricular tachycardia: The patient has a history of AV zan reentrant tachycardia. She underwent slow pathway ablation in 2013. However, she has had some recurrences since that time. Her rhythm today was quite regular and narrow complex. The overall heart rate was somewhat variable. It did not appear to be a typical atrial flutter. However, attempts administering adenosine not successful in terminating the arrhythmia. This may have been due to the peripheral location of her IV. Due to the unknown mechanism of her arrhythmia and a concern over an atypical atrial flutter she was brought to the electrophysiology suite where right internal jugular access was obtained and an EP catheter was advanced into the coronary sinus. This maneuver initially terminated the arrhythmia. Programmed stimulation did induce typical AV node reentrant tachycardia with a short VA time. The patient was subsequently paced out of the arrhythmia. We did discuss options for treatment moving forward. I think the best option is repeat slow pathway modification. We will see about arranging an ablation in the near future. In the interim will advise her to increase her diltiazem to 18 0 mg daily. I will provide her with a prescription for p.r.n. beta-blockade. She will continue to attempt vagal maneuvers if she has recurrent episodes of tachycardia. Total Time Total Time Spent Total Time Spent (In Minutes): 10 Discharge Plan Discharge Items Patient Disposition: Home - Self-Care Reason For Visit: SVT Discharge Diagnosis: SVT Condition on Discharge: Good Activity: Resume your previous activity Bathing: No limitations Driving/Machine Use: Resume 1 day after discharge Non-emergency contact: Sort Manager Call non-emergency contact if: you have any medication questions and your symptoms worsen Follow-up/Referrals: Chai Macedo DO [Primary Care Provider] - Diet: Regular Addtl Attending Provider Instructions: May remove dressing on neck tomorrow morning. Pending Studies at Discharge: No Stand-Alone Forms: My [employer], Smoking Cessation Medications and DC Order Prescriptions: New diltiazem HCl 180 mg capsule,ext.rel 24h degradable 180 mg PO DAILY Qty: 30 RF: 3 Continued cholecalciferol (vitamin D3) 1,000 unit capsule 1,000 unit PO QAM RF: 0 omega-3 fatty acids [Fish Oil Concentrate] 1,000 mg capsule 1,000 mg PO DAILY PRN (Reason: NEEDED) RF: 0 multivitamin with iron [Daily Multiple Vitamins/Iron] tablet 1 tab PO QAM RF: 0 hydroxyzine HCl 25 mg tablet 25 mg PO TID PRN (Reason: anxiety) Qty: 30 RF: 0 melatonin 1 mg tablet 1 mg PO HS PRN (Reason: sleep) Qty: 30 RF: 0 albuterol sulfate [ProAir HFA] 90 mcg/actuation HFA aerosol inhaler 2 puff INH .q4-6h PRN (Reason: shortness of breath or wheezing) Qty: 8.5 RF: 3 glucosamine sulfate 2KCl 1,000 mg tablet 1,000 mg PO DAILY RF: 0 ibuprofen 600 mg tablet 600 mg PO Q6H Qty: 30 RF: 0 propranolol 20 mg tablet 20 mg PO TID PRN (Reason: palpitations) Qty: 30 RF: 3 Discontinued diltiazem HCl 120 mg capsule,extended release 24hr 120 mg PO QAM Qty: 90 RF: 3 Discharge Orders: Discharge Order (Routine); Ordered 08/18/21 Ordered By: Mau Andrea Admission Data Admit Date/Time: 08/18/21 12:09 Attending Provider: Clare Galvan Admit Provider: Clare Galvan Primary Care Provider: Chai Macedo Other Providers: Clare Galvan ; Mau Andrea Coding Level of Care Code 52676 OBS Care - Discharge Diagnoses Supraventricular tachycardia I47.1
[2021-08-18] MEDS ORDERED: ACETAMINOPHEN 325 MG TAB PO PRN (19:47)
[2021-08-18] MEDS ORDERED: hydrOXYzine HCl 25 MG TAB PO PRN (19:47)
[2021-08-18] MEDS ORDERED: MELATONIN 3 MG TAB PO PRN ×2 (20:29)
[2021-08-19 07:28] LABS: BUN Creatinine Ratio 15.6 (10-20); Calcium 8.1 mg/dl (8.5-10.1); Creatinine Clr Calc Pharmacy 89.6 ml/min; Est GFR (African American) 96.9 ml/min; Est GFR (Non-African American) 83.6 ml/min; Potassium 3.4 mmol/L (3.5-5.1)
[2021-08-19] MEDS ORDERED: FLUARIX QUADRIVALENT 0.5 ML SYR IM ONE (08:00)
[2021-08-19] MEDS ORDERED: dilTIAZem HCL 180 MG CAPCR PO SCH (09:00)
[2021-08-19] MEDS ORDERED: MULTIVITAMIN TAB PO SCH (09:00)
[2021-08-19] MEDS ORDERED: dilTIAZem HCL 120 MG CAPCR PO SCH (09:00)
--- NOTE | 2021-08-19 09:38 | Discharge Summary ---
Date of Service August 19, 2021 Admission HPI Per Admitting Provider This patient is a 55-year-old female with a history of SVT/AVNRT with ablation in 2013, atrial fibrillation, osteoarthritis, Lyme disease, gluten sensitivity, and perimenopausal symptoms, who presents to the ER with rapid heartbeat that is been ongoing since . She took her as needed propranolol and it improved somewhat the first day but then came back. She finally got to the point where her legs were feeling very heavy, her ankles were starting to swell and she was starting to hear herself wheeze and felt crackly in her chest and had a slight cough She had some chest pressure as well. In the ER, she was found to be in SVT with heart rates in the upper 160s. She was given adenosine x3 and IV Lopressor x2 without converting. Her rate did not slow down at all, but her blood pressure dropped to the 80s systolic and she felt lightheaded. When I saw her, she continued to feel lightheaded even with sitting up in bed. Troponin was negative. I discussed her case with cardiology who came to the ER and attempted to give adenosine again without conversion. She will be admitted for SVT. Cardiology plans on taking her for possible AALIYAH with cardioversion later this afternoon. Principal Diagnosis SVT Discharge Exam Constitutional: WD/WN, vitals as above Eyes: PERRL, conjunctivae normal, anicteric sclerae ENMT: external ear and nose normal, oropharynx normal Neck: trachea midline, no thyromegaly Respiratory: normal respiratory effort; no cough Auscultation: + crackles (Bibasilar); no rhonchi and no wheezes Cardiovascular: Rate/Rhythm: SVT Heart Sounds: no murmur Extremities: + edema (Trace ankle edema bilaterally) Chest (Breasts): Chest: normal inspection of chest Gastrointestinal (Abdomen): normal bowel sounds, soft, nontender, no hepatosplenomegaly Musculoskeletal: Extremities: extremities normal to inspection; no cyanosis and no clubbing Skin: no rashes, warm and dry Neurologic: moves all extremities and awake; no focal motor deficits Psychiatric: A+Ox3, euthymic affect Lymphatic: no lymphedema Discharge Data Allergies Allergy/AdvReac Type Severity Reaction Status Date / Time Cephalosporins Allergy Severe DIFFICULTY Verified 08/18/21 08:56 BREATHING Penicillins Allergy Intermediate RASH Verified 08/18/21 08:56 Consultations 08/18/21 10:50 ED Decision to Admit Stat 08/18/21 11:40 Consult Cardiology Routine Procedures Performed Operation Date: 08/18/21 14:00 Actual Procedures p EPS with Induction (RA,HIS, RV) - Mau Andrea MD s Ultrasound Vascular Access - Mau Andrea MD Ordered Studies 08/18/21 14:00 EP Lab Images for PACS ONCE Hospital Course (1) Supraventricular tachycardia: On admission: Patient presented with SVT that was persistent at home for at least 4 days. Came in when she developed ankle edema, shortness of breath and cough likely secondary to pulmonary edema seen on chest x-ray, and significant fatigue SVT was not converting after 4 rounds of adenosine and 2 doses of IV Lopressor, however she did become hypotensive from the Lopressor. She was lightheaded with sitting up in bed and had evidence of pulmonary edema on examination but was not hypoxic. -Admitted to PCU -Cardiology took her to the EP lab after admission and was able to terminate the tachycardia with catheter introduction and pacing -She was to be discharged in the evening after recovery from the procedure, but then she did not feel comfortable driving herself home without further observation overnight -Monitor on telemetry overnight -Follow electrolytes and replete as needed -Continue diltiazem but cardiology increased 180 mg daily -Continue propranolol as needed SVT plus vagal maneuvers after discharge The following day of discharge: Patient felt well. Discharge plan in place. Appreciate input from Cardio: The patient has a history of AV zan reentrant tachycardia. She underwent slow pathway ablation in 2013. However, she has had some recurrences since that time. Her rhythm today was quite regular and narrow complex. The overall heart rate was somewhat variable. It did not appear to be a typical atrial flutter. However, attempts administering adenosine not successful in terminating the arrhythmia. This may have been due to the peripheral location of her IV. Due to the unknown mechanism of her arrhythmia and a concern over an atypical atrial flutter she was brought to the electrophysiology suite where right internal jugular access was obtained and an EP catheter was advanced into the coronary sinus. This maneuver initially terminated the arrhythmia. Programmed stimulation did induce typical AV node reentrant tachycardia with a short VA time. The patient was subsequently paced out of the arrhythmia. We did discuss options for treatment moving forward. I think the best option is repeat slow pathway modification. We will see about arranging an ablation in the near future. In the interim will advise her to increase her diltiazem to 180 mg daily. I will provide her with a prescription for p.r.n. beta-blockade. She will continue to attempt vagal maneuvers if she has recurrent episodes of tachycardia. (2) Shortness of breath: Likely secondary to mild pulmonary edema secondary to SVT as well as the SVT itself Was given 1 dose of IV Lasix Not hypoxic (3) Hyperlipidemia: Continue omega-3 fatty acid on discharge (4) Anxiety and depression: Continue hydroxyzine as needed (5) Memory impairment: Reports she has difficulty with short-term memory since having Lyme disease She is on disability for issues with this plus chronic pain due to arthritis (6) Impaired fasting glucose: Hemoglobin A1c 5.7% in 2019 Follow with PCP (7) Sleep apnea: Mild, cannot tolerate CPAP DVT prophylaxis-SCDs Disposition-admit to PCU Total Time Total Time Spent Total Time Spent (In Minutes): 32 Discharge Plan Discharge Items Patient Disposition: Home - Self-Care Reason For Visit: SVT Discharge Diagnosis: SVT Condition on Discharge: Good Activity: Resume your previous activity Bathing: No limitations Driving/Machine Use: Resume 1 day after discharge Non-emergency contact: Business Objects Consultant Call non-emergency contact if: you have any medication questions and your symptoms worsen Follow-up/Referrals: Felipa Bowden CRNP [Nurse Practitioner] - 08/28/21 10:30 am (Please follow up with BLAIRE Munoz on 08/28/21 at 10:30 am. Please arrive to the office at 10:15 am for your appointment. If you are unable to keep this appointment, please call the office to reschedule at [phone].) Chai Macedo, [Primary Care Provider] - (Follow up appointment scheduled with BLAIRE Munoz.) Diet: Regular Addtl Attending Provider Instructions: May remove dressing on neck tomorrow morning. Pending Studies at Discharge: No Stand-Alone Forms: My [employer], Smoking Cessation Medications and DC Order Prescriptions: New diltiazem HCl 180 mg capsule,ext.rel 24h degradable 180 mg PO DAILY Qty: 30 RF: 3 Continued cholecalciferol (vitamin D3) 1,000 unit capsule 1,000 unit PO QAM RF: 0 omega-3 fatty acids [Fish Oil Concentrate] 1,000 mg capsule 1,000 mg PO DAILY PRN (Reason: NEEDED) RF: 0 multivitamin with iron [Daily Multiple Vitamins/Iron] tablet 1 tab PO QAM RF: 0 hydroxyzine HCl 25 mg tablet 25 mg PO TID PRN (Reason: anxiety) Qty: 30 RF: 0 melatonin 1 mg tablet 1 mg PO HS PRN (Reason: sleep) Qty: 30 RF: 0 albuterol sulfate [ProAir HFA] 90 mcg/actuation HFA aerosol inhaler 2 puff INH .q4-6h PRN (Reason: shortness of breath or wheezing) Qty: 8.5 RF: 3 glucosamine sulfate 2KCl 1,000 mg tablet 1,000 mg PO DAILY RF: 0 ibuprofen 600 mg tablet 600 mg PO Q6H Qty: 30 RF: 0 propranolol 20 mg tablet 20 mg PO TID PRN (Reason: palpitations) Qty: 30 RF: 3 Discontinued diltiazem HCl 120 mg capsule,extended release 24hr 120 mg PO QAM Qty: 90 RF: 3 Discharge Orders: Discharge Order (Routine); Ordered 08/19/21 Ordered By: Carmelo Noyola Admission Data Admit Date/Time: 08/18/21 12:09 Attending Provider: Carmelo Noyola Admit Provider: Clare Galvan Primary Care Provider: Chai Macedo Other Providers: Clare Galvan ; Mau Andrea Other Interventions: Discharge Summary Assessment (RN) Last Done: 08/19/21 10:36 Coding Level of Care Code 52038 OBS Care - Discharge Diagnoses Supraventricular tachycardia I47.1 Shortness of breath R06.02 Hyperlipidemia E78.5 Anxiety and depression F41.9; F32.9 Memory impairment R41.3 Impaired fasting glucose R73.01 Sleep apnea G47.30
--- NOTE | 2021-08-19 13:26 | Electrocardiogram Report ---
Test Reason : Blood Pressure : / mmHG Vent. Rate : 081 BPM Atrial Rate : 081 BPM P-R Int : 154 ms QRS Dur : 094 ms QT Int : 420 ms P-R-T Axes : 060 029 059 degrees QTc Int : 487 ms Normal sinus rhythm Possible Left atrial enlargement Nonspecific T wave abnormality Prolonged QT Abnormal ECG When compared with ECG of 18-AUG-2021 07:15, Vent. rate has decreased BY 100 BPM Nonspecific T wave abnormality no longer evident in Inferior leads Confirmed by David Andrea ([id number]) on 08/19/2021 1:26:02 PM Referred By: REFERRED SELF Confirmed By:Daniel Andrea
== END 2021-08-19 13:44 | disposition home or self-care (01) ==
LOC: ED 06:58 → EDINP 12:09 → INTOOBSV 12:09 → SUATTDRO 12:09 → 2S 19:24

== ENCOUNTER 2025-01-23 20:12 | Inpatient (IN) ==
[2025-01-23 21:15] LABS: Albumin Globulin Ratio 1.4 (0.9-2); Albumin Level 4.2 gm/dl (3.4-5.0); BUN Creatinine Ratio 18.7 (10-20); Bilirubin,Total 0.4 mg/dl (0.2-1.0); Calcium 8.9 mg/dl (8.6-10.3); Creatinine Clr Calc Pharmacy 104.2 ml/min; Potassium 4.2 mmol/L (3.5-5.1); Total Protein 7.2 gm/dl (6.0-8.3)
[2025-01-23 21:22] LABS: Troponin I High Sensitivity 5.2 pg/ml (0-14)
[2025-01-23 21:40] LABS: Basophils # (auto) 0.05 K/uL (0.00-0.20); Basophils % (auto) 0.4 %; Hematocrit (blood only) 43.1 % (37.0-47.0); Hemoglobin 14.3 g/dl (12.0-16.0); Immature Granulocytes # (auto) 0.06 K/uL (0.01-0.20); Immature Granulocytes % (auto) 0.5 %; Lymphocytes # (auto) 1.53 K/uL (1.20-3.40); Lymphocytes % (auto) 12.1 %; Mean Corpuscular Hemoglobin 30.4 pg (25.0-34.0); Mean Corpuscular Hgb Conc 33.2 g/dL (32.0-36.0); Mean Corpuscular Volume 91.5 fL (80.0-100.0); Mean Platelet Volume 9.2 fL (9.4-12.4); Monocytes # (auto) 0.94 K/uL (0.11-0.59); Monocytes % (auto) 7.4 %; Neutrophils # (auto) 10.07 K/uL (1.40-6.50); Neutrophils % (auto) 79.6 %; Platelet Count 329 K/uL (130-400); RDW Coefficient of Variation 13.8 % (11.5-14.5); RDW Standard Deviation 46.1 fL (36.4-46.3); Red Blood Count 4.71 M/uL (4.20-5.40); White Blood Count 12.65 K/ul (4.8-10.8)
[2025-01-23 21:44] LABS: Influenza A virus by PCR Negative (Neg); Influenza B virus by PCR Negative (Neg); RSV by PCR Negative (Neg); SARS CoV2 RNA(COVID-19) Ceph NEGATIVE (Negative)
[2025-01-23] MEDS: OPTIRAY 320 125ml IV ONE (21:44)
[2025-01-23 22:01] LABS: INR 0.9 (0.9-1.1); Partial Thromboplastin Time 26 Seconds (21-31); Prothrombin Time 9.8 Seconds (9.0-12.0)
[2025-01-23] MEDS: methylPREDNISolone 125 MG/2 ML VIAL IV STA (22:13)
[2025-01-23] MEDS: ALBUT/IPRATROP 3MG/0.5MG NEB 3 ML VIAL NEB STA (22:16)
--- NOTE | 2025-01-23 23:00 | Emergency Department Note ---
Impression & Plan SOB (shortness of breath), Pneumonia, Leukocytosis, Failure of outpatient treatment ED Provider Note NAME: TONIA ANDREWS AGE: 59 SEX: F : 1965 ARRIVES VIA: Walk-In INFORMANT: [Patient] ED PROVIDER(S): [Robbin Almanzar MD] CHIEF COMPLAINT: Shortness of breath HISTORY OF PRESENT ILLNESS: Patient is a 59-year-old female who has been sick for 4 days. She has had a cough, some shortness of breath. She was seen here yesterday and diagnosed with bronchitis. She presents back with worsening dyspnea and now bilateral rib pain, more so on the right. The patient denies sick contacts. She has no diagnosed lung disease. She is using an inhaler, Pepcid and prednisone. She is not currently on any antibiotic therapy. PMHx/PSHx/Social Hx: See Below PHYSICAL EXAM: GENERAL: Patient is in mild respiratory distress. HEENT: No acute trauma, normocephalic atraumatic, mucous membranes moist, no nasal congestion. NECK: No stridor, no adenopathy, no meningismus, trachea is midline. LUNGS: Wheezing with some crackles bilaterally. Breath sounds are diminished. She appears somewhat short of breath with speaking. In mild respiratory distress. HEART: Without murmurs gallops or rubs, regular rate and rhythm. ABDOMEN: Soft, nontender, no peritonitis. EXTREMITIES: No cyanosis, full range of motion of all the joints without pain or difficulty. NEUROLOGIC: Oriented x 3, no acute motor or sensory deficits, no focal weakness. SKIN: No jaundice, no diaphoresis. DIFFERENTIAL DIAGNOSIS: Bronchitis or pneumonia, CHF, viral illness, PE, failed outpatient management, among others. EMERGENCY DEPARTMENT PROCEDURES: MEDICAL DECISION MAKING: There is a mild leukocytosis, this could be consistent with infection or her steroid use. There is a normal hemoglobin and platelet count. No coagulopathy. No renal failure or significant electrolyte abnormality. Lactic acid level is not elevated making sepsis less likely. No concerning liver enzyme elevation. ECG showed a sinus rhythm, no ischemia. Cardiac enzyme testing x 1 is not consistent with acute cardiac injury. COVID, influenza and RSV test are negative. Chest x-ray shows some parenchymal congestion but no obvious focal pneumonia. Chest CT shows multifocal pneumonia, no PE. On exam, patient was mildly short of breath and had wheezing and crackles bilaterally. Breath sounds were diminished. The patient was given a DuoNeb, she received IV ceftriaxone. She was given IV Solu-Medrol. She does seem slightly improved with this treatment. The patient has pneumonia, this has caused her dyspnea. She is not doing well outpatient and, at this point, requires a hospital stay and inpatient care. I spoke with the patient and case management, the on-call hospitalist was consulted. Prior/Outside records/notes reviewed: Previous ED visit note describing her presentation, findings and plan outpatient. ECG per my interpretation: Indication was shortness of breath. The ECG shows a normal sinus rhythm with a rate of 99. There is no ST elevation, no PVCs. The QTc is 438. Continuous Cardiac Monitoring per my interpretation: An order was placed for continuous cardiac monitoring. The monitor shows a rate of 101 with sinus tachycardia. Imaging/x-ray results per my interpretation: Chest x-ray shows some bilateral parenchymal congestion primarily at the bases, there is no pneumothorax. Chronic Medical/Social conditions affecting care: None Care/Management discussed with: Case management, the on-call hospitalist. Level of care consideration(s): After review of the information above and other included data: --I believe the patient requires escalation of care to admission DISPOSITION: Admission Past Med/Surg History Problem List (Updated 01/24/25 @ 00:25 by Robbin Almanzar MD) Failure of outpatient treatment (Acute) Leukocytosis (Acute) Pneumonia (Acute) SOB (shortness of breath) (Acute) Acute bronchitis (Acute) Acute dyspnea (Acute) Morbid obesity Lung nodule Heart disease Borderline personality disorder Impaired fasting glucose Cardiac dysrhythmia, unspecified (04/06/13) Anxiety and depression Memory impairment Vitamin D deficiency Hyperlipidemia Peripheral edema Knee pain Sleep apnea COULD NOT TOLERATE CPAP Panic disorder (04/06/13) Atrial fibrillation (04/06/13) takes Propranolol as needed > no pacer, no specialist, controlled per pt History of Lyme disease Medical History Medical marijuana use Arthritis Seasonal allergies rare res inh use > only if gets really sick Internal hemorrhoids Abdominal bloating on occasion Supraventricular tachycardia no further issues since ablation Surgical History Hx of total knee replacement S/P Right TKA with Dr Burr on 01-26-23 History of total left knee replacement 11-05-22 S/P L TKA at [facility] with Dr Burr History of colonoscopy History of tooth extraction History of dilatation and curettage History of hysteroscopy Hx of removal of cyst AXILLA AND NECK Hx of oral surgery History of cardiac radiofrequency ablation (RFA) Jul 2021 Family History Grandfather (Paternal) Myocardial infarction Grandfather (Maternal) Stroke Other Cancer Diabetes Heart disease No pertinent family history in first degree relatives Ovarian cancer Denies family history of Prostate cancer Breast cancer Colorectal cancer Social History Smoking Status: Never smoker Second Hand Exposure: No; Do You Dip or Chew Tobacco: No; Hx Alcohol Use: No Hx Substance Use: No Preferred Language: Lithuanian Communication Ability: Effective Visual Impairment: Limited Hearing Ability: Normal Director Of Culture Required: No Beliefs That Will Affect Care: None marital status: Current Living Situation: Alone Current Living Situation Comment: Sometimes Lives with daughter and/or father current occupational status: disabled How many Children do You have: 1 Feels Safe at Home: Yes Childhood Exposure to Second-Hand Smoke: Yes Diet: regular caffeine: Yes (coffee) during the past year weight has: remained stable Dental Care, Regularly: No Physical Activity Frequency: 3-4 Times per Week Seatbelt Use: sometimes Sunscreen Use: Yes Assistive Devices: Cane and Glasses Allergies Allergies Allergy/AdvReac Type Severity Reaction Status Date / Time Penicillins Allergy Intermediate RASH Verified 01/23/25 22:14 Home Meds Home Medications Medication Instructions Recorded Confirmed cholecalciferol (vitamin D3) 25 1,000 unit PO QAM 11/24/22 01/23/25 mcg (1,000 unit) capsule albuterol sulfate 90 mcg/actuation 2 puff inhalation DIRECTED PRN 01/23/25 01/23/25 aerosol inhaler Shortness Of Breath Or Wheezing diphenhydramine HCl 25 mg capsule 25 mg PO HS PRN ITCHINESS 01/23/25 01/23/25 (Benadryl) multivitamin 1 tab PO DAILY 01/23/25 01/23/25 propranolol 20 mg tablet 20 mg PO TID PRN 01/23/25 01/23/25 palpitations/HEART RACING rosuvastatin 10 mg tablet (Crestor) 10 mg PO QPM 01/23/25 01/23/25 venlafaxine 37.5 mg 37.5 mg PO DAILY 01/23/25 01/23/25 capsule,extended release 24 hr venlafaxine 75 mg capsule,extended 75 mg PO DAILY 01/23/25 01/23/25 release 24 hr Previous Rx's Medication Instructions Recorded hydroxyzine HCl 25 mg tablet 25 mg PO TID PRN anxiety #30 tabs 03/11/19 hydrochlorothiazide 25 mg tablet 25 mg PO DAILY PRN Edema #30 tabs 11/25/22 diltiazem HCl 180 mg 180 mg PO QAM #90 caps 09/18/24 capsule,extended release 24 hr, controlled Results & Data (ED) Vital Signs Vital Signs - 24 hr 01/23/25 20:13 01/23/25 20:19 01/23/25 20:40 Temperature 37 C Temperature Source Temporal Artery Scan Pulse Rate 110 H Pulse Rate [Apical] Pulse Rhythm Regular Pulse Strength Normal Respiratory Rate 26 H Respiratory Effort / Characteristics Non-Labored Spontaneous Short of Breath Respiratory Depth Normal Normal Respiratory Pattern Regular Regular Blood Pressure 174/109 H Blood Pressure [Left Arm] Blood Pressure Mean 130 Blood Pressure Mean [Left Arm] Blood Pressure Position Sitting Blood Pressure Position [Left Arm] Pulse Oximetry 95 95 Oxygen Delivery Method Room Air Room Air Room Air Sepsis Recent Fever Within 48 Hours No Sepsis New/Unexplained Change in Mental Status N/A Sepsis Action Taken by Nursing No Action Required 01/23/25 20:40 01/23/25 20:48 01/23/25 20:59 Temperature Temperature Source Pulse Rate 99 H Pulse Rate [Apical] 96 H Pulse Rhythm Pulse Strength Respiratory Rate 13 Respiratory Effort / Characteristics Non-Labored Spontaneous Respiratory Depth Normal Respiratory Pattern Regular Blood Pressure Blood Pressure [Left Arm] 144/92 H 144/92 H Blood Pressure Mean Blood Pressure Mean [Left Arm] 109 109 Blood Pressure Position Blood Pressure Position [Left Arm] Semi-fowlers Pulse Oximetry 95 Oxygen Delivery Method Room Air Sepsis Recent Fever Within 48 Hours Sepsis New/Unexplained Change in Mental Status Sepsis Action Taken by Nursing 01/23/25 21:40 01/23/25 22:48 Temperature Temperature Source Pulse Rate Pulse Rate [Apical] 102 H 100 H Pulse Rhythm Pulse Strength Respiratory Rate 20 24 Respiratory Effort / Characteristics Non-Labored Spontaneous Respiratory Depth Normal Normal Respiratory Pattern Regular Blood Pressure Blood Pressure [Left Arm] 146/98 H 139/80 Blood Pressure Mean Blood Pressure Mean [Left Arm] 114 99 Blood Pressure Position Blood Pressure Position [Left Arm] Semi-fowlers Pulse Oximetry 95 92 Oxygen Delivery Method Room Air Room Air Sepsis Recent Fever Within 48 Hours Sepsis New/Unexplained Change in Mental Status Sepsis Action Taken by [facility] Medications Current Medication List: was personally reviewed by me Laboratory Data Attestation: I reviewed the patient's lab results. 01/23/25 20:42 01/23/25 20:42 Lab Results 01/23/25 01/23/25 01/23/25 Range/Units 20:42 21:00 22:21 WBC 12.65 H (4.8-10.8) K/ul RBC 4.71 (4.20-5.40) M/uL Hgb 14.3 (12.0-16.0) g/dl Hct 43.1 (37.0-47.0) % MCV 91.5 (80.0-100.0) fL MCH 30.4 (25.0-34.0) pg MCHC 33.2 (32.0-36.0) g/dL RDW Std Deviation 46.1 (36.4-46.3) fL RDW Coeff of Chaya 13.8 (11.5-14.5) % Plt Count 329 (130-400) K/uL MPV 9.2 L (9.4-12.4) fL Immature Gran % (Auto) 0.5 % Neut % (Auto) 79.6 % Lymph % (Auto) 12.1 % Navarro % (Auto) 7.4 % Eos % (Auto) 0.0 % Baso % (Auto) 0.4 % Neut # (Auto) 10.07 H (1.40-6.50) K/uL Lymph # (Auto) 1.53 (1.20-3.40) K/uL Navarro # (Auto) 0.94 H (0.11-0.59) K/uL Eos # (Auto) 0.00 (0.00-0.50) K/uL Baso # (Auto) 0.05 (0.00-0.20) K/uL Immature Gran # (Auto) 0.06 (0.01-0.20) K/uL PT 9.8 (9.0-12.0) Seconds INR 0.9 (0.9-1.1) APTT 26 (21-31) Seconds PTT Ratio 1.0 Sodium 136 (136-145) mmol/L Potassium 4.2 (3.5-5.1) mmol/L Chloride 102 (98-107) mmol/L Carbon Dioxide 27 (21-32) mmol/L Anion Gap 7 (3-11) BUN 14 (6-23) mg/dl Creatinine 0.75 (0.6-1.2) mg/dl Est Cr Clr Drug Dosing 104.2 ml/min eGFR 92.23 BUN/Creatinine Ratio 18.7 (10-20) Glucose 111 H (70-99(Fasting)) mg/dl Lactate 1.9 (0.4-2.0) mmol/L Calcium 8.9 (8.6-10.3) mg/dl Magnesium 1.9 (1.7-2.4) mg/dl Total Bilirubin 0.4 (0.2-1.0) mg/dl AST 25 (13-39) U/L ALT 21 (7-52) U/L Alkaline Phosphatase 82 (34-104) U/L Troponin I High Sens 5.2 (0-14) pg/ml Total Protein 7.2 (6.0-8.3) gm/dl Albumin 4.2 (3.4-5.0) gm/dl Globulin 3.0 (2.5-4.0) gm/dl Albumin/Globulin Ratio 1.4 (0.9-2) SARS-CoV-2 (PCR) NEGATIVE (Negative) Influenza Type A (PCR) Negative (Neg) Influenza Type B (PCR) Negative (Neg) RSV (RT-PCR) Negative (Neg) Administered Medications Discontinued Medications Albuterol (Albut/Ipratrop 3mg/0.5mg Neb 3 Ml Vial) 3 ml NEB NOW STA; Protocol Stop: 01/23/25 21:50 Last Admin: 01/23/25 22:16 Dose: 3 ml Documented By: KIRSTIN Ioversol (Optiray 320 125ml) 115 ml IV ONCE ONE Stop: 01/23/25 21:45 Last Admin: 01/23/25 21:44 Dose: 115 ml Documented By: SAMANTHA Methylprednisolone (Methylprednisolone 125 Mg/2 Ml Vial) 60 mg IV NOW STA Stop: 01/23/25 21:50 Last Admin: 01/23/25 22:13 Dose: 60 mg Documented By: KIRSTIN Imaging Data Radiologist's Impression: Chest X-Ray 01/23/25 20:18 Exam(s): XR CXR 1 VIEW EXAM: XR Chest, 1 View CLINICAL HISTORY: Chest pain, nonspecific. TECHNIQUE: Frontal view of the chest. COMPARISON: Portable chest single view 01/22/2025 FINDINGS: Lungs: Shallow inspiration. Minimal subsegmental changes in the lower lung zones. No lobar consolidation. The pulmonary vasculature appears equalized and prominent. No radiographic evidence for florid CHF. Pleural space: Unremarkable. No pneumothorax. No large pleural effusion. Heart: The cardiac silhouette is stable in appearance and presumed accentuated by portable technique. Mediastinum: The mediastinal contours are stable. The trachea is midline. Bones/joints: Unremarkable. No acute fracture. IMPRESSION: Minimal subsegmental changes in the lower lung zones may represent subtle asymmetric edema or atelectasis. No lobar consolidation. The pulmonary vasculature appears equalized and prominent, suggesting vascular congestion. No radiographic evidence for florid CHF. No large pleural effusion or pneumothorax. Electronically signed by: Isiah Benson MD 01/23/25 23:10 PM Chest CTA 01/23/25 21:11 Exam(s): CTA CHEST IV Amt: 115 ml optiray 320 EXAM: CT Angiography Chest With Intravenous Contrast CLINICAL HISTORY: Evaluate for potential PE. TECHNIQUE: Axial computed tomographic angiography images of the chest with intravenous contrast. CTDI is 28.14 mGy and DLP is 880.67 mGy-cm. Automated exposure control was utilized for the study. A dose lowering technique was utilized adhering to the principles of ALARA. MIP reconstructed images were created and reviewed. COMPARISON: CT chest without contrast dated 03/22/2023 FINDINGS: Pulmonary arteries: No evidence for pulmonary embolism. Aorta: No acute findings. No thoracic aortic aneurysm. Lungs: Consolidation involving the medial aspect of the right middle lobe with air bronchograms identified. Patchy opacities noted involving the superior medial segment of the right lower lobe and the posterior basal segment of the left lower lobe. Noncalcified juxtapleural pulmonary nodule involving the right posterior costophrenic margin of the posterior basal segment measuring 13 mm. This is stable in size from the prior examination. Pleural space: Unremarkable. No significant effusion. No pneumothorax. Heart: The cardiac chambers are mildly prominent. The pericardial effusion. Bones/joints: No acute fracture. No dislocation. Soft tissues: Unremarkable. Lymph nodes: Presumed reactive bilateral hilar lymph nodes. No significant paratracheal are pericarinal lymphadenopathy. IMPRESSION: 1. No evidence for pulmonary embolism. 2. Consolidation involving the medial aspect of the right middle lobe with air bronchograms identified. Patchy opacities noted involving the superior medial segment of the right lower lobe and the posterior basal segment of the left lower lobe. Findings are consistent with multifocal pneumonia. No pleural effusion or pneumothorax. 3. Noncalcified juxtapleural pulmonary nodule involving the right posterior costophrenic margin of the posterior basal segment measuring 13 mm. This is stable in size from the prior examination. No follow-up required. Electronically signed by: Isiah Benson MD 01/23/25 23:13 PM Discharge Plan Visit Data Chief Complaint: Shortness of Breath/Dyspnea Stated Complaint: SOB,COUGH,AND PAIN,FALL ED Provider: Robbin Almanzar Discharge Problem: SOB (shortness of breath), Pneumonia, Leukocytosis, Failure of outpatient treatment Patient Disposition: Admitted As Inpatient Condition: Fair Forms Stand Alone Forms: My [facility] Prescriptions Prescriptions: No Action cholecalciferol (vitamin D3) 25 mcg (1,000 unit) capsule 1,000 unit PO QAM diltiazem HCl 180 mg capsule,ext.rel 24h degradable 180 mg PO QAM Qty: 90 1RF hydroxyzine HCl 25 mg tablet 25 mg PO TID PRN (Reason: anxiety) Qty: 30 0RF hydrochlorothiazide 25 mg tablet 25 mg PO DAILY PRN (Reason: Edema) Qty: 30 11RF multivitamin Tablet 1 tab PO DAILY venlafaxine 37.5 mg capsule,extended release 24hr 37.5 mg PO DAILY Rx Instructions: TOTAL DOSE 112.5 MG--TAKES WITH 75 MG CAP. venlafaxine 75 mg capsule,extended release 24hr 75 mg PO DAILY Rx Instructions: TOTAL DOSE 112.5 MG--TAKES WITH 37.5 MG CAP. diphenhydramine HCl [Benadryl] 25 mg Capsule 25 mg PO HS PRN (Reason: ITCHINESS) albuterol sulfate 90 mcg/actuation Hfa Aerosol Inhaler 2 puff INHALATION DIRECTED PRN (Reason: Shortness Of Breath Or Wheezing) rosuvastatin [Crestor] 10 mg Tablet 10 mg PO QPM Rx Instructions: UNABLE TO VERIFY THIS MED, ON [facility] MED LIST propranolol 20 mg tablet 20 mg PO TID PRN (Reason: palpitations/HEART RACING) Referrals Referrals: Philip Hoover MD [Primary Care Provider] - Discharge Problem: Pneumonia Qualifiers: Pneumonia type: due to unspecified organism Laterality: bilateral Lung location: unspecified part of lung Qualified Code(s): J18.9 - Pneumonia, unspecified organism Leukocytosis Qualifiers: Leukocytosis type: unspecified Qualified Code(s): D72.829 - Elevated white blood cell count, unspecified
--- NOTE | 2025-01-23 23:11 | XRay Report ---
Exam(s): XR CXR 1 VIEW EXAM: XR Chest, 1 View CLINICAL HISTORY: Chest pain, nonspecific. TECHNIQUE: Frontal view of the chest. COMPARISON: Portable chest single view 01/22/2025 FINDINGS: Lungs: Shallow inspiration. Minimal subsegmental changes in the lower lung zones. No lobar consolidation. The pulmonary vasculature appears equalized and prominent. No radiographic evidence for florid CHF. Pleural space: Unremarkable. No pneumothorax. No large pleural effusion. Heart: The cardiac silhouette is stable in appearance and presumed accentuated by portable technique. Mediastinum: The mediastinal contours are stable. The trachea is midline. Bones/joints: Unremarkable. No acute fracture. IMPRESSION: Minimal subsegmental changes in the lower lung zones may represent subtle asymmetric edema or atelectasis. No lobar consolidation. The pulmonary vasculature appears equalized and prominent, suggesting vascular congestion. No radiographic evidence for florid CHF. No large pleural effusion or pneumothorax. Electronically signed by: Isiah Benson MD 01/23/25 23:10 PM
--- NOTE | 2025-01-23 23:14 | CT Scan Report ---
Exam(s): CTA CHEST IV Amt: 115 ml optiray 320 EXAM: CT Angiography Chest With Intravenous Contrast CLINICAL HISTORY: Evaluate for potential PE. TECHNIQUE: Axial computed tomographic angiography images of the chest with intravenous contrast. CTDI is 28.14 mGy and DLP is 880.67 mGy-cm. Automated exposure control was utilized for the study. A dose lowering technique was utilized adhering to the principles of ALARA. MIP reconstructed images were created and reviewed. COMPARISON: CT chest without contrast dated 03/22/2023 FINDINGS: Pulmonary arteries: No evidence for pulmonary embolism. Aorta: No acute findings. No thoracic aortic aneurysm. Lungs: Consolidation involving the medial aspect of the right middle lobe with air bronchograms identified. Patchy opacities noted involving the superior medial segment of the right lower lobe and the posterior basal segment of the left lower lobe. Noncalcified juxtapleural pulmonary nodule involving the right posterior costophrenic margin of the posterior basal segment measuring 13 mm. This is stable in size from the prior examination. Pleural space: Unremarkable. No significant effusion. No pneumothorax. Heart: The cardiac chambers are mildly prominent. The pericardial effusion. Bones/joints: No acute fracture. No dislocation. Soft tissues: Unremarkable. Lymph nodes: Presumed reactive bilateral hilar lymph nodes. No significant paratracheal are pericarinal lymphadenopathy. IMPRESSION: 1. No evidence for pulmonary embolism. 2. Consolidation involving the medial aspect of the right middle lobe with air bronchograms identified. Patchy opacities noted involving the superior medial segment of the right lower lobe and the posterior basal segment of the left lower lobe. Findings are consistent with multifocal pneumonia. No pleural effusion or pneumothorax. 3. Noncalcified juxtapleural pulmonary nodule involving the right posterior costophrenic margin of the posterior basal segment measuring 13 mm. This is stable in size from the prior examination. No follow-up required. Electronically signed by: Isiah Benson MD 01/23/25 23:13 PM
--- NOTE | 2025-01-23 23:50 | History & Physical Report ---
Date of Service January 23, 2025 Assessment & Plan (1) Sepsis: Plan: Sepsis secondary to community acquired pneumonia PAF/PSVT status post ablation as per records, patient known to [facility] TISHA CPAP intolerance hypertension, stable hyperlipidemia, on statin Rx anxiety/mood disorder, mild anxiety during encounter prediabetes, hemoglobin A1c of 5.9 from last year Admit to med/tele CS, Ceftriaxone, Doxycycline Update hemoglobin A1c DVT prophylaxis. Lovenox subcu Full code Text document was generated using [employer] voice recognition software. It may contain grammatical or spelling errors. Kindly contact undersigned for clarification of any documentation item in question. History of Present Illness Chief Complaint: Worsening cough, SOB Primary Care Provider: Philip Hoover MD History obtained from patient and records. Medical history significant for PAF as per records, PSVT status post ablation, TISHA CPAP intolerance, exercise-induced bronchospasm as per records, hypertension, hyperlipidemia, polyarthralgia as per records, PCOS, anxiety/mood disorder, prediabetes. Last confinement July 2021 for SVT. Few days history of junky cough symptoms with some wheezing and SOB possible sick contacts. Denies aspiration. Chest pain from coughing. No unusual fluid retention. Patient seen at the ER yesterday. Patient discharged home on prednisone Rx for bronchitis. Worsening symptoms today. Pleuritic chest pain. Occasional palpitations. Chills at home. Patient return to ER for evaluation. Medical History as above Surgical History : Knee surgeries, dental surgery, tailbone cyst removal Family History : DM, heart disease Personal/Social history : Non-smoker, no EtOH intake, disabled Allergies Allergy/AdvReac Type Severity Reaction Status Date / Time Penicillins Allergy Intermediate RASH Verified 01/23/25 22:14 Home Medications Medication Instructions Recorded Confirmed Type hydroxyzine HCl 25 mg tablet 25 mg PO TID PRN anxiety #30 tabs 03/11/19 01/23/25 Rx cholecalciferol (vitamin D3) 25 1,000 unit PO QAM 11/24/22 01/23/25 History mcg (1,000 unit) capsule hydrochlorothiazide 25 mg tablet 25 mg PO DAILY PRN Edema #30 tabs 11/25/22 01/23/25 Rx diltiazem HCl 180 mg 180 mg PO QAM #90 caps 09/18/24 01/23/25 Rx capsule,extended release 24 hr, controlled albuterol sulfate 90 mcg/actuation 2 puff inhalation DIRECTED PRN 01/23/25 01/23/25 History aerosol inhaler Shortness Of Breath Or Wheezing diphenhydramine HCl 25 mg capsule 25 mg PO HS PRN ITCHINESS 01/23/25 01/23/25 History (Benadryl) multivitamin 1 tab PO DAILY 01/23/25 01/23/25 History propranolol 20 mg tablet 20 mg PO TID PRN 01/23/25 01/23/25 History palpitations/HEART RACING rosuvastatin 10 mg tablet (Crestor) 10 mg PO QPM 01/23/25 01/23/25 History venlafaxine 37.5 mg 37.5 mg PO DAILY 01/23/25 01/23/25 History capsule,extended release 24 hr venlafaxine 75 mg capsule,extended 75 mg PO DAILY 01/23/25 01/23/25 History release 24 hr Past Med/Surg History Problem List (Updated 01/24/25 @ 03:16 by Daryl Fields MD) Sepsis Failure of outpatient treatment (Acute) Leukocytosis (Acute) Pneumonia (Acute) SOB (shortness of breath) (Acute) Acute bronchitis (Acute) Acute dyspnea (Acute) Morbid obesity Lung nodule Heart disease Borderline personality disorder Impaired fasting glucose Cardiac dysrhythmia, unspecified (04/06/13) Anxiety and depression Memory impairment Vitamin D deficiency Hyperlipidemia Peripheral edema Knee pain Sleep apnea COULD NOT TOLERATE CPAP Panic disorder (04/06/13) Atrial fibrillation (04/06/13) takes Propranolol as needed > no pacer, no specialist, controlled per pt History of Lyme disease Medical History Medical marijuana use Arthritis Seasonal allergies rare res inh use > only if gets really sick Internal hemorrhoids Abdominal bloating on occasion Supraventricular tachycardia no further issues since ablation Surgical History Hx of total knee replacement S/P Right TKA with Dr Burr on 01-26-23 History of total left knee replacement 11-05-22 S/P L TKA at [facility] with Dr Burr History of colonoscopy History of tooth extraction History of dilatation and curettage History of hysteroscopy Hx of removal of cyst AXILLA AND NECK Hx of oral surgery History of cardiac radiofrequency ablation (RFA) Jul 2021 Family History Grandfather (Paternal) Myocardial infarction Grandfather (Maternal) Stroke Other Cancer Diabetes Heart disease No pertinent family history in first degree relatives Ovarian cancer Denies family history of Prostate cancer Breast cancer Colorectal cancer Social History Smoking Status: Never smoker Second Hand Exposure: No; Do You Dip or Chew Tobacco: No; Hx Alcohol Use: No Hx Substance Use: No Preferred Language: Filipino Communication Ability: Effective Visual Impairment: Limited Hearing Ability: Normal Sap Basis Required: No Beliefs That Will Affect Care: None marital status: Current Living Situation: Alone Current Living Situation Comment: Sometimes Lives with daughter and/or father current occupational status: disabled How many Children do You have: 1 Feels Safe at Home: Yes Childhood Exposure to Second-Hand Smoke: Yes Diet: regular caffeine: Yes (coffee) during the past year weight has: remained stable Dental Care, Regularly: No Physical Activity Frequency: 3-4 Times per Week Seatbelt Use: sometimes Sunscreen Use: Yes Assistive Devices: Cane and Glasses Review of Systems Review of Systems: As per HPI, all other systems reviewed and negative Physical Exam Physical Exam: GENERAL: uncomfortable, pleasant, morbidly obese, no respiratory distress SKIN: Normal color, warm HEENT: [place] palpebral conjunctivae, no ptosis, dry buccal mucosa NECK : Supple, short neck, no tenderness CHEST : Decreased breath sounds, no tenderness HEART : Tachycardic, no obvious murmurs ABDOMEN: Some distention, nontender EXTREMITIES : Minimal LE swelling without tenderness, palpable pulses, no other conspicuous deformities noted NEUROLOGIC : Coherent, no facial asymmetry, no other gross focality Results & Data Results & Data Vital Signs (Past 12 Hours) Vital Signs Temp Pulse Pulse Resp BP BP Pulse Ox 01/23/25 22:48 100 H 24 139/80 92 01/23/25 21:40 102 H 20 146/98 H 95 01/23/25 20:59 99 H 01/23/25 20:48 144/92 H 01/23/25 20:40 96 H 13 144/92 H 95 01/23/25 20:40 95 01/23/25 20:19 01/23/25 20:13 37 C 110 H 26 H 174/109 H 95 O2 Del Method 01/23/25 22:48 Room Air 01/23/25 21:40 Room Air 01/23/25 20:59 01/23/25 20:48 01/23/25 20:40 Room Air 01/23/25 20:40 Room Air 01/23/25 20:19 Room Air 01/23/25 20:13 Room Air Laboratory Results Laboratory Results WBC 12.65 K/ul (4.8-10.8) H 01/23/25 20:42 RBC 4.71 M/uL (4.20-5.40) 01/23/25 20:42 Hgb 14.3 g/dl (12.0-16.0) 01/23/25 20:42 Hct 43.1 % (37.0-47.0) 01/23/25 20:42 MCV 91.5 fL (80.0-100.0) 01/23/25 20:42 MCH 30.4 pg (25.0-34.0) 01/23/25 20:42 MCHC 33.2 g/dL (32.0-36.0) 01/23/25 20:42 RDW Std Deviation 46.1 fL (36.4-46.3) 01/23/25 20:42 RDW Coeff of Chaya 13.8 % (11.5-14.5) 01/23/25 20:42 Plt Count 329 K/uL (130-400) 01/23/25 20:42 MPV 9.2 fL (9.4-12.4) L 01/23/25 20:42 Immature Gran % (Auto) 0.5 % 01/23/25 20:42 Neut % (Auto) 79.6 % 01/23/25 20:42 Lymph % (Auto) 12.1 % 01/23/25 20:42 [place] % (Auto) 7.4 % 01/23/25 20:42 Eos % (Auto) 0.0 % 01/23/25 20:42 Baso % (Auto) 0.4 % 01/23/25 20:42 Neut # (Auto) 10.07 K/uL (1.40-6.50) H 01/23/25 20:42 Lymph # (Auto) 1.53 K/uL (1.20-3.40) 01/23/25 20:42 [place] # (Auto) 0.94 K/uL (0.11-0.59) H 01/23/25 20:42 Eos # (Auto) 0.00 K/uL (0.00-0.50) 01/23/25 20:42 Baso # (Auto) 0.05 K/uL (0.00-0.20) 01/23/25 20:42 Immature Gran # (Auto) 0.06 K/uL (0.01-0.20) 01/23/25 20:42 PT 9.8 Seconds (9.0-12.0) 01/23/25 20: INR 0.9 (0.9-1.1) 01/23/25 20:42 APTT 26 Seconds (21-31) 01/23/25 20: PTT Ratio 1.0 01/23/25 20:42 Sodium 136 mmol/L (136-145) 01/23/25 20:42 Potassium 4.2 mmol/L (3.5-5.1) 01/23/25 20:42 Chloride 102 mmol/L (98-107) 01/23/25 20: Carbon Dioxide 27 mmol/L (21-32) 01/23/25 20:42 Anion Gap 7 (3-11) 01/23/25 20:42 BUN 14 mg/dl (6-23) 01/23/25 20: Creatinine 0.75 mg/dl (0.6-1.2) 01/23/25 20:42 Est Cr Clr Drug Dosing 104.2 ml/min 01/23/25 20:42 eGFR 92.23 01/23/25 20:42 BUN/Creatinine Ratio 18.7 (10-20) 01/23/25 20:42 Glucose 111 mg/dl (70-99(Fasting)) H 01/23/25 20:42 Lactate 1.9 mmol/L (0.4-2.0) 01/23/25 22:21 Calcium 8.9 mg/dl (8.6-10.3) 01/23/25 20:42 Total Bilirubin 0.4 mg/dl (0.2-1.0) 01/23/25 20:42 AST 25 U/L (13-39) 01/23/25 20:42 ALT 21 U/L (7-52) 01/23/25 20:42 Alkaline Phosphatase 82 U/L (34-104) 01/23/25 20:42 Troponin I High Sens 5.2 pg/ml (0-14) 01/23/25 20:42 Total Protein 7.2 gm/dl (6.0-8.3) 01/23/25 20:42 Albumin 4.2 gm/dl (3.4-5.0) 01/23/25 20:42 Globulin 3.0 gm/dl (2.5-4.0) 01/23/25 20:42 Albumin/Globulin Ratio 1.4 (0.9-2) 01/23/25 20:42 SARS-CoV-2 (PCR) NEGATIVE (Negative) 01/23/25 21:00 Influenza Type A (PCR) Negative (Neg) 01/23/25 21:00 Influenza Type B (PCR) Negative (Neg) 01/23/25 21:00 RSV (RT-PCR) Negative (Neg) 01/23/25 21:00 Impressions Chest X-Ray 01/23/25 20:18 Exam(s): XR CXR 1 VIEW EXAM: XR Chest, 1 View CLINICAL HISTORY: Chest pain, nonspecific. TECHNIQUE: Frontal view of the chest. COMPARISON: Portable chest single view 01/22/2025 FINDINGS: Lungs: Shallow inspiration. Minimal subsegmental changes in the lower lung zones. No lobar consolidation. The pulmonary vasculature appears equalized and prominent. No radiographic evidence for florid CHF. Pleural space: Unremarkable. No pneumothorax. No large pleural effusion. Heart: The cardiac silhouette is stable in appearance and presumed accentuated by portable technique. Mediastinum: The mediastinal contours are stable. The trachea is midline. Bones/joints: Unremarkable. No acute fracture. IMPRESSION: Minimal subsegmental changes in the lower lung zones may represent subtle asymmetric edema or atelectasis. No lobar consolidation. The pulmonary vasculature appears equalized and prominent, suggesting vascular congestion. No radiographic evidence for florid CHF. No large pleural effusion or pneumothorax. Electronically signed by: Isiah Benson MD 01/23/25 23:10 PM Chest CTA 01/23/25 21:11 Exam(s): CTA CHEST IV Amt: 115 ml optiray 320 EXAM: CT Angiography Chest With Intravenous Contrast CLINICAL HISTORY: Evaluate for potential PE. TECHNIQUE: Axial computed tomographic angiography images of the chest with intravenous contrast. CTDI is 28.14 mGy and DLP is 880.67 mGy-cm. Automated exposure control was utilized for the study. A dose lowering technique was utilized adhering to the principles of ALARA. MIP reconstructed images were created and reviewed. COMPARISON: CT chest without contrast dated 03/22/2023 FINDINGS: Pulmonary arteries: No evidence for pulmonary embolism. Aorta: No acute findings. No thoracic aortic aneurysm. Lungs: Consolidation involving the medial aspect of the right middle lobe with air bronchograms identified. Patchy opacities noted involving the superior medial segment of the right lower lobe and the posterior basal segment of the left lower lobe. Noncalcified juxtapleural pulmonary nodule involving the right posterior costophrenic margin of the posterior basal segment measuring 13 mm. This is stable in size from the prior examination. Pleural space: Unremarkable. No significant effusion. No pneumothorax. Heart: The cardiac chambers are mildly prominent. The pericardial effusion. Bones/joints: No acute fracture. No dislocation. Soft tissues: Unremarkable. Lymph nodes: Presumed reactive bilateral hilar lymph nodes. No significant paratracheal are pericarinal lymphadenopathy. IMPRESSION: 1. No evidence for pulmonary embolism. 2. Consolidation involving the medial aspect of the right middle lobe with air bronchograms identified. Patchy opacities noted involving the superior medial segment of the right lower lobe and the posterior basal segment of the left lower lobe. Findings are consistent with multifocal pneumonia. No pleural effusion or pneumothorax. 3. Noncalcified juxtapleural pulmonary nodule involving the right posterior costophrenic margin of the posterior basal segment measuring 13 mm. This is stable in size from the prior examination. No follow-up required. Electronically signed by: Isiah Benson MD 01/23/25 23:13 PM Diagnostic Findings EKG as per my interpretation :Rate 100, NSR, LAD, LAFB, no ischemia
[2025-01-23 23:57] LABS: Magnesium 1.9 mg/dl (1.7-2.4)
[2025-01-24] MEDS ORDERED: hydrOXYzine HCl 25 MG TAB PO PRN (00:17)
[2025-01-24] MEDS ORDERED: oxyCODONE HCL IR 5 MG TAB (IMMEDIATE RELEASE) PO PRN (00:18)
[2025-01-24] MEDS ORDERED: KETOROLAC TROMETHAMINE 15 MG/ML VIAL IV PRN (00:20)
[2025-01-24] MEDS: cefTRIAXone SODIUM 2,000 MG/50 ML BAG IV SCH (00:54)
[2025-01-24] MEDS: SODIUM CHLORIDE 0.9% 1,000 ML IV ONE (00:54)
[2025-01-24] MEDS: DOXYCYCLINE HYCLATE 100 MG in DEXTROSE 5% MINI-B 100 ML IV STA (00:55)
[2025-01-24] MEDS: ACETAMINOPHEN 325 MG TAB PO PRN (01:06)
[2025-01-24] MEDS: MAGNESIUM SULFATE / D5W 1 GM/100 ML BAG IV ONE (03:22)
[2025-01-24] MEDS: dilTIAZem HCL 180 MG CAPCR PO STA (03:23)
[2025-01-24 06:42] LABS: Basophils # (auto) 0.02 K/uL (0.00-0.20); Basophils % (auto) 0.2 %; Hematocrit (blood only) 42.2 % (37.0-47.0); Immature Granulocytes # (auto) 0.08 K/uL (0.01-0.20); Immature Granulocytes % (auto) 0.8 %; Lymphocytes # (auto) 0.96 K/uL (1.20-3.40); Lymphocytes % (auto) 9.6 %; Mean Corpuscular Hemoglobin 30.1 pg (25.0-34.0); Mean Corpuscular Hgb Conc 33.2 g/dL (32.0-36.0); Mean Corpuscular Volume 90.8 fL (80.0-100.0); Mean Platelet Volume 9.1 fL (9.4-12.4); Monocytes # (auto) 0.18 K/uL (0.11-0.59); Monocytes % (auto) 1.8 %; Neutrophils # (auto) 8.75 K/uL (1.40-6.50); Neutrophils % (auto) 87.6 %; Platelet Count 318 K/uL (130-400); RDW Standard Deviation 46.1 fL (36.4-46.3); Red Blood Count 4.65 M/uL (4.20-5.40); White Blood Count 9.99 K/ul (4.8-10.8)
[2025-01-24 07:15] LABS: BUN Creatinine Ratio 19.1 (10-20); Calcium 8.6 mg/dl (8.6-10.3); Creatinine Clr Calc Pharmacy 113.5 ml/min; Potassium 4.3 mmol/L (3.5-5.1)
[2025-01-24] MEDS: PROMETHAZINE 12.5 MG/50.5 ML BAG IV PRN (07:43)
[2025-01-24] MEDS: ENOXAPARIN INJ 40 MG/0.4 ML SYR SQ SCH (08:29)
[2025-01-24] MEDS: CHOLECALCIFEROL 25 MCG (1000 UNITS) TAB PO SCH (08:29)
[2025-01-24] MEDS: VENLAFAXINE HCL XR 37.5 MG CAPXR PO SCH (08:30)
[2025-01-24] MEDS: VENLAFAXINE HCL XR 75 MG CAPXR PO SCH (08:30)
[2025-01-24] MEDS: MULTIVITAMIN TAB PO SCH (08:30)
[2025-01-24] MEDS ORDERED: dilTIAZem HCL 180 MG CAPCR PO SCH (09:00)
[2025-01-24] MEDS: guaiFENesin 600 MG TABCR PO SCH (09:16)
[2025-01-24] MEDS ORDERED: LOPERAMIDE HCL 2 MG CAP PO PRN (16:06)
--- NOTE | 2025-01-24 16:17 | Hospitalist Progress Note ---
Date of Service January 24, 2025 Assessment & Plan (1) Sepsis: Plan: Ms. Landaverde is a 59 year old woman with medical history significant for PAF as per records, PSVT status post ablation, TISHA CPAP intolerance, exercise-induced bronchospasm as per records, hypertension, hyperlipidemia, polyarthralgia as per records, PCOS, anxiety/mood disorder, prediabetes admitted to [facility] for sepsis secondary to community acquired pneumonia. #Sepsis 2/2 CAP #Multifocal pneumonia WBC 12.65, HR 110 CTA with RML pneumonia and LLL as well continue ctx and doxy started Mucinex add flutter valve no indications for steroids at this time #Diarrhea stool pcr, suspect viral imodium prn #Small pulm nodule 13mm on imaging, stable, no follow up recommended #PAF/PSVT status post ablation as per records, patient known to [facility] continue home Diltazem #TISHA CPAP intolerance #hypertension continue hctz #hyperlipidemia on statin Rx #anxiety/mood disorder continue hydroxyzine and venlafaxine #prediabetes #obesity bmi 41.8 A1C 5.9% counseled dvt ppx lovenox dispo 1-2 days Admission and Anticipated Discharge Date Admission Date: January 23, 2025 Subjective Reports subjective improvement but overall still feels poorly reports of diarrhea today, suspects it was related to medications prescribed from ed Denies any fevers, chills reports sensation of needing to cough up sputum, but still thick No new concerns reported Physical Exam Constitutional: WD/WN, vitals as above Respiratory: normal respiratory effort, lungs clear to auscultation Cardiovascular: RRR, no murmur, no edema Gastrointestinal (Abdomen): normal bowel sounds, soft, nontender, no hepatosplenomegaly Results & Data Results & Data Vital Signs (Past 12 Hours) Vital Signs Temp Pulse Pulse Resp BP Pulse Ox O2 Del Method 01/24/25 15:14 37.1 C 86 18 166/91 H 92 Room Air 01/24/25 14:37 80 01/24/25 11:16 37.0 C 84 18 132/77 92 Room Air 01/24/25 08:25 Room Air 01/24/25 07:33 36.4 C L 89 18 140/87 90 Room Air 01/24/25 07:05 85 Laboratory Results Short CBC 01/23/25 01/24/25 Range/Units 20:42 05:58 WBC 12.65 H 9.99 (4.8-10.8) K/ul Hgb 14.3 14.0 (12.0-16.0) g/dl Hct 43.1 42.2 (37.0-47.0) % Plt Count 329 318 (130-400) K/uL BMP 01/23/25 01/24/25 20:42 05:58 Sodium 136 138 Potassium 4.2 4.3 Chloride 102 103 Carbon Dioxide 27 27 BUN 14 13 Creatinine 0.75 0.68 Glucose 111 H 163 H Calcium 8.9 8.6 Liver Function 01/23/25 Range/Units 20:42 Total Bilirubin 0.4 (0.2-1.0) mg/dl AST 25 (13-39) U/L ALT 21 (7-52) U/L Alkaline Phosphatase 82 (34-104) U/L Albumin 4.2 (3.4-5.0) gm/dl Medications Administered Home Medications Medication Instructions Recorded Confirmed Last Taken hydroxyzine HCl 25 mg tablet 25 mg PO TID PRN anxiety #30 tabs 03/11/19 01/23/25 08/18/21 cholecalciferol (vitamin D3) 25 1,000 unit PO QAM 11/24/22 01/23/25 01/23/25 mcg (1,000 unit) capsule hydrochlorothiazide 25 mg tablet 25 mg PO DAILY PRN Edema #30 tabs 11/25/22 01/23/25 Unknown diltiazem HCl 180 mg 180 mg PO QAM #90 caps 09/18/24 01/23/25 01/23/25 capsule,extended release 24 hr, controlled albuterol sulfate 90 mcg/actuation 2 puff inhalation DIRECTED PRN 01/23/25 01/23/25 Unknown aerosol inhaler Shortness Of Breath Or Wheezing diphenhydramine HCl 25 mg capsule 25 mg PO HS PRN ITCHINESS 01/23/25 01/23/25 Unknown (Benadryl) multivitamin 1 tab PO DAILY 01/23/25 01/23/25 01/23/25 propranolol 20 mg tablet 20 mg PO TID PRN 01/23/25 01/23/25 Unknown palpitations/HEART RACING rosuvastatin 10 mg tablet (Crestor) 10 mg PO QPM 01/23/25 01/23/25 01/22/25 venlafaxine 37.5 mg 37.5 mg PO DAILY 01/23/25 01/23/25 01/23/25 capsule,extended release 24 hr venlafaxine 75 mg capsule,extended 75 mg PO DAILY 01/23/25 01/23/25 01/23/25 release 24 hr Active Medications Generic Name Dose Route Start Last Admin Trade Name Freq PRN Reason Stop Dose Admin Acetaminophen 650 mg 01/24/25 00:20 01/24/25 01:06 Acetaminophen 325 Mg Tab PO 02/23/25 00:19 650 mg QID PRN Administration pain/fever Enoxaparin Sodium 40 mg 01/24/25 09:00 01/24/25 08:29 Enoxaparin Inj 40 Mg/0.4 Ml Syr SQ 02/23/25 08:59 40 mg QAM GREGORIO Administration Guaifenesin 600 mg 01/24/25 09:00 01/24/25 09:16 Guaifenesin 600 Mg Tabcr PO 02/23/25 08:59 600 mg Q12 GREGORIO Administration Ceftriaxone Sodium 2,000 mg in 50 mls @ 100 mls/hr 01/24/25 01:00 01/24/25 01:24 Rocephin IV 01/29/25 00:59 Infused Q24H GREGORIO Infusion Promethazine HCl 12.5 mg in 50.5 mls @ 202 mls/hr 01/24/25 00:18 01/24/25 08:10 Phenergan IV 02/23/25 00:17 Infused Q6H PRN Infusion Nausea And Vomiting Multivitamins 1 tab 01/24/25 09:00 01/24/25 08:30 Multivitamin Tab PO 02/23/25 08:59 1 tab DAILY GREGORIO Administration Venlafaxine HCl 37.5 mg 01/24/25 09:00 01/24/25 08:30 Venlafaxine Hcl Xr 37.5 Mg Capxr PO 02/23/25 08:59 37.5 mg DAILY GREGORIO Administration Venlafaxine HCl 75 mg 01/24/25 09:00 01/24/25 08:30 Venlafaxine Hcl Xr 75 Mg Capxr PO 02/23/25 08:59 75 mg DAILY GREGORIO Administration Vitamin D 25 mcg 01/24/25 09:00 01/24/25 08:29 Cholecalciferol 25 Mcg (1000 Units) Tab PO 02/23/25 08:59 25 mcg QAM GREGORIO Administration
[2025-01-24] MEDS: SACCHAROMYCES BOULARDII 250 MG CAP PO SCH (16:44)
[2025-01-24] MEDS: ALBUTEROL 0.5% NEB SOLN 2.5 MG/0.5 ML VIAL NEB PRN (20:13)
[2025-01-24] MEDS: DOXYCYCLINE HYCLATE 100 MG CAP PO SCH (21:50)
[2025-01-24] MEDS: ROSUVASTATIN CALCIUM 10 MG TAB PO SCH (21:50)
--- NOTE | 2025-01-25 07:58 | Electrocardiogram Report ---
Test Reason : Blood Pressure : */* mmHG Vent. Rate : 99 BPM Atrial Rate : 99 BPM P-R Int : 142 ms QRS Dur : 86 ms QT Int : 342 ms P-R-T Axes : 53 12 44 degrees QTcB Int : 438 ms Poor data quality, interpretation may be adversely affected Normal sinus rhythm When compared with ECG of 22-Jan-2025 09:51, No significant change was found Confirmed by Amish Menezes ([id number]) on 01/25/2025 7:57:47 AM Referred By: REFERRED SELF Confirmed By: Amish Menezes
[2025-01-25] MEDS: dilTIAZem HCL 180 MG CAPCR PO SCH (09:20)
[2025-01-25 09:52] LABS: Hematocrit (blood only) 43.7 % (37.0-47.0); Hemoglobin 14.6 g/dl (12.0-16.0); Mean Corpuscular Hemoglobin 30.5 pg (25.0-34.0); Mean Corpuscular Hgb Conc 33.4 g/dL (32.0-36.0); Mean Corpuscular Volume 91.2 fL (80.0-100.0); Mean Platelet Volume 8.8 fL (9.4-12.4); Platelet Count 306 K/uL (130-400); RDW Coefficient of Variation 13.9 % (11.5-14.5); RDW Standard Deviation 46.6 fL (36.4-46.3); Red Blood Count 4.79 M/uL (4.20-5.40); White Blood Count 10.06 K/ul (4.8-10.8)
[2025-01-25 10:18] LABS: BUN Creatinine Ratio 17.8 (10-20); Calcium 8.9 mg/dl (8.6-10.3); Creatinine Clr Calc Pharmacy 105.7 ml/min; Potassium 3.5 mmol/L (3.5-5.1)
--- NOTE | 2025-01-25 16:39 | Hospitalist Progress Note ---
Date of Service January 25, 2025 Assessment & Plan (1) Sepsis: Plan: Ms. Landaverde is a 59 year old woman with medical history significant for PAF as per records, PSVT status post ablation, TISHA CPAP intolerance, exercise-induced bronchospasm as per records, hypertension, hyperlipidemia, polyarthralgia as per records, PCOS, anxiety/mood disorder, prediabetes admitted to [facility] for sepsis secondary to community acquired pneumonia. #Sepsis 2/2 CAP #Multifocal pneumonia WBC 12.65, HR 110 CTA with RML pneumonia and LLL as well continue ctx and doxy, transition to po in am continue Mucinex continue flutter valve no indications for steroids at this time #Diarrhea resolved stool pcr, suspect viral imodium prn #Small pulm nodule 13mm on imaging, stable, no follow up recommended #PAF/PSVT status post ablation as per records, patient known to [facility] continue home Diltazem #TISHA CPAP intolerance #hypertension continue hctz #hyperlipidemia on statin Rx #anxiety/mood disorder continue hydroxyzine and venlafaxine #prediabetes #obesity bmi 41.8 A1C 5.9% counseled dvt ppx lovenox dispo tomorrow am Admission and Anticipated Discharge Date Admission Date: January 23, 2025 Subjective Reports some improvement, mostly with resolution of diarrhea Did not ambulate much yesterday and reports weakness Physical Exam Constitutional: WD/WN, vitals as above Respiratory: normal respiratory effort, lungs clear to auscultation Cardiovascular: RRR, no murmur, no edema Musculoskeletal: no cyanosis or clubbing, extremities motor strength 5/5 Results & Data Results & Data Vital Signs (Past 12 Hours) Vital Signs Temp Pulse Pulse Resp BP Pulse Ox O2 Del Method 01/25/25 15:50 36.5 C 86 18 120/83 93 Room Air 01/25/25 13:11 105 H 01/25/25 11:36 36.7 C 80 20 159/96 H 94 Room Air 01/25/25 08:00 36.4 C L 81 18 144/89 H 91 Room Air 01/25/25 07:20 Room Air 01/25/25 07:00 76 Laboratory Results Short CBC 01/25/25 Range/Units 09:25 WBC 10.06 (4.8-10.8) K/ul Hgb 14.6 (12.0-16.0) g/dl Hct 43.7 (37.0-47.0) % Plt Count 306 (130-400) K/uL BMP 01/25/25 09:25 Sodium 138 Potassium 3.5 Chloride 101 Carbon Dioxide 27 BUN 13 Creatinine 0.73 Glucose 146 H Calcium 8.9 Medications Administered Home Medications Medication Instructions Recorded Confirmed Last Taken hydroxyzine HCl 25 mg tablet 25 mg PO TID PRN anxiety #30 tabs 03/11/19 01/23/25 08/18/21 cholecalciferol (vitamin D3) 25 1,000 unit PO QAM 11/24/22 01/23/25 01/23/25 mcg (1,000 unit) capsule hydrochlorothiazide 25 mg tablet 25 mg PO DAILY PRN Edema #30 tabs 11/25/22 01/23/25 Unknown diltiazem HCl 180 mg 180 mg PO QAM #90 caps 09/18/24 01/23/25 01/23/25 capsule,extended release 24 hr, controlled albuterol sulfate 90 mcg/actuation 2 puff inhalation DIRECTED PRN 01/23/25 01/23/25 Unknown aerosol inhaler Shortness Of Breath Or Wheezing diphenhydramine HCl 25 mg capsule 25 mg PO HS PRN ITCHINESS 01/23/25 01/23/25 Unknown (Benadryl) multivitamin 1 tab PO DAILY 01/23/25 01/23/25 01/23/25 propranolol 20 mg tablet 20 mg PO TID PRN 01/23/25 01/23/25 Unknown palpitations/HEART RACING rosuvastatin 10 mg tablet (Crestor) 10 mg PO QPM 01/23/25 01/23/25 01/22/25 venlafaxine 37.5 mg 37.5 mg PO DAILY 01/23/25 01/23/25 01/23/25 capsule,extended release 24 hr venlafaxine 75 mg capsule,extended 75 mg PO DAILY 01/23/25 01/23/25 01/23/25 release 24 hr Active Medications Generic Name Dose Route Start Last Admin Trade Name Freq PRN Reason Stop Dose Admin Acetaminophen 650 mg 01/24/25 00:20 01/25/25 13:38 Acetaminophen 325 Mg Tab PO 02/23/25 00:19 650 mg QID PRN Administration pain/fever Albuterol 2.5 mg 01/24/25 19:03 01/24/25 20:13 Albuterol 0.5% Neb Soln 2.5 Mg/0.5 Ml Vial NEB 02/23/25 22:59 2.5 mg Q4R PRN Administration Shortness Of Breath Protocol Diltiazem HCl 180 mg 01/25/25 09:00 01/25/25 09:20 Diltiazem Hcl 180 Mg Capcr PO 02/24/25 08:59 180 mg QAM GREGORIO Administration Doxycycline Hyclate 100 mg 01/24/25 21:00 01/25/25 09:21 Doxycycline Hyclate 100 Mg Cap PO 01/29/25 20:59 100 mg BID GREGORIO Administration Enoxaparin Sodium 40 mg 01/24/25 09:00 01/25/25 09:21 Enoxaparin Inj 40 Mg/0.4 Ml Syr SQ 02/23/25 08:59 40 mg QAM GREGORIO Administration Guaifenesin 600 mg 01/24/25 09:00 01/25/25 09:21 Guaifenesin 600 Mg Tabcr PO 02/23/25 08:59 600 mg Q12 GREGORIO Administration Ceftriaxone Sodium 2,000 mg in 50 mls @ 100 mls/hr 01/24/25 01:00 01/25/25 02:18 Rocephin IV 01/29/25 00:59 Infused Q24H GREGORIO Infusion Promethazine HCl 12.5 mg in 50.5 mls @ 202 mls/hr 01/24/25 00:18 01/24/25 08:10 Phenergan IV 02/23/25 00:17 Infused Q6H PRN Infusion Nausea And Vomiting Multivitamins 1 tab 01/24/25 09:00 01/25/25 09:20 Multivitamin Tab PO 02/23/25 08:59 1 tab DAILY GREGORIO Administration Rosuvastatin Calcium 10 mg 01/24/25 21:00 01/24/25 21:50 Rosuvastatin Calcium 10 Mg Tab PO 02/23/25 20:59 10 mg QPM GREGORIO Administration Saccharomyces Boulardii 250 mg 01/24/25 16:15 01/25/25 09:24 Saccharomyces Boulardii 250 Mg Cap PO 02/23/25 16:14 250 mg DAILY GREGORIO Administration Venlafaxine HCl 37.5 mg 01/24/25 09:00 01/25/25 09:21 Venlafaxine Hcl Xr 37.5 Mg Capxr PO 02/23/25 08:59 37.5 mg DAILY GREGORIO Administration Venlafaxine HCl 75 mg 01/24/25 09:00 01/25/25 09:20 Venlafaxine Hcl Xr 75 Mg Capxr PO 02/23/25 08:59 75 mg DAILY GREGORIO Administration Vitamin D 25 mcg 01/24/25 09:00 01/25/25 09:22 Cholecalciferol 25 Mcg (1000 Units) Tab PO 02/23/25 08:59 25 mcg QAM GREGROIO Administration
[2025-01-25 21:10] LABS: Adenovirus F 40/41 PCR Not Detected (NotDetected); Astrovirus PCR Not Detected (NotDetected); Campylobacter PCR Not Detected (NotDetected); Cryptosporidium PCR Not Detected (NotDetected); Cyclospora cayetanensis PCR Not Detected (NotDetected); Entamoeba histolytica PCR Not Detected (NotDetected); Enteroaggregative E.coli(EAEC) Not Detected (NotDetected); Enteropathogenic E.coli (EPEC) Not Detected (NotDetected); Enterotoxigenic E.coli (ETEC) Not Detected (NotDetected); Giardia lamblia PCR Not Detected (NotDetected); Norovirus GI/GII PCR Not Detected (NotDetected); Plesiomonas shigelloides PCR Not Detected (NotDetected); Rotavirus A PCR Not Detected (NotDetected); Salmonella PCR Not Detected (NotDetected); Sapovirus PCR Not Detected (NotDetected); Shiga-like Toxin E.coli (STEC) Not Detected (NotDetected); Shigella/Enteroinvasive E.coli Not Detected (NotDetected); Vibrio cholerae PCR Not Detected (NotDetected); Vibrio species PCR Not Detected (NotDetected); Yersinia enterocolitica PCR Not Detected (NotDetected)
[2025-01-26 08:12] VITALS: RESP 16; TEMP 97.5
--- NOTE | 2025-01-26 08:31 | Discharge Summary ---
Discharge Summary Date of Service January 26, 2025 Principal Dx & Hospital Course #1 = Principal Diagnosis (1) Sepsis: Ms. Landaverde is a 59 year old woman with medical history significant for PAF as per records, PSVT status post ablation, TISHA CPAP intolerance, exercise-induced bronchospasm as per records, hypertension, hyperlipidemia, polyarthralgia as per records, PCOS, anxiety/mood disorder, prediabetes admitted to [facility] for sepsis secondary to community acquired pneumonia. Sepsis improved and patient with rapid improvement in symptoms with symptom management and antibiotics. On day of discharge, patient reports slight residual cough but overall reports marked improvement. Patient without oxygen requirement. Patient ambulating halls and eating well. #Sepsis 2/2 CAP #Multifocal pneumonia WBC 12.65, HR 110 CTA with RML pneumonia and LLL as well transitioned to po cefuroxime bid and doxycycline bid for 2 more days for total 5 days of abx continue Mucinex x5 more days continue flutter valve no indications for steroids at this time #Diarrhea resolved stool pcr, suspect viral imodium prn #Small pulm nodule 13mm on imaging, stable, no follow up recommended #PAF/PSVT status post ablation as per records, patient known to [facility] continue home Diltazem #TISHA CPAP intolerance #hypertension continue hctz #hyperlipidemia on statin Rx #anxiety/mood disorder continue hydroxyzine and venlafaxine #prediabetes #obesity bmi 41.8 A1C 5.9% counseled Notes For Next Care Provider Medication Changes From Visit cefuroxime bid x 2 more days doxycycline bid x 2 more days Admission HPI Per Admitting Provider History obtained from patient and records. Medical history significant for PAF as per records, PSVT status post ablation, TISHA CPAP intolerance, exercise-induced bronchospasm as per records, hypertension, hyperlipidemia, polyarthralgia as per records, PCOS, anxiety/mood disorder, prediabetes. Last confinement July 2021 for SVT. Few days history of junky cough symptoms with some wheezing and SOB possible sick contacts. Denies aspiration. Chest pain from coughing. No unusual fluid retention. Patient seen at the ER yesterday. Patient discharged home on prednisone Rx for bronchitis. Worsening symptoms today. Pleuritic chest pain. Occasional palpitations. Chills at home. Patient return to ER for evaluation. Medical History as above Surgical History : Knee surgeries, dental surgery, tailbone cyst removal Family History : DM, heart disease Personal/Social history : Non-smoker, no EtOH intake, disabled Admission Exam Per Admitting Provider GENERAL: uncomfortable, pleasant, morbidly obese, no respiratory distress SKIN: Normal color, warm HEENT: [place] palpebral conjunctivae, no ptosis, dry buccal mucosa NECK : Supple, short neck, no tenderness CHEST : Decreased breath sounds, no tenderness HEART : Tachycardic, no obvious murmurs ABDOMEN: Some distention, nontender EXTREMITIES : Minimal LE swelling without tenderness, palpable pulses, no other conspicuous deformities noted NEUROLOGIC : Coherent, no facial asymmetry, no other gross focality Discharge Exam Constitutional WD/WN, vitals as above Respiratory normal respiratory effort, lungs clear to auscultation Cardiovascular RRR, no murmur, no edema Gastrointestinal (Abdomen) normal bowel sounds, soft, nontender, no hepatosplenomegaly Musculoskeletal no cyanosis or clubbing, extremities motor strength 5/5 Updated Medication List Medication Instructions Recorded Confirmed Type hydroxyzine HCl 25 mg tablet 25 mg PO TID PRN anxiety #30 tabs 03/11/19 01/23/25 Rx cholecalciferol (vitamin D3) 25 1,000 unit PO QAM 11/24/22 01/23/25 History mcg (1,000 unit) capsule hydrochlorothiazide 25 mg tablet 25 mg PO DAILY PRN Edema #30 tabs 11/25/22 01/23/25 Rx diltiazem HCl 180 mg 180 mg PO QAM #90 caps 09/18/24 01/23/25 Rx capsule,extended release 24 hr, controlled diphenhydramine HCl 25 mg capsule 25 mg PO HS PRN ITCHINESS 01/23/25 01/23/25 History (Benadryl) multivitamin 1 tab PO DAILY 01/23/25 01/23/25 History propranolol 20 mg tablet 20 mg PO TID PRN 01/23/25 01/23/25 History palpitations/HEART RACING rosuvastatin 10 mg tablet (Crestor) 10 mg PO QPM 01/23/25 01/23/25 History venlafaxine 37.5 mg 37.5 mg PO DAILY 01/23/25 01/23/25 History capsule,extended release 24 hr venlafaxine 75 mg capsule,extended 75 mg PO DAILY 01/23/25 01/23/25 History release 24 hr albuterol sulfate 90 mcg/actuation 2 puff inhalation DIRECTED PRN 01/26/25 Rx aerosol inhaler Shortness Of Breath Or Wheezing #8.5 grams cefuroxime axetil 500 mg tablet 500 mg PO BID 2 days #4 tabs 01/26/25 Rx doxycycline hyclate 100 mg capsule 100 mg PO BID 2 days #4 caps 01/26/25 Rx guaifenesin 600 mg tablet, 600 mg PO Q12 5 days #10 tabs 01/26/25 Rx extended release 12 hr (Mucinex) Hospital Stay Data Consultations 01/23/25 23:45 ED Decision to Admit Stat Diagnostic Imagining Performed 01/23/25 21:11 CT angio chest PE protocol Stat Pending Results Patient Have Any Pending Studies at Discharge: No Discharge Instructions Given to Patient (Per Discharging Provider) You were admitted and noted to have community acquired pneumonia. You improved with antibiotics and conservative management. You will continue antibiotics for two more days: Cefuroxime 500mg 1 tablet two times a day, your next dose is tonight Doxycycline 100mg 1 tablet two times a day, your next dose is tonight Total Time Total Time Spent Total Time Spent (In Minutes): 45
[2025-01-26] MEDS: cefUROXime axetil 500 MG TAB PO SCH (09:47)
[2025-01-26 11:30] VITALS: BP 148/96; O2SAT 91
[2025-01-26 14:27] VITALS: PULSE 112
== END 2025-01-26 14:46 | disposition home or self-care (01) | DRG 871 ==
LOC: ED 20:12 → SUATTDRO 01-24 00:08 → 2N 01-24 00:08

== ENCOUNTER 2025-03-10 13:28 | Inpatient (IN) ==
[2025-03-10] MEDS: METOPROLOL TARTRATE 1 MG/ML VIAL IV STA (13:52)
--- NOTE | 2025-03-10 14:00 | Emergency Department Note ---
Impression & Plan Dyspnea, Tachycardia ED Provider Note Provider: Rusty Conway MD CHIEF COMPLAINT: Short of breath HISTORY OF PRESENT ILLNESS: Patient is a 59-year-old female significant history of recent hospitalization for pneumonia, anxiety, Lyme disease, cardiac arrhythmia, and obesity presenting here today the ambulance from her home. States breathing has improved since her hospitalization here in January. However has been fatigued the last week or so. Occasionally felt that her heart was a little high and did take her as needed propranolol medication last week. Has not noticed palpitations or elevated heart rate today. Feeling more short of breath and near syncopal but did not pass out or fall. Did eat breakfast today. Was in a relatively warm area of the house according to her. States her oxygen level seemed in the 80s at home so she called the ambulance. States she think she might have missed her cholesterol medicine last night but otherwise has been taking her medications. Daughter has been ill with cough and cold symptoms. She denies chest pain or abdominal pain or nausea or vomiting. Little shortness of breath. No significant cough reported. PAST MEDICAL HISTORY: As noted above MEDICATIONS: Reviewed home medications, not on blood thinners SOCIAL HISTORY: Non-smoker PHYSICAL EXAM: GENERAL: alert and oriented in no acute distress on stretcher Head: normocephalic and atraumatic EYES: No injection, discharge or icterus. EOMI. NECK: Trachea midline. Supple. ENT: Mucous membranes pink and moist. LUNGS: Airway patent. No retractions. Breath sounds clear HEART: Regular tachycardic rate and rhythm. No chest wall tenderness ABDOMEN: Soft and non-tender, without guarding or rebound. SKIN: Acyanotic, warm, dry, without rashes EXTREMITIES: Without deformity 1+ bilateral lower extremity edema. NEUROLOGICAL: No focal deficits. No aphasia. No facial droop or slurred speech. EK bpm without acute ST segment elevation or depression with a QTc of 512 and what appears to be regular narrow complex tachycardia/SVT. CONTINUOUS CARDIAC MONITORING: was ordered and showed a heart rate of 130s to 150s bpm in narrow complex tachycardia possible SVT versus atrial flutter Patient's laboratory studies and imaging reviewed. Differential includes Reactive airway disease, pneumonia, pneumothorax, COPD, CHF, infections, cardiac ischemia, pulmonary embolism, musculoskeletal, gastrointestinal, as well as other pathologies. IMPRESSION/MEDICAL DECISION MAKING: Patient found to be in rapid narrow complex tachycardia likely SVT versus alternatively a flutter. Did review record the patient has a history of a several years ago fairly refractory and has had ablation in the distant past. Not on anticoagulation. Placed IV ultrasound-guided IV using sterile gel due to difficult with IV access and given 5 mg IV metoprolol which did slow her heart rate little bit from 150-->135bpm. Patient without chest pain. Not hypoxic here. Does have a little swelling of the legs and question if she may have a bit of fluid overload unsure exactly how long she may have been in this elevated heart rate. She does not have sensation that she is in it. Electrolytes blood work is sent. Chest x-ray ordered. Blood work here without significant anemia leukocytosis. No significant lecture light abnormalities. Normal renal function. No transaminitis. Troponin normal. BNP mildly elevated 196. Chest x-ray without findings of pneumonia, pneumothorax, or severe pulmonary edema. CT angiogram of the chest completed exclude underlying PE or occult pneumonia. Negative respiratory viral panel. Heart rate did improve some with IV metoprolol and seems likely more consistent with flutter with a heart rate fairly steady around 135. Will start on a diltiazem drip and again she does not appear unstable at this point. Will bring in for further care and evaluation. Hospitalist was contacted and patient agreeable with this plan. Will defer any anticoagulation to the hospitalist team. DIAGNOSIS: Shortness of breath, tachycardia DISPOSITION: Hospitalist will evaluate Patient was agreeable with this plan. Critical Care I have personally spent 36 minutes of critical care time in the direct management of this patient. This includes bedside care, interpretation of diagnostic studies, and testing, discussion with consultants, patient, and other required patient management activities. These 36 minutes is in excess of all separately billable procedures. Past Med/Surg History Problem List (Updated 03/10/25 @ 17:08 by Rusty Conway M.D.) Tachycardia (Acute) Dyspnea (Acute) Pneumonia (Acute) Morbid obesity Lung nodule Heart disease Borderline personality disorder Impaired fasting glucose Cardiac dysrhythmia, unspecified (04/06/13) Anxiety and depression Memory impairment Vitamin D deficiency Hyperlipidemia Peripheral edema Knee pain Sleep apnea COULD NOT TOLERATE CPAP Panic disorder (04/06/13) Atrial fibrillation (04/06/13) takes Propranolol as needed > no pacer, no specialist, controlled per pt History of Lyme disease Medical History Medical marijuana use Arthritis Seasonal allergies rare res inh use > only if gets really sick Internal hemorrhoids Abdominal bloating on occasion Supraventricular tachycardia no further issues since ablation Surgical History Hx of total knee replacement S/P Right TKA with Dr Burr on 01-26-23 History of total left knee replacement 11-05-22 S/P L TKA at [facility] with Dr Burr History of colonoscopy History of tooth extraction History of dilatation and curettage History of hysteroscopy Hx of removal of cyst AXILLA AND NECK Hx of oral surgery History of cardiac radiofrequency ablation (RFA) Jul 2021 Family History Grandfather (Paternal) Myocardial infarction Grandfather (Maternal) Stroke Other Cancer Diabetes Heart disease No pertinent family history in first degree relatives Ovarian cancer Denies family history of Prostate cancer Breast cancer Colorectal cancer Social History Smoking Status: Never smoker Tobacco Type: Cigarettes Second Hand Exposure: No; Do You Dip or Chew Tobacco: No; Hx Alcohol Use: No Hx Substance Use: No Preferred Language: [place] Citizen Communication Ability: Effective Visual Impairment: Limited Hearing Ability: Normal [employer] Required: No Beliefs That Will Affect Care: None marital status: Current Living Situation: Family Current Living Situation Comment: lives with daughter and daughter's boyfriend current occupational status: disabled How many Children do You have: 1 Feels Safe at Home: Yes Childhood Exposure to Second-Hand Smoke: Yes Diet: regular caffeine: Yes (coffee) during the past year weight has: remained stable Dental Care, Regularly: No Physical Activity Frequency: 3-4 Times per Week Seatbelt Use: sometimes Sunscreen Use: Yes Assistive Devices: None Allergies Allergies Allergy/AdvReac Type Severity Reaction Status Date / Time Penicillins Allergy Intermediate RASH Verified 03/10/25 15:17 Home Meds Home Medications Medication Instructions Recorded Confirmed cholecalciferol (vitamin D3) 25 1,000 unit PO QAM 11/24/22 03/10/25 mcg (1,000 unit) capsule diphenhydramine HCl 25 mg capsule 25 mg PO HS PRN ITCHINESS 01/23/25 03/10/25 (Benadryl) multivitamin 1 tab PO DAILY 01/23/25 03/10/25 propranolol 20 mg tablet 20 mg PO TID PRN 01/23/25 03/10/25 palpitations/HEART RACING rosuvastatin 10 mg tablet (Crestor) 10 mg PO QPM 01/23/25 03/10/25 venlafaxine 37.5 mg 37.5 mg PO DAILY 01/23/25 03/10/25 capsule,extended release 24 hr venlafaxine 75 mg capsule,extended 75 mg PO DAILY 01/23/25 03/10/25 release 24 hr Previous Rx's Medication Instructions Recorded hydroxyzine HCl 25 mg tablet 25 mg PO TID PRN anxiety #30 tabs 03/11/19 hydrochlorothiazide 25 mg tablet 25 mg PO DAILY PRN Edema #30 tabs 11/25/22 diltiazem HCl 180 mg 180 mg PO QAM #90 caps 09/18/24 capsule,extended release 24 hr, controlled albuterol sulfate 90 mcg/actuation 2 puff inhalation DIRECTED PRN 01/26/25 aerosol inhaler Shortness Of Breath Or Wheezing #8.5 grams Results & Data (ED) Vital Signs Vital Signs - 24 hr 03/10/25 13:15 03/10/25 13:16 03/10/25 13:41 Temperature 36.6 C Temperature Source Oral Pulse Rate 146 H Pulse Rate [Apical] Pulse Rhythm Regular Pulse Strength Normal Respiratory Rate 18 Respiratory Effort / Characteristics Non-Labored Non-Labored Spontaneous Respiratory Depth Normal Normal Respiratory Pattern Regular Regular Blood Pressure 120/86 Blood Pressure [Left Arm] Blood Pressure Mean 97 Blood Pressure Mean [Left Arm] Blood Pressure Position Lying Pulse Oximetry 97 Oxygen Delivery Method Room Air Room Air Room Air Oxygen Flow Rate 0 Sepsis Recent Fever Within 48 Hours No Sepsis New/Unexplained Change in Mental Status No Sepsis Action Taken by Nursing No Action Required 03/10/25 13:52 03/10/25 15:38 03/10/25 16:05 Temperature Temperature Source Pulse Rate 145 H 136 H 138 H Pulse Rate [Apical] Pulse Rhythm Pulse Strength Respiratory Rate Respiratory Effort / Characteristics Respiratory Depth Respiratory Pattern Blood Pressure 120/86 124/70 Blood Pressure [Left Arm] Blood Pressure Mean Blood Pressure Mean [Left Arm] Blood Pressure Position Pulse Oximetry Oxygen Delivery Method Oxygen Flow Rate Sepsis Recent Fever Within 48 Hours Sepsis New/Unexplained Change in Mental Status Sepsis Action Taken by Nursing 03/10/25 16:33 Temperature Temperature Source Pulse Rate Pulse Rate [Apical] 137 H Pulse Rhythm Pulse Strength Respiratory Rate 18 Respiratory Effort / Characteristics Respiratory Depth Respiratory Pattern Blood Pressure Blood Pressure [Left Arm] 114/60 Blood Pressure Mean Blood Pressure Mean [Left Arm] 78 Blood Pressure Position Pulse Oximetry 96 Oxygen Delivery Method Oxygen Flow Rate Sepsis Recent Fever Within 48 Hours Sepsis New/Unexplained Change in Mental Status Sepsis Action Taken by Nursing Laboratory Data 03/10/25 13:52 03/10/25 13:52 Lab Results 03/10/25 03/10/25 Range/Units 13:50 13:52 WBC 10.26 (4.8-10.8) K/ul RBC 4.60 (4.20-5.40) M/uL Hgb 14.2 (12.0-16.0) g/dl Hct 42.4 (37.0-47.0) % MCV 92.2 (80.0-100.0) fL MCH 30.9 (25.0-34.0) pg MCHC 33.5 (32.0-36.0) g/dL RDW Std Deviation 48.5 H (36.4-46.3) fL RDW Coeff of Chaya 14.4 (11.5-14.5) % Plt Count 333 (130-400) K/uL MPV 9.2 L (9.4-12.4) fL Immature Gran % (Auto) 0.5 % Neut % (Auto) 55.5 % Lymph % (Auto) 29.1 % [place] % (Auto) 10.0 % Eos % (Auto) 3.8 % Baso % (Auto) 1.1 % Neut # (Auto) 5.69 (1.40-6.50) K/uL Lymph # (Auto) 2.99 (1.20-3.40) K/uL [place] # (Auto) 1.03 H (0.11-0.59) K/uL Eos # (Auto) 0.39 (0.00-0.50) K/uL Baso # (Auto) 0.11 (0.00-0.20) K/uL Immature Gran # (Auto) 0.05 (0.01-0.20) K/uL PT 10.0 (9.0-12.0) Seconds INR 0.9 (0.9-1.1) APTT 27 (21-31) Seconds PTT Ratio 1.0 Sodium 138 (136-145) mmol/L Potassium 3.5 (3.5-5.1) mmol/L Chloride 102 (98-107) mmol/L Carbon Dioxide 27 (21-32) mmol/L Anion Gap 9 (3-11) BUN 14 (6-23) mg/dl Creatinine 0.87 (0.6-1.2) mg/dl Est Cr Clr Drug Dosing 91.9 ml/min eGFR 77.18 BUN/Creatinine Ratio 16.1 (10-20) Glucose 115 H (70-99(Fasting)) mg/dl Calcium 9.3 (8.6-10.3) mg/dl Magnesium 2.0 (1.7-2.4) mg/dl Total Bilirubin 0.4 (0.2-1.0) mg/dl AST 15 (13-39) U/L ALT 15 (7-52) U/L Alkaline Phosphatase 78 (34-104) U/L Troponin I High Sens 9.3 (0-14) pg/ml B-Natriuretic Peptide 196 H (0-100) pg/ml Total Protein 6.9 (6.0-8.3) gm/dl Albumin 3.9 (3.4-5.0) gm/dl Globulin 3.0 (2.5-4.0) gm/dl Albumin/Globulin Ratio 1.3 (0.9-2) Adenovirus (PCR) Not Detected (NotDetected) B. pertussis DNA (PCR) Not Detected (NotDetected) B.parapertussis DNA PCR Not Detected (NotDetected) C. pneumoniae DNA (PCR) Not Detected (NotDetected) Coronavirus OC43 (PCR) Not Detected (NotDetected) Coronavirus HKU1 (PCR) Not Detected (NotDetected) Coronavirus 229E (PCR) Not Detected (NotDetected) SARS-CoV-2 (PCR) Not Detected (NotDetected) Coronavirus NL63 (PCR) Not Detected (NotDetected) Human Metapneumovir PCR Not Detected (NotDetected) Influenza Type A (PCR) Not Detected (NotDetected) Influenza Type B (PCR) Not Detected (NotDetected) M. pneumoniae (PCR) Not Detected (NotDetected) Parainfluenza 1 (PCR) Not Detected (NotDetected) Parainfluenza 2 (PCR) Not Detected (NotDetected) Parainfluenza 3 (PCR) Not Detected (NotDetected) Parainfluenza 4 (PCR) Not Detected (NotDetected) RSV (PCR) Not Detected (NotDetected) Entero/Rhino (PCR) Not Detected (NotDetected) Administered Medications Diltiazem HCl 125 mg/ Dextrose 125 mls @ 5 mls/hr IV .Q24H GREGORIO; Protocol Stop: 04/09/25 15:29 Last Titration: 03/10/25 16:30 Dose: 5 mg/hr, 5 mls/hr Documented By: DAYANA Co-signed By: ADELITA Titration: 03/10/25 16:08 Dose: 0 mg/hr, 0 mls/hr Documented By: DAYANA Co-signed By: ADELITA Admin: 03/10/25 15:51 Dose: 5 mg/hr, 5 mls/hr Documented By: DAYANA Co-signed By: ADELITA Discontinued Medications Ioversol (Optiray 320 125ml) 115 ml IV ONCE ONE Stop: 03/10/25 14:42 Last Admin: 03/10/25 14:41 Dose: 115 ml Documented By: ISABEL Metoprolol Tartrate (Metoprolol Tartrate 1 Mg/Ml Vial) 5 mg IV NOW STA Stop: 03/10/25 13:42 Last Admin: 03/10/25 13:52 Dose: 5 mg Documented By: AMAN Imaging Data Radiologist's Impression: Chest X-Ray 03/10/25 13:57 Chest radiograph, one view History: Chest pain Comparison: 01/23/2025 Findings: Single AP view of the chest performed. No focal consolidation or pleural effusion. No pneumothorax. The cardiomediastinal silhouette is within normal limits. Normal pulmonary vascularity. No evidence for lymphadenopathy. No visualized bony or soft tissue abnormality. Impression: Normal chest radiograph Electronically signed by David Belcher 03-10-2025 2:45 PM Chest CTA 03/10/25 14:29 CT pulmonary angiogram with IV contrast History: Chest pain COMPARISON: 01/23/2025 TECHNIQUE: CT angiography of the chest was performed without IV contrast followed by IV contrast, including 3D post processing CTA image reconstruction. Dose reduction techniques were achieved by using automatic exposure control and/or adjustment of mA and/or kV according to patient size and/or use of iterative reconstruction technique. FINDINGS: Diagnostic quality: Adequate There is no evidence for pulmonary embolism. The heart is not enlarged. There is no pericardial effusion. There are no abnormally enlarged hilar or mediastinal lymph nodes. The central tracheobronchial tree is clear. Noncalcified juxtapleural pulmonary nodule involving the right posterior costophrenic margin of the posterior basal segment measuring 13 mm. This is stable in size from the prior examination. No follow-up required. The lungs are clear. There is no pleural effusion. Limited visualized upper abdomen. Unchanged cystic lesion in the spleen, measures approximately 2.5 cm. No destructive osseous changes are seen. IMPRESSION: No evidence for pulmonary embolism. Electronically signed by David Belcher 03-10-2025 2:59 PM Discharge Plan Visit Data Chief Complaint: Shortness of Breath/Dyspnea Stated Complaint: SOB ED Provider: Rutsy Conway Discharge Problem: Dyspnea, Tachycardia Patient Disposition: Being Evaluated by Hospitalist Condition: Fair Forms Stand Alone Forms: My [facility] SimPrints Prescriptions Prescriptions: No Action cholecalciferol (vitamin D3) 25 mcg (1,000 unit) capsule 1,000 unit PO QAM diltiazem HCl 180 mg capsule,ext.rel 24h degradable 180 mg PO QAM Qty: 90 1RF hydroxyzine HCl 25 mg tablet 25 mg PO TID PRN (Reason: anxiety) Qty: 30 0RF hydrochlorothiazide 25 mg tablet 25 mg PO DAILY PRN (Reason: Edema) Qty: 30 11RF multivitamin Tablet 1 tab PO DAILY venlafaxine 37.5 mg capsule,extended release 24hr 37.5 mg PO DAILY Rx Instructions: TOTAL DOSE 112.5 MG--TAKES WITH 75 MG CAP. venlafaxine 75 mg capsule,extended release 24hr 75 mg PO DAILY Rx Instructions: TOTAL DOSE 112.5 MG--TAKES WITH 37.5 MG CAP. diphenhydramine HCl [Benadryl] 25 mg Capsule 25 mg PO HS PRN (Reason: ITCHINESS) rosuvastatin [Crestor] 10 mg Tablet 10 mg PO QPM Rx Instructions: UNABLE TO VERIFY THIS MED, PER PT "DID NOT TAKE LAST NIGHT". propranolol 20 mg tablet 20 mg PO TID PRN (Reason: palpitations/HEART RACING) albuterol sulfate 90 mcg/actuation Hfa Aerosol Inhaler 2 puff INHALATION DIRECTED PRN (Reason: Shortness Of Breath Or Wheezing) Qty: 8.5 0RF Referrals Referrals: Philip Hoover MD [Primary Care Provider] -
[2025-03-10 14:07] LABS: Basophils # (auto) 0.11 K/uL (0.00-0.20); Basophils % (auto) 1.1 %; Eosinophils # (auto) 0.39 K/uL (0.00-0.50); Eosinophils % (auto) 3.8 %; Hematocrit (blood only) 42.4 % (37.0-47.0); Hemoglobin 14.2 g/dl (12.0-16.0); Immature Granulocytes # (auto) 0.05 K/uL (0.01-0.20); Immature Granulocytes % (auto) 0.5 %; Lymphocytes # (auto) 2.99 K/uL (1.20-3.40); Lymphocytes % (auto) 29.1 %; Mean Corpuscular Hemoglobin 30.9 pg (25.0-34.0); Mean Corpuscular Hgb Conc 33.5 g/dL (32.0-36.0); Mean Corpuscular Volume 92.2 fL (80.0-100.0); Mean Platelet Volume 9.2 fL (9.4-12.4); Monocytes # (auto) 1.03 K/uL (0.11-0.59); Neutrophils # (auto) 5.69 K/uL (1.40-6.50); Neutrophils % (auto) 55.5 %; Platelet Count 333 K/uL (130-400); RDW Coefficient of Variation 14.4 % (11.5-14.5); RDW Standard Deviation 48.5 fL (36.4-46.3); White Blood Count 10.26 K/ul (4.8-10.8)
[2025-03-10 14:23] LABS: Albumin Globulin Ratio 1.3 (0.9-2); Albumin Level 3.9 gm/dl (3.4-5.0); BUN Creatinine Ratio 16.1 (10-20); Bilirubin,Total 0.4 mg/dl (0.2-1.0); Calcium 9.3 mg/dl (8.6-10.3); Creatinine Clr Calc Pharmacy 91.9 ml/min; Potassium 3.5 mmol/L (3.5-5.1); Total Protein 6.9 gm/dl (6.0-8.3)
[2025-03-10 14:29] LABS: Troponin I High Sensitivity 9.3 pg/ml (0-14)
[2025-03-10 14:33] LABS: INR 0.9 (0.9-1.1); Partial Thromboplastin Time 27 Seconds (21-31)
[2025-03-10] MEDS: OPTIRAY 320 125ml IV ONE (14:41)
--- NOTE | 2025-03-10 14:45 | XRay Report ---
Chest radiograph, one view History: Chest pain Comparison: 01/23/2025 Findings: Single AP view of the chest performed. No focal consolidation or pleural effusion. No pneumothorax. The cardiomediastinal silhouette is within normal limits. Normal pulmonary vascularity. No evidence for lymphadenopathy. No visualized bony or soft tissue abnormality. Impression: Normal chest radiograph Electronically signed by David Belcher 03-10-2025 2:45 PM
[2025-03-10 14:55] LABS: Adenovirus PCR Not Detected (NotDetected); Bordetella parapertussis PCR Not Detected (NotDetected); Bordetella pertussis PCR Not Detected (NotDetected); Chlamydia pneumoniae PCR Not Detected (NotDetected); Coronavirus 229E PCR Not Detected (NotDetected); Coronavirus CoV-2 (COVID19)PCR Not Detected (NotDetected); Coronavirus HKU1 PCR Not Detected (NotDetected); Coronavirus NL63 PCR Not Detected (NotDetected); Coronavirus OC43PCR Not Detected (NotDetected); Human Metapneumovirus PCR Not Detected (NotDetected); Influenza A PCR Not Detected (NotDetected); Influenza B PCR Not Detected (NotDetected); Mycoplasma pneumoniae PCR Not Detected (NotDetected); Parainfluenza Virus 1 PCR Not Detected (NotDetected); Parainfluenza Virus 2 PCR Not Detected (NotDetected); Parainfluenza Virus 3 PCR Not Detected (NotDetected); Parainfluenza Virus 4 PCR Not Detected (NotDetected); Respiratory Syncytial VirusPCR Not Detected (NotDetected); Rhinovirus/Enterovirus PCR Not Detected (NotDetected)
--- NOTE | 2025-03-10 15:00 | CT Scan Report ---
CT pulmonary angiogram with IV contrast History: Chest pain COMPARISON: 01/23/2025 TECHNIQUE: CT angiography of the chest was performed without IV contrast followed by IV contrast, including 3D post processing CTA image reconstruction. Dose reduction techniques were achieved by using automatic exposure control and/or adjustment of mA and/or kV according to patient size and/or use of iterative reconstruction technique. FINDINGS: Diagnostic quality: Adequate There is no evidence for pulmonary embolism. The heart is not enlarged. There is no pericardial effusion. There are no abnormally enlarged hilar or mediastinal lymph nodes. The central tracheobronchial tree is clear. Noncalcified juxtapleural pulmonary nodule involving the right posterior costophrenic margin of the posterior basal segment measuring 13 mm. This is stable in size from the prior examination. No follow-up required. The lungs are clear. There is no pleural effusion. Limited visualized upper abdomen. Unchanged cystic lesion in the spleen, measures approximately 2.5 cm. No destructive osseous changes are seen. IMPRESSION: No evidence for pulmonary embolism. Electronically signed by David Belcher 03-10-2025 2:59 PM
[2025-03-10] MEDS ORDERED: STAT IV Infusion **Titration per Protocol STA (15:18)
[2025-03-10] MEDS: dilTIAZem HCL 125 MG in DEXTROSE 5% 100 ML IV SCH (15:51)
--- NOTE | 2025-03-10 16:07 | History & Physical Report ---
Date of Service March 10, 2025 Assessment & Plan (1) Supraventricular tachycardia: Plan Assessment/plan Supraventricular tachycardia Patient presents with shortness of breath and fatigue Found to have SVT; prior history of same status post ablation in the 125. Hospitalized previously in 2020 for same. CTA chestno acute finding Patient started on Cardizem drip in ED; continue. Will get cardiology evaluation; appreciate recommendations Continue to monitor on telemetry History of OSACPAP intolerant Hypertensioncontinue hydrochlorothiazide Hyperlipidemiacontinue on statin Anxiety/mood disordercontinue on hydroxyzine and venlafaxine DVT prophylaxis heparin Full code Time spent evaluating patient, direct bedside care, chart review, placing orders, interpretation of diagnostic studies, discussion with consultants, patient, and family members, as well as other required patient management activities is 75 minutes Please note the above document was generated using voice recognition software. It may contain grammatical, syntax or spelling errors. Any formal questions or concerns about the content, text or information contained within the body of this dictation should be directly addressed to the provider for clarification History of Present Illness Primary Care Provider: Philip Hoover MD History obtained from chart review and interview with the patient Past medical history of hyperlipidemia, paroxysmal SVT status post ablation on Cardizem, TISHA, depression, Patient presented to the ED with complaints of shortness of breath and fatigue for the last 1 week. She also reports palpitation for which she took her as needed propranolol. Patient also reports increasing shortness of breath and near syncopal episode as well earlier in the day. History of AV zan reentrant tachycardia; ablation in 2013. Patient was admitted with SVT in July 2021; is currently on Cardizem and as needed propranolol. On presentation to the ED, she was normotensive, afebrile and saturating well in room air. EKG on admission showed SVT with rate of 154 bpm; patient was given 5 mg of IV metoprolol which improved the heart rate to 135. Patient was started on Cardizem drip and was referred for admission. Allergies Allergy/AdvReac Type Severity Reaction Status Date / Time Penicillins Allergy Intermediate RASH Verified 03/10/25 15:17 Home Medications Medication Instructions Recorded Confirmed Type hydroxyzine HCl 25 mg tablet 25 mg PO TID PRN anxiety #30 tabs 03/11/19 03/10/25 Rx cholecalciferol (vitamin D3) 25 1,000 unit PO QAM 11/24/22 03/10/25 History mcg (1,000 unit) capsule hydrochlorothiazide 25 mg tablet 25 mg PO DAILY PRN Edema #30 tabs 11/25/22 03/10/25 Rx diltiazem HCl 180 mg 180 mg PO QAM #90 caps 09/18/24 03/10/25 Rx capsule,extended release 24 hr, controlled diphenhydramine HCl 25 mg capsule 25 mg PO HS PRN ITCHINESS 01/23/25 03/10/25 History (Benadryl) multivitamin 1 tab PO DAILY 01/23/25 03/10/25 History propranolol 20 mg tablet 20 mg PO TID PRN 01/23/25 03/10/25 History palpitations/HEART RACING rosuvastatin 10 mg tablet (Crestor) 10 mg PO QPM 01/23/25 03/10/25 History venlafaxine 37.5 mg 37.5 mg PO DAILY 01/23/25 03/10/25 History capsule,extended release 24 hr venlafaxine 75 mg capsule,extended 75 mg PO DAILY 01/23/25 03/10/25 History release 24 hr albuterol sulfate 90 mcg/actuation 2 puff inhalation DIRECTED PRN 01/26/25 03/10/25 Rx aerosol inhaler Shortness Of Breath Or Wheezing #8.5 grams Past Med/Surg History Problem List (Updated 03/10/25 @ 15:30 by Rusty Conway M.D.) Atrial flutter with rapid ventricular response (Acute) Dyspnea (Acute) Pneumonia (Acute) Morbid obesity Lung nodule Heart disease Borderline personality disorder Impaired fasting glucose Cardiac dysrhythmia, unspecified (04/06/13) Anxiety and depression Memory impairment Vitamin D deficiency Hyperlipidemia Peripheral edema Knee pain Sleep apnea COULD NOT TOLERATE CPAP Panic disorder (04/06/13) Atrial fibrillation (04/06/13) takes Propranolol as needed > no pacer, no specialist, controlled per pt History of Lyme disease Medical History Medical marijuana use Arthritis Seasonal allergies rare res inh use > only if gets really sick Internal hemorrhoids Abdominal bloating on occasion Supraventricular tachycardia no further issues since ablation Surgical History Hx of total knee replacement S/P Right TKA with Dr Burr on 01-26-23 History of total left knee replacement 11-05-22 S/P L TKA at [facility] with Dr Burr History of colonoscopy History of tooth extraction History of dilatation and curettage History of hysteroscopy Hx of removal of cyst AXILLA AND NECK Hx of oral surgery History of cardiac radiofrequency ablation (RFA) Jul 2021 Family History Grandfather (Paternal) Myocardial infarction Grandfather (Maternal) Stroke Other Cancer Diabetes Heart disease No pertinent family history in first degree relatives Ovarian cancer Denies family history of Prostate cancer Breast cancer Colorectal cancer Social History Smoking Status: Never smoker Tobacco Type: Cigarettes Second Hand Exposure: No; Do You Dip or Chew Tobacco: No; Hx Alcohol Use: No Hx Substance Use: No Preferred Language: Senegalese Communication Ability: Effective Visual Impairment: Limited Hearing Ability: Normal Coffee Weigher Required: No Beliefs That Will Affect Care: None marital status: Current Living Situation: Family Current Living Situation Comment: lives with daughter and daughter's boyfriend current occupational status: disabled How many Children do You have: 1 Feels Safe at Home: Yes Childhood Exposure to Second-Hand Smoke: Yes Diet: regular caffeine: Yes (coffee) during the past year weight has: remained stable Dental Care, Regularly: No Physical Activity Frequency: 3-4 Times per Week Seatbelt Use: sometimes Sunscreen Use: Yes Assistive Devices: None Physical Exam Physical Exam: On physical examination; Constitutional: WD/WN, vitals as above, NAD, sitting up in bed, pleasant, conversing easily Neck: trachea midline, no thyromegaly normal visual inspection Respiratory: normal respiratory effort, lungs clear to auscultation, no wheeze, rales, rhonchi. Normal insp/exp effort, no accessory muscle use Cardiovascular: RRR, no murmur, no edema Vessels: no JVD or carotid bruit Chest: normal inspection of chest Abdomen: normal bowel sounds, soft, nontender, no hepatosplenomegaly Musculoskeletal: no cyanosis or clubbing, extremities motor strength 5/5 Skin: no rashes, warm and dry normal turgor Neurologic: PERRL, EOMI, accommodation nl, no face palsy, no dysarthria CN's II- XI intact bilaterally and moves all extremities Psychiatric: A+Ox3, euthymic affect Results & Data Results & Data Vital Signs (Past 12 Hours) Vital Signs Temp Pulse Resp BP Pulse Ox O2 Del Method O2 Flow Rate 03/10/25 16:05 138 H 03/10/25 15:38 136 H 124/70 03/10/25 13:52 145 H 120/86 03/10/25 13:41 Room Air 03/10/25 13:16 Room Air 0 03/10/25 13:15 36.6 C 146 H 18 120/86 97 Room Air
[2025-03-10] MEDS ORDERED: ACETAMINOPHEN 325 MG TAB PO PRN (16:35)
[2025-03-10] MEDS ORDERED: POLYETHYLENE (MIRALAX) 17 GM PACK PO PRN (16:35)
[2025-03-10] MEDS ORDERED: ALUMINUM/MAGNESIUM SUSP 30 ML UDC PO PRN (16:35)
[2025-03-10 19:45] LABS: Appearance Urine Clear (Clear); Bacteria Urine Automated None Seen (None Seen); Bilirubin Urine Negative (Negative); Blood Urine Negative (Negative); Cast Urine Automated 0-2 /lpf (0-2); Color Urine Yellow; Epithelial Cell Urine Auto 0-2 /hpf (0-2); Glucose Urine UA Negative (Negative); Ketones Urine Negative (Negative); Leukocyte Esterase Urine Trace (Negative); Nitrite Urine Negative (Negative); Protein Urine Negative (Negative); RBC Urine Automated 0-2 /hpf (0-2); Specific Gravity Urine 1.042 (1.000-1.030); Urobilinogen Urine Negative (Negative); WBC Urine Automated 0-5 /hpf (0-5); pH Urine 6.5 (4.5-7.5)
[2025-03-10] MEDS: ROSUVASTATIN CALCIUM 10 MG TAB PO SCH (20:47)
[2025-03-11 06:06] LABS: BUN Creatinine Ratio 17.5 (10-20); Calcium 8.7 mg/dl (8.6-10.3); Potassium 3.6 mmol/L (3.5-5.1)
[2025-03-11 07:25] LABS: Basophils # (auto) 0.09 K/uL (0.00-0.20); Basophils % (auto) 1.2 %; Eosinophils # (auto) 0.43 K/uL (0.00-0.50); Eosinophils % (auto) 5.5 %; Hematocrit (blood only) 43.3 % (37.0-47.0); Immature Granulocytes # (auto) 0.06 K/uL (0.01-0.20); Immature Granulocytes % (auto) 0.8 %; Lymphocytes # (auto) 1.66 K/uL (1.20-3.40); Lymphocytes % (auto) 21.4 %; Mean Corpuscular Hemoglobin 30.4 pg (25.0-34.0); Mean Corpuscular Hgb Conc 32.3 g/dL (32.0-36.0); Mean Corpuscular Volume 94.1 fL (80.0-100.0); Mean Platelet Volume 9.1 fL (9.4-12.4); Monocytes # (auto) 0.73 K/uL (0.11-0.59); Monocytes % (auto) 9.4 %; Neutrophils # (auto) 4.78 K/uL (1.40-6.50); Neutrophils % (auto) 61.7 %; Platelet Count 308 K/uL (130-400); RDW Coefficient of Variation 14.5 % (11.5-14.5); RDW Standard Deviation 50.1 fL (36.4-46.3); White Blood Count 7.75 K/ul (4.8-10.8)
[2025-03-11] MEDS: hydrOXYzine HCl 25 MG TAB PO PRN (07:46)
[2025-03-11] MEDS: CHOLECALCIFEROL 25 MCG (1000 UNITS) TAB PO SCH (07:46)
[2025-03-11] MEDS: VENLAFAXINE HCL XR 75 MG CAPXR PO SCH (07:46)
[2025-03-11] MEDS: hydroCHLOROthiazide 25 MG TAB PO PRN (07:46)
[2025-03-11] MEDS: dilTIAZem HCL 180 MG CAPCR PO SCH (07:46)
[2025-03-11] MEDS: MULTIVITAMIN TAB PO SCH (07:46)
[2025-03-11] MEDS: VENLAFAXINE HCL XR 37.5 MG CAPXR PO SCH (07:47)
[2025-03-11] MEDS: POTASSIUM CHLORIDE CRTAB 20 MEQ TABCR PO STA (08:27)
--- NOTE | 2025-03-11 11:52 | Cardiology Consultation ---
Date of Consultation March 11, 2025 Assessment & Plan (1) Atrial fibrillation: (2) Supraventricular tachycardia: Plan 1. Atrial fibrillation/flutter: Her chart indicates a history of atrial fibrillation or flutter, however I do not see good documentation of that and I do not think that is a significant finding. Her SVT has been diagnosed on occasion as atrial flutter but I do not believe that it is. If she would develop atrial fibrillation or flutter we would have to consider anticoagulation. 2. 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 She is surprisingly asymptomatic and it and does not recall plans for further ablation when she last presented with SVT. I think it would be a good idea to control her arrhythmia better and I think ablation is the best option. I believe her current arrhythmia is AV zan reentry since it looks very similar to 2020 when it was identified at electrophysiologic study to be AV zan reentry. We may be able to do an ablation in the near future but certainly not in the next day or 2 and I would like to try to control her rhythm. Cardioversion is not an option as she converted on her own with recurrence of short time later. I am going to start flecainide, I am going to s tart a somewhat high dose of 150 mg twice a day since she is on the monitor and I would like to try to get her to convert relatively soon. She is on IV and oral diltiazem, I am going to discontinue the IV (which is not working) and continue oral. History of Present Illness Reason for Consultation: SVT Attending Physician: Danielle Hammonds MD History of Present Illness This is a 55-year-old woman with a history of SVT having previously undergone slow pathway modification in 2013. Since her ablation she has had some recurrent episodes of tachycardia that seemed to be controlled with p.r.n. use of beta- blockade and occasional vagal maneuvers. She presented with symptoms of palpitations and rapid heartbeat in July 2021. She states that these symptoms were somewhat intermittent in nature but generally sustained over several days. She had an element of dyspnea in some mild chest discomfort. She did not report overt dizziness or presyncope. She was discovered to have a supraventricular tachycardia that did not respond to several attempts at adenosine administration. She had electrophysiologic study performed on August 18, [address] Andrea, the tachycardia could be induced and terminated and appeared to be AV zan reentry. It was felt that this would be amenable to repeat ablation but she was discharged on increased diltiazem (180 mg daily). Of note her chart lists atrial fibrillation in [address] and an unspecified arrhythmia in 2013 in another, she is not on anticoagulation and I do not see recent identification of atrial fibrillation. This may come from speculation that her arrhythmia was atrial flutter. She presented to the emergency room with shortness of breath and pneumonia on January 23, 2025 and was hospitalized for 3 days, that appears to have resolved but she presented to the emergency room again on March 10, 2025 with shortness of breath. She had not noticed palpitations or an elevated heart rate however on presentation was in SVT at 150 bpm. This was likely AV zan reentry versus atrial flutter. She was admitted and started on intravenous diltiazem in addition to oral diltiazem 180 mg daily. This did not do much to control the rate during SVT but she did convert to sinus rhythm spontaneously at 1906 on March 10, 2025. She remained in sinus rhythm (with a good heart rate) until 0924 this morning when she went back into a similar tachycardia. Repeat el ectrocardiography suggests the same arrhythmia which is probably SVT. At the time of my evaluation she is laying supine in bed and feeling well. She is not having any symptoms, even knowing that she is in the SVT at the time of my evaluation. She is not having palpitations, shortness of breath, lightheadedness or dizziness (although supine). Perhaps with activity she would feel short of breath with this rhythm but at rest she does not feel it. Allergies Allergy/AdvReac Type Severity Reaction Status Date / Time Penicillins Allergy Intermediate RASH Verified 03/10/25 15:17 Home Medications Medication Instructions Recorded Confirmed Type hydroxyzine HCl 25 mg tablet 25 mg PO TID PRN anxiety #30 tabs 03/11/19 03/10/25 Rx cholecalciferol (vitamin D3) 25 1,000 unit PO QAM 11/24/22 03/10/25 History mcg (1,000 unit) capsule hydrochlorothiazide 25 mg tablet 25 mg PO DAILY PRN Edema #30 tabs 11/25/22 03/10/25 Rx diltiazem HCl 180 mg 180 mg PO QAM #90 caps 09/18/24 03/10/25 Rx capsule,extended release 24 hr, controlled diphenhydramine HCl 25 mg capsule 25 mg PO HS PRN ITCHINESS 01/23/25 03/10/25 History (Benadryl) multivitamin 1 tab PO DAILY 01/23/25 03/10/25 History propranolol 20 mg tablet 20 mg PO TID PRN 01/23/25 03/10/25 History palpitations/HEART RACING rosuvastatin 10 mg tablet (Crestor) 10 mg PO QPM 01/23/25 03/10/25 History venlafaxine 37.5 mg 37.5 mg PO DAILY 01/23/25 03/10/25 History capsule,extended release 24 hr venlafaxine 75 mg capsule,extended 75 mg PO DAILY 01/23/25 03/10/25 History release 24 hr albuterol sulfate 90 mcg/actuation 2 puff inhalation DIRECTED PRN 01/26/25 Rx aerosol inhaler Shortness Of Breath Or Wheezing #8.5 grams Patient History Medical History Sepsis Failure of outpatient treatment Leukocytosis SOB (shortness of breath) Medical marijuana use Arthritis Seasonal allergies rare res inh use > only if gets really sick Internal hemorrhoids Abdominal bloating on occasion Supraventricular tachycardia no further issues since ablation Surgical History Hx of total knee replacement S/P Right TKA with Dr Burr on 01-26-23 History of total left knee replacement 11-05-22 S/P L TKA at [facility] with Dr Burr History of colonoscopy History of tooth extraction History of dilatation and curettage History of hysteroscopy Hx of removal of cyst AXILLA AND NECK Hx of oral surgery History of cardiac radiofrequency ablation (RFA) Jul 2021 Family History Grandfather (Paternal) Myocardial infarction Grandfather (Maternal) Stroke Other Cancer Diabetes Heart disease No pertinent family history in first degree relatives Ovarian cancer Denies family history of Prostate cancer Breast cancer Colorectal cancer Social History Smoking Status: Never smoker Tobacco Type: Cigarettes Second Hand Exposure: No; Do You Dip or Chew Tobacco: No; Hx Alcohol Use: No Hx Substance Use: No Preferred Language: Welsh Communication Ability: Effective Visual Impairment: Limited Hearing Ability: Normal 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 Beliefs That Will Affect Care: None marital status: Current Living Situation: Family Current Living Situation Comment: lives with daughter and daughter's boyfriend current occupational status: disabled How many Children do You have: 1 Other Information That Helps Us Care for You: No Feels Safe at Home: Yes Safety Concerns: Feels Safe At This Time Childhood Exposure to Second-Hand Smoke: Yes Diet: regular caffeine: Yes (coffee) during the past year weight has: remained stable Dental Care, Regularly: No Physical Activity Frequency: 3-4 Times per Week Seatbelt Use: sometimes Sunscreen Use: Yes Assistive Devices: None Review of Systems Review of Systems: All systems reviewed & are unremarkable except as noted in HPI & below Physical Exam Physical Exam: Constitutional: Alert, cooperative and in no distress. HEENT: Unremarkable Neck: No jugular venous distention, carotid pulses are normal and equal bilaterally without bruits. Pulmonary: Clear to auscultation bilaterally. Cardiac: Regular rapid rhythm with no murmur, gallop or rub. Abdomen: Soft, nontender with normal bowel sounds. Extremities: No edema. Neurologic: No focal findings. Gait was not tested. Skin: No rash, ecchymoses or petechiae. Results & Data Vital Signs (Past 12 Hours) Vital Signs Temp Pulse Pulse Resp BP Pulse Ox O2 Del Method 03/11/25 11:43 104/74 03/11/25 10:47 93/62 L 03/11/25 10:34 36.5 C 130 H 18 90/64 L 95 Room Air 03/11/25 10:15 107/81 03/11/25 08:02 36.6 C 84 18 119/85 94 Room Air 03/11/25 07:20 78 03/11/25 03:26 36.4 C L 80 18 101/69 94 Room Air Laboratory Results Cardiac Enzymes 03/10/25 Range/Units 13:52 AST 15 (13-39) U/L Troponin I High Sens 9.3 (0-14) pg/ml B-Natriuretic Peptide 196 H (0-100) pg/ml Coagulation 03/10/25 Range/Units 13:52 PT 10.0 (9.0-12.0) Seconds APTT 27 (21-31) Seconds B-Natriuretic Peptide 196 H (0-100) pg/ml CBC 03/10/25 03/11/25 03/11/25 Range/Units 13:52 05:34 07:00 WBC 10.26 Cancelled 7.75 (4.8-10.8) K/ul RBC 4.60 Cancelled 4.60 (4.20-5.40) M/uL Hgb 14.2 Cancelled 14.0 (12.0-16.0) g/dl Hct 42.4 Cancelled 43.3 (37.0-47.0) % Plt Count 333 Cancelled 308 (130-400) K/uL Neut # (Auto) 5.69 Cancelled 4.78 (1.40-6.50) K/uL Lymph # (Auto) 2.99 Cancelled 1.66 (1.20-3.40) K/uL [place] # (Auto) 1.03 H Cancelled 0.73 H (0.11-0.59) K/uL Eos # (Auto) 0.39 Cancelled 0.43 (0.00-0.50) K/uL Baso # (Auto) 0.11 Cancelled 0.09 (0.00-0.20) K/uL Comprehensive Metabolic Panel 03/10/25 03/11/25 Range/Units 13:52 05:34 Sodium 138 138 (136-145) mmol/L Potassium 3.5 3.6 (3.5-5.1) mmol/L Chloride 102 104 (98-107) mmol/L Carbon Dioxide 27 25 (21-32) mmol/L BUN 14 14 (6-23) mg/dl Creatinine 0.87 0.80 (0.6-1.2) mg/dl Glucose 115 H 108 H (70-99(Fasting)) mg/dl Calcium 9.3 8.7 (8.6-10.3) mg/dl AST 15 (13-39) U/L ALT 15 (7-52) U/L Alkaline Phosphatase 78 (34-104) U/L Total Protein 6.9 (6.0-8.3) gm/dl Albumin 3.9 (3.4-5.0) gm/dl Intake and Output 03/10/25 03/11/25 03/11/25 22:59 06:59 14:59 Intake Total 30.167 / 30.167 5.333 / 5.333 Output Total 300 / 300 Balance -269.833 / -269.833 5.333 / 5.333 Intake: IV 30.167 / 30.167 5.333 / 5.333 dilTIAZem HCL 125 mg In 30.167 / 30.167 5.333 / 5.333 Dextrose 5% 100 ml @ 5 MG/HR 5 mls/hr IV .Q24H GREGORIO Rx#: [id number] Output: Urine 300 / 300 Other: # Unmeasured Voids 1 1 Weight 121.2 kg Weight Measurement Method Built in [facility] Diagnostic Findings Telemetry: SVT and sinus tachycardia as noted in the HPI. PG Care Time/CCT Total # of Minutes Spent Total Time Spent with Patient: Total time spent is greater than 50% in coordination of care (as documented) at patient's floor/unit and/or counseling patient: Coding Level of Care Code 29521 INT INP/OBS CARE 3/75MIN Diagnoses Atrial fibrillation I48.91 Supraventricular tachycardia I47.1
[2025-03-11] MEDS: SODIUM CHLORIDE 0.9% 1,000 ML IV SCH (11:57)
--- NOTE | 2025-03-11 11:57 | Hospitalist Progress Note ---
Date of Service March 11, 2025 Assessment & Plan (1) Supraventricular tachycardia: Plan 59 yo F w/ PMH of hyperlipidemia, AV zan reentrant tachycardia s/p ablation in 2013, paroxysmal SVT on Cardizem and prn propanolol, TISHA, depression, PCOS, generalized OA, depression w/ anxiety, s/p bl TKR presents to ED 03/10 w/ co shortness of breath and fatigue for the last 1 week. Also reported occasional palpitation for which she took her prn metoprolol. On the day of arrival, she h ad worsening sob and near syncopal episode but didn't feel palpitation. EKG on admission showed SVT with rate of 154 bpm; patient was given 5 mg of IV metoprolol which improved the heart rate to 135. Patient was started on Cardizem drip and was referred for admission. Supraventricular tachycardia Patient presents with shortness of breath and fatigue Found to have SVT; prior history of same status post ablation in 2013. Hospitalized previously in 2020 for same. CTA chestno acute finding Patient started on Cardizem drip in ED; converted to nsr about 7 am today and again flipped back to SVT around 0924 am. Appreciate cardiology evaluation, dc cardizem drip, c/w home cardizem. d/w cardio, likely SVT and not aflutter, plan for flecainide for now w/ ablation in near future, will add ivf. await echo. Continue to monitor on telemetry History of OSACPAP intolerant Hypertensioncontinue hydrochlorothiazide Hyperlipidemiacontinue on statin Anxiety/mood disordercontinue on hydroxyzine and venlafaxine DVT prophylaxis heparin Full code Please note the above document was generated using voice recognition software. It may contain grammatical, syntax or spelling errors. Any formal questions or concerns about the content, text or information contained within the body of this dictation should be directly addressed to the provider for clarification Admission and Anticipated Discharge Date Admission Date: March 10, 2025 Subjective Patient was seen and examined at bedside. Patient was lying in bed, on room air, NAD, resting comfortably. Patient converted to sinus rhythm around 7 AM, denies any chest pain or shortness of breath or sore throat or cough or nausea or vomiting or diarrhea or pain and burning while passing urine. Patient reports feeling better. Physical Exam Physical Exam: Constitutional: WD/WN, NAD, pleasant, conversing easily Neck: trachea midline, no thyromegaly normal visual inspection Respiratory: normal respiratory effort, lungs clear to auscultation, no wheeze, rales, rhonchi. Normal insp/exp effort, no accessory muscle use Cardiovascular: RRR, no murmur, no edema Vessels: no JVD or carotid bruit Chest: normal inspection of chest Abdomen: normal bowel sounds, soft, nontender, no hepatosplenomegaly Musculoskeletal: no cyanosis or clubbing, extremities motor strength 5/5 Skin: no rashes, warm and dry normal turgor Neurologic: PERRL, EOMI, accommodation nl, no face palsy, no dysarthria CN's II- XI intact bilaterally and moves all extremities Psychiatric: A+Ox3, euthymic affect Results & Data Results & Data Vital Signs (Past 12 Hours) Vital Signs Temp Pulse Pulse Resp BP Pulse Ox O2 Del Method 03/11/25 11:43 104/74 03/11/25 10:47 93/62 L 03/11/25 10:34 36.5 C 130 H 18 90/64 L 95 Room Air 03/11/25 10:15 107/81 03/11/25 08:02 36.6 C 84 18 119/85 94 Room Air 03/11/25 07:20 78 03/11/25 03:26 36.4 C L 80 18 101/69 94 Room Air
[2025-03-11] MEDS: FLECAINIDE ACETATE 100 MG TABLET PO SCH (13:51)
[2025-03-12 07:12] LABS: Hematocrit (blood only) 43.7 % (37.0-47.0); Hemoglobin 14.3 g/dl (12.0-16.0); Mean Corpuscular Hemoglobin 30.9 pg (25.0-34.0); Mean Corpuscular Hgb Conc 32.7 g/dL (32.0-36.0); Mean Corpuscular Volume 94.4 fL (80.0-100.0); Platelet Count 303 K/uL (130-400); RDW Coefficient of Variation 14.4 % (11.5-14.5); RDW Standard Deviation 49.8 fL (36.4-46.3); Red Blood Count 4.63 M/uL (4.20-5.40); White Blood Count 8.25 K/ul (4.8-10.8)
[2025-03-12 07:25] LABS: BUN Creatinine Ratio 15.4 (10-20); Calcium 9.1 mg/dl (8.6-10.3); Magnesium 1.9 mg/dl (1.7-2.4); Phosphorus 3.5 mg/dl (2.5-4.9); Potassium 3.9 mmol/L (3.5-5.1)
[2025-03-12 11:38] VITALS: BP 146/95; RESP 20; TEMP 97.7; O2SAT 95
--- NOTE | 2025-03-12 11:44 | Cardiology Progress Note ---
Date of Service March 12, 2025 Assessment & Plan (1) Atrial fibrillation: (2) Supraventricular tachycardia: Plan 1. Atrial fibrillation/flutter: Her chart indicates a history of atrial fibrillation or flutter, however I do not see good documentation of that and I do not think that is a significant finding. Her SVT has been diagnosed on occasion as atrial flutter but I do not believe that it is. If she would develop atrial fibrillation or flutter we would have to consider anticoagulation. 2. 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 She is surprisingly asymptomatic in it and does not recall plans for further ablation when she last presented with SVT several years ago. I think it would be a good idea to control her arrhythmia better and I think ablation is the best option. I believe her current arrhythmia is AV zan reentry since it looks very similar to 2020 when it was identified at electrophysiologic study to be AV zan reentry. We may be able to do an ablation in the near future but I would like to try to control her rhythm with medications if possible for now. Cardioversion is not an option as she converted on her own with recurrence of short time later. I did start flecainide yesterday, I started a somewhat high dose of 150 mg twice a day since she is on the monitor and I wanted to try to get her to convert relatively quickly. It appears to have been successful although I cannot be sure that it did not convert on its own. With your QT interval somewhat prolonged I am going to reduce the dose to 100 mg twice a day now as she has remained in sinus rhythm. She is on oral diltiazem which I am going to continue. Admission and Anticipated Discharge Date Admission Date: March 10, 2025 Subjective She is feeling well today, she is out of bed and sitting at her bedside today. She has had no sensation of tachycardia since yesterday, even then she did not feel her SVT. She has been tolerating the flecainide well since yesterday without side effects. Physical Exam Physical Exam: Constitutional: Alert, cooperative and in no distress. HEENT: Unremarkable Neck: No jugular venous distention, carotid pulses are normal and equal bilaterally without bruits. Pulmonary: Clear to auscultation bilaterally. Cardiac: Regular rhythm with no murmur, gallop or rub. Abdomen: Soft, nontender with normal bowel sounds. Extremities: No edema. Neurologic: No focal findings. Gait was not tested. Skin: No rash, ecchymoses or petechiae. Results & Data Vital Signs (Past 12 Hours) Vital Signs Temp Pulse Resp BP Pulse Ox O2 Del Method 03/12/25 11:37 36.5 C 93 H 20 146/95 H 95 Room Air 03/12/25 08:08 36.6 C 103 H 146/85 H 94 Room Air 03/12/25 03:22 36.6 C 80 17 131/84 91 Room Air Laboratory Results CBC 03/12/25 Range/Units 06:53 WBC 8.25 (4.8-10.8) K/ul RBC 4.63 (4.20-5.40) M/uL Hgb 14.3 (12.0-16.0) g/dl Hct 43.7 (37.0-47.0) % Plt Count 303 (130-400) K/uL Comprehensive Metabolic Panel 03/12/25 Range/Units 06:53 Sodium 138 (136-145) mmol/L Potassium 3.9 (3.5-5.1) mmol/L Chloride 103 (98-107) mmol/L Carbon Dioxide 27 (21-32) mmol/L BUN 14 (6-23) mg/dl Creatinine 0.91 (0.6-1.2) mg/dl Glucose 145 H (70-99(Fasting)) mg/dl Calcium 9.1 (8.6-10.3) mg/dl Intake and Output 03/11/25 03/12/25 03/12/25 22:59 06:59 14:59 Intake Total 0 / 1088.333 750 / 1088.333 Balance 0 / 1088.333 750 / 1088.333 Intake: IV 0 / 338.333 Sodium Chloride 0.9% 1,000 ml @ 0 / 213.333 100 mls/hr IV .Q10H GREGORIO Rx#: [id number] Oral 750 / 750 Other: # Unmeasured Voids 1 Weight 121.4 kg Weight Measurement Method Built in [facility] Diagnostic Findings Telemetry: Sinus rhythm, no SVT since termination of her arrhythmia yesterday just after midday. An electrocardiogram today demonstrates sinus rhythm at 88 bpm with a somewhat prolonged QT interval, QTc has increased from 438 before flecainide to 498 this morning. PG Care Time/CCT Total # of Minutes Spent Total Time Spent with Patient: Total time spent is greater than 50% in coordination of care (as documented) at patient's floor/unit and/or counseling patient: Coding Level of Care Code 22915 SUB INP/OBS CARE 2/35MIN Diagnoses Atrial fibrillation I48.91 Supraventricular tachycardia I47.1
--- NOTE | 2025-03-12 13:44 | Discharge Summary ---
Discharge Summary Date of Service March 12, 2025 Principal Dx & Hospital Course #1 = Principal Diagnosis (1) Paroxysmal supraventricular tachycardia: (2) Morbid obesity: (3) Anxiety and depression: (4) Sleep apnea: Plan Patient 59-year-old female who presented to the emergency room with increasing dyspnea on exertion and some palpitations over the past week. Patient has known previous history of AV node reentrant tachycardia. She had undergone ablation in 2013. She had a hospitalization in 2020 for recurrence. Had been doing well on Cardizem. Over the past week did take her as needed propranolol as needed. In the emergency room noted to be in SVT. Patient was admitted to the hospital. Cardiology consultation was obtained. They started on flecainide for rhythm and rate control. She converted to sinus rhythm. She has been tolerating the flecainide. She is up and ambulating. Cardiology recommended continuing the flecainide and will coordinate outpatient evaluation to coordinate a another cardiac ablation. There was no evidence of atrial fibrillation. Cardiology did not feel that there was any indication for anticoagulation at this time. She will continue her other home medications as previously prescribed and follow-up as coordinated. Notes For Next Care Provider Follow-up with EP cardiology to coordinate ablation Medication Changes From Visit Flecainide 100 mg 2 times daily for rate and rhythm control Admission HPI Per Admitting Provider History obtained from chart review and interview with the patient Past medical history of hyperlipidemia, paroxysmal SVT status post ablation on Cardizem, TISHA, depression, Patient presented to the ED with complaints of shortness of breath and fatigue for the last 1 week. She also reports palpitation for which she took her as needed propranolol. Patient also reports increasing shortness of breath and near syncopal episode as well earlier in the day. History of AV zan reentrant tachycardia; ablation in 2013. Patient was admitted with SVT in July 2021; is currently on Cardizem and as needed propranolol. On presentation to the ED, she was normotensive, afebrile and saturating well in room air. EKG on admission showed SVT with rate of 154 bpm; patient was given 5 mg of IV metoprolol which improved the heart rate to 135. Patient was started on Cardizem drip and was referred for admission. Admission Exam Per Admitting Provider See H&P Discharge Exam Constitutional: Alert, nontoxic, obese HEENT: Mucous membranes moist. Lungs: Clear to auscultation, decreased, no wheezes rales or rhonchi CV: S1-S2, regular Abdomen: Soft, nontender, nondistended Extremities: No significant edema Neuro: No focal deficits Psych: Cooperative, normal mood Updated Medication List Medication Instructions Recorded Confirmed Type hydroxyzine HCl 25 mg tablet 25 mg PO TID PRN anxiety #30 tabs 03/11/19 03/10/25 Rx cholecalciferol (vitamin D3) 25 1,000 unit PO QAM 11/24/22 03/10/25 History mcg (1,000 unit) capsule hydrochlorothiazide 25 mg tablet 25 mg PO DAILY PRN Edema #30 tabs 11/25/22 03/10/25 Rx diltiazem HCl 180 mg 180 mg PO QAM #90 caps 09/18/24 03/10/25 Rx capsule,extended release 24 hr, controlled diphenhydramine HCl 25 mg capsule 25 mg PO HS PRN ITCHINESS 01/23/25 03/10/25 History (Benadryl) multivitamin 1 tab PO DAILY 01/23/25 03/10/25 History propranolol 20 mg tablet 20 mg PO TID PRN 01/23/25 03/10/25 History palpitations/HEART RACING rosuvastatin 10 mg tablet (Crestor) 10 mg PO QPM 01/23/25 03/10/25 History venlafaxine 37.5 mg 37.5 mg PO DAILY 01/23/25 03/10/25 History capsule,extended release 24 hr venlafaxine 75 mg capsule,extended 75 mg PO DAILY 01/23/25 03/10/25 History release 24 hr albuterol sulfate 90 mcg/actuation 2 puff inhalation DIRECTED PRN 01/26/25 03/10/25 Rx aerosol inhaler Shortness Of Breath Or Wheezing #8.5 grams flecainide 100 mg tablet 100 mg PO Q12 #60 tabs 03/12/25 Rx Hospital Stay Data Consultations 03/10/25 15:44 ED Decision to Admit Stat 03/10/25 16:35 Consult Cardiology Routine Diagnostic Imagining Performed 03/10/25 14:29 CT angio chest PE protocol Stat Reviewed imaging, laboratory and diagnostic studies. Pertinent findings as below. CBC within normal ranges Electrolytes within normal ranges Creatinine 0.91 Glucose 145 Pending Results Patient Have Any Pending Studies at Discharge: No Discharge Instructions Given to Patient (Per Discharging Provider) Continue current medications as prescribed Follow-up with cardiology to discuss ablation Total Time Total Time Spent Total Time Spent (In Minutes): 33
[2025-03-12 14:14] VITALS: PULSE 93
[2025-03-12] MEDS ORDERED: FLECAINIDE ACETATE 100 MG TABLET PO SCH (21:00)
--- NOTE | 2025-03-13 15:20 | Electrocardiogram Report ---
Test Reason : Blood Pressure : */* mmHG Vent. Rate : 154 BPM Atrial Rate : * BPM P-R Int : * ms QRS Dur : 88 ms QT Int : 320 ms P-R-T Axes : * 30 17 degrees QTcB Int : 512 ms Supraventricular tachycardia Cannot rule out Anterior infarct , age undetermined Abnormal ECG When compared with ECG of 23-Jan-2025 20:21, Vent. rate has increased by 55 bpm Confirmed by Newton Stover ([id number]) on 03/13/2025 3:20:26 PM Referred By: Confirmed By: Newton Stover
--- NOTE | 2025-03-13 16:29 | Electrocardiogram Report ---
Test Reason : Blood Pressure : */* mmHG Vent. Rate : 146 BPM Atrial Rate : 292 BPM P-R Int : * ms QRS Dur : 92 ms QT Int : 320 ms P-R-T Axes : * 23 -6 degrees QTcB Int : 498 ms Supraventricular tachycardia Abnormal ECG When compared with ECG of 10-Mar-2025 13:34, (unconfirmed) No significant change Confirmed by Newton Stover ([id number]) on 03/13/2025 4:29:15 PM Referred By: REFERRED SELF Confirmed By: Newton Stover
--- NOTE | 2025-03-13 16:37 | Electrocardiogram Report ---
Test Reason : Blood Pressure : */* mmHG Vent. Rate : 88 BPM Atrial Rate : 88 BPM P-R Int : 180 ms QRS Dur : 108 ms QT Int : 416 ms P-R-T Axes : 58 28 55 degrees QTcB Int : 503 ms Normal sinus rhythm Right atrial enlargement Prolonged QT Abnormal ECG When compared with ECG of 11-Mar-2025 12:05, (unconfirmed) Sinus rhythm has replaced Atrial flutter Vent. rate has decreased by 58 bpm Confirmed by Newton Stover ([id number]) on 03/13/2025 4:37:12 PM Referred By: REFERRED SELF Confirmed By: Newton Stover
--- NOTE | 2025-03-14 15:29 | XCELERA ---
[id number]
== END 2025-03-12 17:13 | disposition home or self-care (01) | DRG 309 ==
LOC: ED 13:28 → SUATTDRO 16:35 → 2E 16:35